=== PATIENT | male | born 1950 | race Caucasian/White ===

== ENCOUNTER 2021-07-03 05:07 | Emergency (ER) | payer MEDICARE, SELFPAY ==
--- NOTE | ~2021-07-03 | XR_ITS ---
EXAMINATION: XR CHEST CLINICAL INFORMATION: Covid COMPARISON: None TECHNIQUE: Frontal view of the chest was obtained. FINDINGS: Cardiac silhouette is normal in size. The lungs are well aerated. There is no lobar consolidation. No pleural effusion or pneumothorax. Dextroscoliosis of the thoracic spine. XR/XR chest 1V IMPRESSION: No acute pulmonary pathology.
--- NOTE | ~2021-07-03 | CT_ITS ---
EXAMINATION: CT HEAD WITHOUT CONTRAST CLINICAL INFORMATION: Dementia. Altered mental status. COMPARISON: None TECHNIQUE: Contiguous axial imaging was performed from the skull base to vertex without intravenous administration of contrast. This CT examination was performed using dose optimization techniques as appropriate, variously including the following: *Automated exposure control *Adjustment of mA and/or kV according to patient size (this includes techniques or standardized protocols for targeted exams where dose is matched to indication/reason for exam; i.e. extremities or head) *Use of iterative reconstruction technique DLP: 703 mGy-cm FINDINGS: There is no evidence of acute intracranial hemorrhage or territorial infarction. No abnormal mass effect or midline shift is seen. Mariano to white matter differentiation is well preserved. No extra-axial fluid collections are identified. Mild prominence of the sulci, which could indicate mild, diffuse parenchymal atrophy. There is no abnormal attenuation within the brain parenchyma. The osseous structures and soft tissues are normal. The mastoid air cells and visualized portions of the paranasal sinuses are well aerated. CT/CT head/brain wo con IMPRESSION: No acute intracranial hemorrhage or mass effect. Mild, diffuse parenchymal atrophy.
[2021-07-03 05:18] VITALS: BP 115/60; BP 119/64; PULSE 70; PULSE 77; RESP 16; TEMP 36.1; O2SAT 96; O2SAT 98; BMI 20.5
[2021-07-03 05:56] LABS: Basophils Percent Auto 0.3 % (0-2); Eosinophils Percent Auto 0.2 % (0-4); Hematocrit 39.8 % (42.0-52.0); Hemoglobin 13.1 g/dl (14.0-18.0); Imm Gran Abs Auto 0.06 X10*3/uL (0.00-0.03); Imm Gran Pct Auto 0.6 % (0.0-0.4); Lymphocytes Absolute Auto 0.8 X10*3/uL (1.2-4.9); Lymphocytes Percent Auto 8.4 % (20-40); MANUAL DIFF FLAG NO; Mean Corpuscular HGB Conc 32.9 g/dl (31.0-36.0); Mean Corpuscular Hemoglobin 30.1 pg (27.0-33.0); Mean Corpuscular Volume 91.5 fL (80.0-98.0); Mean Platelet Volume 9.5 fL (9.4-12.4); Monocytes Absolute Auto 1.1 X10*3/uL (0.1-1.2); Monocytes Percent Auto 12.1 % (2-11); Neutrophils Absolute Auto 7.3 x10*3/uL (2.0-8.3); Neutrophils Percent Auto 78.4 % (45-73); Platelet Count 181 X10*3/uL (160-400); Red Blood Count 4.35 X10*6/uL (4.60-5.80); Red Cell Distribution Width 12.2 % (11.0-16.0); White Blood Count 9.3 X10*3/uL (4.8-10.8)
[2021-07-03 06:01] LABS: COVID-19 Test Positive (Negative); IDNOW Serial# 9DD0AD1C
[2021-07-03 06:10] LABS: Alanine Aminotransferase 16 U/L (0-40); Albumin Level 4.1 g/dL (3.5-5.0); Alkaline Phosphatase 76 U/L (39-117); Anion Gap 11 (12-20); Aspartate Amino Transferase 24 U/L (5-37); Bilirubin Total 0.5 mg/dL (0.0-1.0); Blood Urea Nitrogen 21 mg/dL (9-16); Calcium 9.3 mg/dL (8.4-10.2); Carbon Dioxide 29 mmol/L (22-29); Chloride 102 mmol/L (96-108); Creatinine Clr Calc Pharmacy 61.3; Estimated Glomerular Filt Rate > 60; Glucose Random 129 mg/dL (60-115); Potassium 3.7 mmol/L (3.3-5.1); Sodium 138 mmol/L (135-145); Total Protein 7.1 g/dL (6.5-8.0)
--- NOTE | 2021-07-03 09:21 | ED_ITS ---
HPI - General Adult General Chief complaint: General Medical Stated complaint: ams Time Seen by Provider: 07/03/21 05:38 Source: patient Mode of arrival: ambulatory Limitations: no limitations History of Present Illness HPI narrative: Patient with no significant past medical history noticed that he is losing memory for last few months walked to the police station saying that his needs some help patient was wearing different sizes of shoes states that he could not find the right show at home. Patient does live with his girlfriend was not with him at this time. Patient denies any cough shortness of breath or chest pain Related Data Allergies Allergy/AdvReac Type Severity Reaction Status Date / Time No Known Allergies Allergy Unverified 07/03/21 05:39 Review of Systems Review of Systems: Yes Unobtainable due to mental status PMFSH Social History Social History Advance Directives: No Advance Directives Information Provided: Yes Physical Exam Vital Signs: Vital Signs: Last Vital Signs Temp 98.0 F 07/03/21 09:49 Pulse 70 07/03/21 09:49 Resp 15 07/03/21 09:49 BP 123/72 07/03/21 09:49 Pulse Ox 99 07/03/21 09:49 BMI result Body Mass Index 20.5 Appearance: Alert. Oriented X1-2. No acute distress. Eyes: PERRLA, No Nystagmus no pallor icterus ENT: Pharynx normal. Oral Mucosa moist Neck: Normal inspection. Neck supple. CVS: Normal heart rate and rhythm. Pulses normal. Respiratory: No respiratory distress. Equal air entry bilateral, no wheezing/rales/rhonchi Abdomen: Soft and nontender. Bowel sounds are present, no mass palpable, no CVA tenderness Skin: Skin warm and dry. Normal skin color. Normal skin turgor. Extremities: No lower extremity edema. No calf tenderness Neuro: Oriented X 3. No motor deficit. No sensory deficit.No cerebellar signs , cranial nerves II-XII intact unable to subtract 7 from 100, unable to add numbers, difficulty in judgment and analysis memory at 5 minutes 1/3 Medical Decision Making MDM Narrative Medical decision making narrative: Patient dementia under diagnosis spoke to patient's family with his ex phone number [phone] will come to take the patient home she is aware about the dementia and will follow up with PCP patient has COVID infection not vaccinated new lung infiltrate no hypoxia saturating 99% at room air Lab Data Lab results reviewed: Yes I reviewed the patient's lab results. Result diagrams: 07/03/21 05:51 07/03/21 05:51 Labs: Lab Results 07/03/21 07/03/21 07/03/21 Range/Units 05:51 05:51 05:51 WBC 9.3 (4.8-10.8) X10*3/uL RBC 4.35 L (4.60-5.80) X10*6/uL Hgb 13.1 L (14.0-18.0) g/dl Hct 39.8 L (42.0-52.0) % MCV 91.5 (80.0-98.0) fL MCH 30.1 (27.0-33.0) pg MCHC 32.9 (31.0-36.0) g/dl RDW 12.2 (11.0-16.0) % Plt Count 181 (160-400) X10*3/uL MPV 9.5 (9.4-12.4) fL Immature Gran % (Auto) 0.6 H (0.0-0.4) % Neut % (Auto) 78.4 H (45-73) % Lymph % (Auto) 8.4 L (20-40) % [place] % (Auto) 12.1 H (2-11) % Eos % (Auto) 0.2 (0-4) % Baso % (Auto) 0.3 (0-2) % Lymph # (Auto) 0.8 L (1.2-4.9) X10*3/uL [place] # (Auto) 1.1 (0.1-1.2) X10*3/uL Eos # (Auto) 0.0 (0.0-0.4) X10*3/uL Baso # (Auto) 0.0 (0.0-0.2) X10*3/uL Abs Immat Gran (auto) 0.06 H (0.00-0.03) X10*3/uL Absolute Neuts (auto) 7.3 (2.0-8.3) x10*3/uL Absolute Nucleated RBC 0.000 (0.0-0.012) X10*3/uL Nucleated RBC % (auto) 0.0 (0.0-0.2) /100WBC Sodium 138 (135-145) mmol/L Potassium 3.7 (3.3-5.1) mmol/L Chloride 102 (96-108) mmol/L Carbon Dioxide 29 (22-29) mmol/L Anion Gap 11 L (12-20) BUN 21 H (9-16) mg/dL Creatinine 1.10 (0.5-1.4) mg/dL Estim Creat Clear Calc 61.3 Estimated GFR > 60 Random Glucose 129 H (60-115) mg/dL Calcium 9.3 (8.4-10.2) mg/dL Total Bilirubin 0.5 (0.0-1.0) mg/dL AST 24 (5-37) U/L ALT 16 (0-40) U/L Alkaline Phosphatase 76 (39-117) U/L Total Protein 7.1 (6.5-8.0) g/dL Albumin 4.1 (3.5-5.0) g/dL Urine Color Urine Appearance Urine pH (5.0-8.0) Ur Specific [place] (1.005-1.025) Urine Protein (NEG-TRACE) MG/DL Urine Glucose (UA) (NEG) MG/DL Urine Ketones (NEG) MG/DL Urine Blood (NEG) Urine Nitrite (NEG) Ur Leukocyte Esterase (NEG) Urine RBC (0) /HPF Urine WBC (0-4) /HPF Ur Squamous Epith Cells /LPF Amorphous Sediment /LPF Urine Bacteria /LPF Urine Mucus /LPF COVID-19 (GUILLERMO) Positive A (Negative) COVID-19 Clin Com See Note 07/03/21 Range/Units 12:21 WBC (4.8-10.8) X10*3/uL RBC (4.60-5.80) X10*6/uL Hgb (14.0-18.0) g/dl Hct (42.0-52.0) % MCV (80.0-98.0) fL MCH (27.0-33.0) pg MCHC (31.0-36.0) g/dl RDW (11.0-16.0) % Plt Count (160-400) X10*3/uL MPV (9.4-12.4) fL Immature Gran % (Auto) (0.0-0.4) % Neut % (Auto) (45-73) % Lymph % (Auto) (20-40) % [place] % (Auto) (2-11) % Eos % (Auto) (0-4) % Baso % (Auto) (0-2) % Lymph # (Auto) (1.2-4.9) X10*3/uL [place] # (Auto) (0.1-1.2) X10*3/uL Eos # (Auto) (0.0-0.4) X10*3/uL Baso # (Auto) (0.0-0.2) X10*3/uL Abs Immat Gran (auto) (0.00-0.03) X10*3/uL Absolute Neuts (auto) (2.0-8.3) x10*3/uL Absolute Nucleated RBC (0.0-0.012) X10*3/uL Nucleated RBC % (auto) (0.0-0.2) /100WBC Sodium (135-145) mmol/L Potassium (3.3-5.1) mmol/L Chloride (96-108) mmol/L Carbon Dioxide (22-29) mmol/L Anion Gap (12-20) BUN (9-16) mg/dL Creatinine (0.5-1.4) mg/dL Estim Creat Clear Calc Estimated GFR Random Glucose (60-115) mg/dL Calcium (8.4-10.2) mg/dL Total Bilirubin (0.0-1.0) mg/dL AST (5-37) U/L ALT (0-40) U/L Alkaline Phosphatase (39-117) U/L Total Protein (6.5-8.0) g/dL Albumin (3.5-5.0) g/dL Urine Color YELLOW Urine Appearance CLEAR Urine pH 5.5 (5.0-8.0) Ur Specific [place] >= 1.030 H (1.005-1.025) Urine Protein 1+ H (NEG-TRACE) MG/DL Urine Glucose (UA) NEG (NEG) MG/DL Urine Ketones NEG (NEG) MG/DL Urine Blood NEG (NEG) Urine Nitrite NEG (NEG) Ur Leukocyte Esterase NEG (NEG) Urine RBC 0 (0) /HPF Urine WBC 0 (0-4) /HPF Ur Squamous Epith Cells 1+ /LPF Amorphous Sediment 1+ /LPF Urine Bacteria NONE /LPF Urine Mucus 3+ /LPF COVID-19 (GUILLERMO) (Negative) COVID-19 Clin Com Discharge Plan Discharge Clinical Impression: COVID-19 Dementia Qualifiers: Dementia type: Alzheimer's Alzheimer's disease onset: late-onset Dementia behavioral disturbance: without behavioral disturbance Qualified Code(s): G30.1 - Alzheimer's disease with late onset Patient Disposition: Home, Self-Care Instructions: Dementia (ED), COVID-19 (Coronavirus Disease 2019) (ED) Additional Instructions: Report to the ER if increased shortness of breath follow-up with PCP for further evaluation and treatment Social distancing as advised
--- NOTE | 2021-07-03 09:33 | ECG_ITS ---
Test Reason : GENERAL Blood Pressure : / mmHG Vent. Rate : 069 BPM Atrial Rate : 069 BPM P-R Int : 144 ms QRS Dur : 096 ms QT Int : 414 ms P-R-T Axes : 082 053 058 degrees QTc Int : 443 ms Normal sinus rhythm Normal ECG No previous ECGs available Referred By: Sandip Garcia Electronically Signed By:JOAQUIM FULTON MD
[2021-07-03 09:49] VITALS: BP 123/72; PULSE 70; RESP 15; TEMP 36.7; O2SAT 99
--- NOTE | 2021-07-03 12:07 | MHC.CM.ED ---
Discussed with MD. Patient brought in after self presenting to police department for confusion. No phone number for patient of girlfriend, Elzbieta Waggoner listed. Patient tested positive for COVID-19, ready for dc from ED, need family contacted. Review of chart, no previous records. Not able to locate phone number for Elzbieta. Call to [facility] police department. They report patient called there at [phone] today and then walked into lobby at [phone] with confusion. They do not have contact information for girlfriend or patient's home phone number. They will go by the patient's home and attempt to obtain phone number and call back to us with information.
[2021-07-03 12:28] LABS: Appearance Urine CLEAR; Color Urine YELLOW; Glucose Urine UA NEG (NEG); Leukocyte Esterase Urine NEG (NEG); Nitrite Urine NEG (NEG); PH 5.5 (5.0-8.0); Specific Gravity - Urine >= 1.030 (1.005-1.025); UACC Culture Trigger NO; Urine Blood NEG (NEG); Urine Ketones NEG (NEG); Urine Protein 1+ MG/DL (NEG-TRACE)
[2021-07-03 12:34] LABS: Amorphous Sediment Urine 1+ /LPF; Mucus Urine 3+ /LPF; RBC Urine 0 /HPF (0); Squamous Epithelial Cell Urine 1+ /LPF; WBC Urine 0 /HPF (0-4)
--- NOTE | 2021-07-03 12:49 | MHC.CM.ED ---
Received a return call from [facility] department. They did not obtain a phone number for contact, but reported officer went by home and informed person there that patient is ready for supervisor general from ED and that person stated they would come pick him up. ED RN informed of above
[2021-07-03 14:09] VITALS: BP 116/75; PULSE 85; RESP 16; TEMP 36.7; O2SAT 99
== END 2021-07-03 23:18 | disposition home or self-care (01) ==
PROVIDERS: Student in an Organized Health Care Education/Training Program; Emergency Provider Internal Medicine
DX: U07.1 COVID-19 (principal); G30.1 Alzheimer's disease with late onset
CPT/HCPCS: 70450; 71045; 80053; 81001; 85025; 87635; 93005; 99283; 99284

== ENCOUNTER 2021-12-23 19:36 | Inpatient (IN) | payer MEDICARE, SELFPAY ==
--- NOTE | ~2021-12-23 | CT_ITS ---
EXAMINATION: CT HEAD WITHOUT CONTRAST CLINICAL INFORMATION: New onset psychosis. Rule out CVA. COMPARISON: Previous head CT June 2021 TECHNIQUE: Contiguous axial imaging was performed from the skull base to vertex without intravenous administration of contrast. This CT examination was performed using dose optimization techniques as appropriate, variously including the following: *Automated exposure control *Adjustment of mA and/or kV according to patient size (this includes techniques or standardized protocols for targeted exams where dose is matched to indication/reason for exam; i.e. extremities or head) *Use of iterative reconstruction technique DLP: 831 mGy-cm FINDINGS: There is no evidence of an extra-axial collection. There is no evidence of intra-axial or extra-axial hemorrhage. The ventricles and extra-axial CSF spaces are prominent suggestive of mild generalized atrophy. There is mild nonspecific periventricular white matter disease. No mass, mass effect or infarct is seen. No skull fracture is seen. There are polyps or cysts in the right maxillary sinus. Paranasal sinuses mastoid air cells and middle ears are otherwise clear. CT/CT head/brain wo con IMPRESSION: No acute findings.
[2021-12-23 19:47] VITALS: BP 112/76; PULSE 84; RESP 18; TEMP 36.3; O2SAT 97; BMI 23.1
--- NOTE | 2021-12-23 19:49 | ED_ITS ---
HPI - General Adult General Chief complaint: Psychiatric Symptoms Stated complaint: hallucinations Time Seen by Provider: 12/23/21 19:41 Source: patient Mode of arrival: ambulatory Limitations: no limitations History of Present Illness HPI narrative: Patient comes to the emergency room complaining of visual hallucinations. Patient states that he believes he has been diagnosed with dementia in the past. Over the last 3 years, the visual hallucinations have gradually been getting worse. Patient states that he sees people that he knows or that he does not know, he has very weird vivid dreams. Patient denies SI or HI. Patient is not on any medications. Patient lives with his girlfriend. Lang, patient walked to the police station, stated that he needs help and his hallucinations are getting worse, PD called EMS Related Data Home Medications Medication Instructions Recorded Confirmed No Known Home Meds 12/23/21 12/23/21 Allergies Allergy/AdvReac Type Severity Reaction Status Date / Time No Known Allergies Allergy Unverified 07/03/21 05:39 Review of Systems Review of Systems: Constitutional : No Weight loss, No Fever, No Chills, No Night Sweats, No Fatigue, No Malaise ENT/Mouth : No Hearing loss, No Ear Pain, No Nasal Congestion, No Sinus Pain, No Hoarseness, No sore throat, No Rhinorrhea, No Swallowing Difficulty Eyes: No Eye Pain, No Swelling, No Redness, No Foreign Body, No Discharge, No Vision Changes Cardiovascular : No Chest Pain, No SOB, No Dyspnea on Exertion, No Orthopnea, No Edema, No Palpitations Respiratory : No Cough, No Sputum, No Wheezing, No Smoke Exposure, No Dyspnea Gastrointestinal : No Nausea, No Vomiting, No Diarrhea, No Constipation, No abdominal Pain, No Hematochezia, No Melena Genitourinary : no irregular bleeding, No Dysuria, No Urinary Frequency, No Hematuria, No Urinary Incontinence, No Urgency, No Flank Pain, No Urinary Flow Changes, No Hesitancy Musculoskeletal : No joint pain, No Myalgias, No Joint Swelling Skin : No Skin Lesions, No rash Neuro : No Weakness, No Numbness, No Paresthesias, No Loss of Consciousness, No Dizziness, No Headache Psych : No Anxiety/Panic, No Depression, No SI/HI/AH/VH, No Social Issues, complaining of visual hallucinations, seeing people and having weird dreams Heme/Lymph: No Bruising, No Bleeding,No Lymphadenopathy Endocrine : No Polyuria, No Polydipsia, No Temperature Intolerance PMFSH Social History Social History Advance Directives: No Advance Directives Information Provided: No Physical Exam ED Vital Signs: Vital Signs - 24 hr 12/23/21 19:47 12/24/21 00:02 Temperature 97.3 F 97.4 F Pulse Rate 84 77 Respiratory Rate 18 16 Blood Pressure 112/76 137/77 Pulse Oximetry 97 98 Oxygen Delivery Method Room Air Room Air BMI result Body Mass Index 23.1 Const Other: Appearance: Alert. Oriented X3. No acute distress. Eyes: Pupils equal, round and reactive to light. ENT: Pharynx normal. Neck: Normal inspection. Neck supple. No lymph nodes noted. No crepitus CVS: Normal heart rate and rhythm. Pulses normal. Normal S1 and S2 Respiratory: No respiratory distress. Breath sounds normal. No Wheezing. No rales Abdomen: Soft and nontender. No rigidity. No distention. Skin: Skin warm and dry. Normal skin color. Normal skin turgor. Extremities: No lower extremity edema. No Lacerations. No Rash Neuro: Oriented X 3. No motor deficit. No sensory deficit. Moving all extremities. No slurred speech. CN 2 through 12 grossly intact Psych: calm, cooperative, normal affect, coherent Course Course Course Narrative: Labs are pending. Patient is calm, cooperative. It is possible that his symptoms are from worsening dementia. Patient had a CT scan in June of 2021, showed mild diffuse parenchymal atrophy 1:30am N saw the pt , since the patient's symptoms are not behavioral, this is likely worsening dementia, recommendations: Psych consult and Case Management consult. Medical Decision Making Lab Data Result diagrams: 12/23/21 20:18 12/23/21 20:18 Labs: Lab Results 12/23/21 12/23/21 12/23/21 Range/Units 20:18 20:18 20:18 WBC 6.8 (4.8-10.8) X10*3/uL RBC 4.35 L (4.60-5.80) X10*6/uL Hgb 12.6 L (14.0-18.0) g/dl Hct 38.7 L (42.0-52.0) % MCV 89.0 (80.0-98.0) fL MCH 29.0 (27.0-33.0) pg MCHC 32.6 (31.0-36.0) g/dl RDW 12.5 (11.0-16.0) % Plt Count TNP MPV 10.4 (9.4-12.4) fL Immature Gran % (Auto) 0.1 (0.0-0.4) % Neut % (Auto) 67.9 (45-73) % Lymph % (Auto) 22.7 (20-40) % [place] % (Auto) 8.0 (2-11) % Eos % (Auto) 1.0 (0-4) % Baso % (Auto) 0.3 (0-2) % Lymph # (Auto) 1.5 (1.2-4.9) X10*3/uL [place] # (Auto) 0.5 (0.1-1.2) X10*3/uL Eos # (Auto) 0.1 (0.0-0.4) X10*3/uL Baso # (Auto) 0.0 (0.0-0.2) X10*3/uL Abs Immat Gran (auto) 0.01 (0.00-0.03) X10*3/uL Absolute Neuts (auto) 4.6 (2.0-8.3) x10*3/uL Absolute Nucleated RBC 0.000 (0.0-0.012) X10*3/uL Nucleated RBC % (auto) 0.0 (0.0-0.2) /100WBC Smear Tech's Comments VERIFIED Sodium 139 (135-145) mmol/L Potassium 3.8 (3.3-5.1) mmol/L Chloride 103 (96-108) mmol/L Carbon Dioxide 27 (22-29) mmol/L Anion Gap 13 (12-20) BUN 38 H D (9-16) mg/dL Creatinine 1.25 (0.5-1.4) mg/dL Estim Creat Clear Calc 60.7 Estimated GFR 57 Random Glucose 196 H D (60-115) mg/dL Calcium 9.5 (8.4-10.2) mg/dL Magnesium 2.2 (1.6-2.6) mg/dL Total Bilirubin 1.0 (0.0-1.0) mg/dL Direct Bilirubin 0.4 (0.0-0.5) mg/dL AST 17 (5-37) U/L ALT 9 (0-40) U/L Alkaline Phosphatase 69 (39-117) U/L Total Protein 7.3 (6.5-8.0) g/dL Albumin 4.4 (3.5-5.0) g/dL Urine Color Urine Appearance Urine pH (5.0-8.0) Ur Specific [place] (1.005-1.025) Urine Protein (NEG-TRACE) MG/DL Urine Glucose (UA) (NEG) MG/DL Urine Ketones (NEG) MG/DL Urine Blood (NEG) Urine Nitrite (NEG) Ur Leukocyte Esterase (NEG) Salicylates < 5.0 L (15-30) mg/dL Urine Opiates Screen (Not Detect) Urine Fentanyl Screen (Not Detect) Acetaminophen < 1 (<30) mcg/mL Ur Barbiturates Screen (Not Detect) Ur Phencyclidine Scrn (Not Detect) Ur Amphetamines Screen (Not Detect) U Benzodiazepines Scrn (Not Detect) Urine Cocaine Screen (Not Detect) U Marijuana (THC) Screen (Not Detect) Ethyl Alcohol < 10 mg/dL COVID-19 (GUILLERMO) Negative (Negative) COVID-19 Clin Com See Note 12/23/21 12/23/21 Range/Units 22:37 22:37 WBC (4.8-10.8) X10*3/uL RBC (4.60-5.80) X10*6/uL Hgb (14.0-18.0) g/dl Hct (42.0-52.0) % MCV (80.0-98.0) fL MCH (27.0-33.0) pg MCHC (31.0-36.0) g/dl RDW (11.0-16.0) % Plt Count MPV (9.4-12.4) fL Immature Gran % (Auto) (0.0-0.4) % Neut % (Auto) (45-73) % Lymph % (Auto) (20-40) % [place] % (Auto) (2-11) % Eos % (Auto) (0-4) % Baso % (Auto) (0-2) % Lymph # (Auto) (1.2-4.9) X10*3/uL [place] # (Auto) (0.1-1.2) X10*3/uL Eos # (Auto) (0.0-0.4) X10*3/uL Baso # (Auto) (0.0-0.2) X10*3/uL Abs Immat Gran (auto) (0.00-0.03) X10*3/uL Absolute Neuts (auto) (2.0-8.3) x10*3/uL Absolute Nucleated RBC (0.0-0.012) X10*3/uL Nucleated RBC % (auto) (0.0-0.2) /100WBC Smear Tech's Comments Sodium (135-145) mmol/L Potassium (3.3-5.1) mmol/L Chloride (96-108) mmol/L Carbon Dioxide (22-29) mmol/L Anion Gap (12-20) BUN (9-16) mg/dL Creatinine (0.5-1.4) mg/dL Estim Creat Clear Calc Estimated GFR Random Glucose (60-115) mg/dL Calcium (8.4-10.2) mg/dL Magnesium (1.6-2.6) mg/dL Total Bilirubin (0.0-1.0) mg/dL Direct Bilirubin (0.0-0.5) mg/dL AST (5-37) U/L ALT (0-40) U/L Alkaline Phosphatase (39-117) U/L Total Protein (6.5-8.0) g/dL Albumin (3.5-5.0) g/dL Urine Color DK YELLOW Urine Appearance CLEAR Urine pH 5.5 (5.0-8.0) Ur Specific [place] >= 1.030 H (1.005-1.025) Urine Protein TRACE (NEG-TRACE) MG/DL Urine Glucose (UA) 250 H (NEG) MG/DL Urine Ketones NEG (NEG) MG/DL Urine Blood NEG (NEG) Urine Nitrite NEG (NEG) Ur Leukocyte Esterase NEG (NEG) Salicylates (15-30) mg/dL Urine Opiates Screen Not Detected (Not Detect) Urine Fentanyl Screen Not Detected (Not Detect) Acetaminophen (<30) mcg/mL Ur Barbiturates Screen Not Detected (Not Detect) Ur Phencyclidine Scrn Not Detected (Not Detect) Ur Amphetamines Screen Not Detected (Not Detect) U Benzodiazepines Scrn Not Detected (Not Detect) Urine Cocaine Screen Not Detected (Not Detect) U Marijuana (THC) Screen Not Detected (Not Detect) Ethyl Alcohol mg/dL COVID-19 (GUILLERMO) (Negative) COVID-19 Clin Com Discharge Plan Discharge Clinical Impression: Hallucination, visual, Dementia Patient Disposition: Still a Patient Prescriptions: No Action No Known Home Meds
[2021-12-23 20:34] LABS: Eosinophils Absolute Auto 0.1 X10*3/uL (0.0-0.4); Monocytes Absolute Auto 0.5 X10*3/uL (0.1-1.2); PLT CLUMP 1; SCAN SMEAR FLAG 1
[2021-12-23 20:35] LABS: Basophils Percent Auto 0.3 % (0-2); Hematocrit 38.7 % (42.0-52.0); Hemoglobin 12.6 g/dl (14.0-18.0); Imm Gran Abs Auto 0.01 X10*3/uL (0.00-0.03); Imm Gran Pct Auto 0.1 % (0.0-0.4); Lymphocytes Absolute Auto 1.5 X10*3/uL (1.2-4.9); Lymphocytes Percent Auto 22.7 % (20-40); MANUAL DIFF FLAG SCAN; Mean Corpuscular HGB Conc 32.6 g/dl (31.0-36.0); Mean Platelet Volume 10.4 fL (9.4-12.4); Neutrophils Absolute Auto 4.6 x10*3/uL (2.0-8.3); Neutrophils Percent Auto 67.9 % (45-73); Red Blood Count 4.35 X10*6/uL (4.60-5.80); Red Cell Distribution Width 12.5 % (11.0-16.0)
[2021-12-23 20:41] LABS: COVID-19 Test Negative (Negative)
[2021-12-23 20:43] LABS: Acetaminophen LAB < 1 mcg/mL (<30); Alanine Aminotransferase 9 U/L (0-40); Albumin Level 4.4 g/dL (3.5-5.0); Alkaline Phosphatase 69 U/L (39-117); Anion Gap 13 (12-20); Aspartate Amino Transferase 17 U/L (5-37); Bilirubin Direct 0.4 mg/dL (0.0-0.5); Blood Urea Nitrogen 38 mg/dL (9-16); Calcium 9.5 mg/dL (8.4-10.2); Carbon Dioxide 27 mmol/L (22-29); Chloride 103 mmol/L (96-108); Creatinine Clr Calc Pharmacy 60.7; Estimated Glomerular Filt Rate 57; Ethanol < 10 mg/dL; Glucose Random 196 mg/dL (60-115); Magnesium 2.2 mg/dL (1.6-2.6); Potassium 3.8 mmol/L (3.3-5.1); Salicylate < 5.0 mg/dL (15-30); Sodium 139 mmol/L (135-145); Total Protein 7.3 g/dL (6.5-8.0)
[2021-12-23 20:54] LABS: White Blood Count 6.8 X10*3/uL (4.8-10.8)
[2021-12-23 20:55] LABS: SLIDE REVIEW VERIFIED
--- NOTE | 2021-12-23 21:13 | PHA.MEDREC ---
Pharmacy Consult ? Medication Reconciliation Pharmacy has completed the medication reconciliation. Spoke with patient in , patient is not on any medications or otc meds
[2021-12-23 22:49] LABS: Appearance Urine CLEAR; Color Urine DK YELLOW; Glucose Urine UA 250 MG/DL (NEG); Leukocyte Esterase Urine NEG (NEG); Nitrite Urine NEG (NEG); PH 5.5 (5.0-8.0); Specific Gravity - Urine >= 1.030 (1.005-1.025); Urine Blood NEG (NEG); Urine Ketones NEG (NEG); Urine Protein TRACE MG/DL (NEG-TRACE)
[2021-12-23 23:32] LABS: Amphetamine Screen Urine Not Detected (Not Detect); Barbiturates, Urine Not Detected (Not Detect); Benzodiazepines Screen Urine Not Detected (Not Detect); Cannabinoid Screen Urine Not Detected (Not Detect); Cocaine Screen Urine Not Detected (Not Detect); Fentanyl, urine Not Detected (Not Detect); Opiate Screen Urine Not Detected (Not Detect); Phencyclidine Screen Urine Not Detected (Not Detect)
[2021-12-24 00:02] VITALS: BP 137/77; PULSE 77; RESP 16; TEMP 36.3; O2SAT 98
--- NOTE | 2021-12-24 06:31 | PC.NURSE ---
Patient slept through the night, no distress observed/reported, patient requires redirection related to orientation due to dementia, behavior appropriate, BHN assessed the patient, well engaged, disposition case management referral and psych evaluation, order are in place, patient is currently not on any medication, VSS, will continue to monitor.
--- NOTE | 2021-12-24 11:20 | PC.NURSE ---
Pt inquiring what plan of care is. Pt informed case management will in to see patient at some time today. Pt reports he self presented to the ED via ambulance for memory issues, I can't remember anything and states he hears and sees people that are not there. Pt calm at this time, pleasant, and cooperative with care.
--- NOTE | 2021-12-24 14:07 | MHC.CM.ED ---
Received case management consult overnight. Patient came to the ER due to hallucinations. Patient was cleared by [facility]. Patient was diagnosed with dementia a couple of years ago but hasn't received any follow up with neurology. Patient was cleared by [facility]. Psych consult for medication recommendations and case management consult were recommended. Psych consult is still pending. Copy of NICOLAS rodrigues obtained and placed in chart. Case management will wait until patient is seen by psych to help assist with discharge. T/W spoke with Pat on M5 to verify consult was received. Continue to monitor for d/c needs.
--- NOTE | 2021-12-24 15:56 | PM.PSYCN ---
History of Present Illness Date of Service: 12/24/2021 Chief Complaint: hallucinations Reason for Consult: SESAY Discussed with referring provider: Yes Sources of Information: patient interviewed, chart reviewed and crisis/core team assessment reviewed HPI Narrative: Mr. Yañez is a 71 year-old male with hx of dementia, brought by police as he initially went to police stating reporting hallucinations. Utox neg. CBC wnl, CMP- elevated BUN. Mr. Yañez report she went to police because he thinks his memory is not as good, and has had visual hallucinations for a while. He reports he was here one year ago- he was last here in 07/17/2021. He reports he lives with significant other, Elzbieta but does not know her phone number or anyone else phone number. Initially he was having difficulty telling this movie writer why he was here, stating what did it say in the chart? He is oriented to month, day, date, place but not to year states it is 2022. Clock draw test to get better sense of executive function- shows significant impairment- place numbers in columns but stated on left column with numbers from 1-6. He was not able to place hands when asked to show time: 10 past 11. He does report getting more confused at night. Pt reports he had visual hallucinations 3 days ago, but not today. He is clear in that what he sees other people can't see it. He denies symptoms of depression, anxiety. He denies SI/HI. Attempts to call only number we have in the records- [phone] (it says it is from ex ) were not successful for further history. Mr. Yañez appears to be poor historian and unreliable youth counselor. Past Psychiatric History: Inpatient:none Diagnostics Vital Signs (24Hr): Vital Signs - 24 hr 12/23/21 19:47 12/24/21 00:02 Temperature 97.3 F 97.4 F Pulse Rate 84 77 Respiratory Rate 18 16 Blood Pressure 112/76 137/77 Pulse Oximetry 97 98 Oxygen Delivery Method Room Air Room Air BMI result Body Mass Index 23.1 Labs Results: 12/23/21 20:18 12/23/21 20:18 Labs: Laboratory Results - last 48 hr 12/23/21 12/23/21 12/23/21 20:18 20:18 20:18 WBC 6.8 RBC 4.35 L Hgb 12.6 L Hct 38.7 L MCV 89.0 MCH 29.0 MCHC 32.6 RDW 12.5 Plt Count TNP MPV 10.4 Immature Gran % (Auto) 0.1 Neut % (Auto) 67.9 Lymph % (Auto) 22.7 [place] % (Auto) 8.0 Eos % (Auto) 1.0 Baso % (Auto) 0.3 Lymph # (Auto) 1.5 [place] # (Auto) 0.5 Eos # (Auto) 0.1 Baso # (Auto) 0.0 Abs Immat Gran (auto) 0.01 Absolute Neuts (auto) 4.6 Absolute Nucleated RBC 0.000 Nucleated RBC % (auto) 0.0 Smear Tech's Comments VERIFIED Sodium 139 Potassium 3.8 Chloride 103 Carbon Dioxide 27 Anion Gap 13 BUN 38 H D Creatinine 1.25 Estim Creat Clear Calc 60.7 Estimated GFR 57 Random Glucose 196 H D Calcium 9.5 Magnesium 2.2 Total Bilirubin 1.0 Direct Bilirubin 0.4 AST 17 ALT 9 Alkaline Phosphatase 69 Total Protein 7.3 Albumin 4.4 Urine Color Urine Appearance Urine pH Ur Specific [place] Urine Protein Urine Glucose (UA) Urine Ketones Urine Blood Urine Nitrite Ur Leukocyte Esterase Salicylates < 5.0 L Urine Opiates Screen Urine Fentanyl Screen Acetaminophen < 1 Ur Barbiturates Screen Ur Phencyclidine Scrn Ur Amphetamines Screen U Benzodiazepines Scrn Urine Cocaine Screen U Marijuana (THC) Screen Ethyl Alcohol < 10 COVID-19 (GUILLERMO) Negative COVID-19 Clin Com See Note 12/23/21 12/23/21 22:37 22:37 WBC RBC Hgb Hct MCV MCH MCHC RDW Plt Count MPV Immature Gran % (Auto) Neut % (Auto) Lymph % (Auto) [place] % (Auto) Eos % (Auto) Baso % (Auto) Lymph # (Auto) [place] # (Auto) Eos # (Auto) Baso # (Auto) Abs Immat Gran (auto) Absolute Neuts (auto) Absolute Nucleated RBC Nucleated RBC % (auto) Smear Tech's Comments Sodium Potassium Chloride Carbon Dioxide Anion Gap BUN Creatinine Estim Creat Clear Calc Estimated GFR Random Glucose Calcium Magnesium Total Bilirubin Direct Bilirubin AST ALT Alkaline Phosphatase Total Protein Albumin Urine Color DK YELLOW Urine Appearance CLEAR Urine pH 5.5 Ur Specific [place] >= 1.030 H Urine Protein TRACE Urine Glucose (UA) 250 H Urine Ketones NEG Urine Blood NEG Urine Nitrite NEG Ur Leukocyte Esterase NEG Salicylates Urine Opiates Screen Not Detected Urine Fentanyl Screen Not Detected Acetaminophen Ur Barbiturates Screen Not Detected Ur Phencyclidine Scrn Not Detected Ur Amphetamines Screen Not Detected U Benzodiazepines Scrn Not Detected Urine Cocaine Screen Not Detected U Marijuana (THC) Screen Not Detected Ethyl Alcohol COVID-19 (GUILLERMO) COVID-19 Clin Com Mental Status Exam Mental Status Exam Narrative: Appearance: face and arms appeared overly tanned, which raises concern as to whether pt has been wondering on his own, wearing hospital gown, fair hygiene in NAD Behavior:cooperative, friendly psychomotor: no agitation or retardation noted Speech:clear, difficulty finding words, spontaneous, repetitive, Thought process:repetitive Thought content:no significant substance to content other than he is concern about his memory and had hallucinations. Mood: okay Affect: congruent SI:denies HI:denies VH/AH:none at the moment Delusions: no overt delusional content reported Insight/judgment:impaired x 2 due to severe cognitive impairments. Memory/cog: alert, oriented to month, day, date, not year (2022). executive function significantly impaired, suspect fluctuating pattern of cognitive impairment Medications Allergies Allergies Allergy/AdvReac Type Severity Reaction Status Date / Time No Known Allergies Allergy Unverified 07/03/21 05:39 Assessment & Plan Assessment & Plan (1) Major neurocognitive disorder: Status: Acute Code(s): F03.90 - Unspecified dementia without behavioral disturbance Plan Mr. Yañez is a 71 year-old male w/ hx of dementia, brought in to [facility] by police after he went to police station reporting visual hallucination. In the ED, pt presents as calm, cooperative, reports he is worried about his memory, reports hx of visual hallucinations, which he clearly states knows other people can't see. He reports seeing people at times. His speech pattern is repetitive. He can't provide much information other than that. He can't remember any family member's phone number. He reports he lives with girlfriend. Clock test shows significant executive function impairment, placing numbers from 1-6 on left side of clock, rest of number on right side, unable to place hands showing 10 past eleven. Suspect his type of dementia is most likely of a fluctuating patter, with fairly intact orientation such as Lewy Body Dementia, less likely to be Alzhemeir's. It is also noted significant difficulty finding words, poverty of thought and repetitive pattern. I do not see any acute psychiatric symptoms at this moment either secondary to neurocognitive disorder or primarily psychiatric at this time such as ongoing delusions, suicidality, depression, aggression/combativeness that require inpatient psychiatric level of care. However, I do suspect pt has severe impairments due to neuro cognitive disorder and his ability to care for himself is impaired. - collateral information from Elzbieta (girl friend) [phone]: reports she has noticed memory/cognitive impairments for some years, progressively getting worse, but states he has not seen a doctor, including PCP in years. She reports initially pt presented with enactment of dreams, kicking and punching at night (appears to be REM sleep disorder- typical initial symptoms of synuclein pathologies common in Lewy Body dementia, parkinsons), to visual hallucinations mostly at night, to progressive memory/cog impairments. Elzbieta states she was unaware that pt had gone to police station- sometimes pt does wonder around but comes back. Some brief education given to Elzbieta about progressive nature of his neurocognitive disorder and safety of pt wondering on the streets as his condition progresses. I'm not sure caregiver fully understand extend of Mr. Yañez cognitive impairment and extensive supports that he needs to safely live in the community. I spent ___25___ minutes with the patient and/or on the patient floor today, greater than?50% of which was spent counseling/coordinating care.
--- NOTE | 2021-12-24 16:08 | MHC.CM.ED ---
Addendum entered by Helen Harris 12/24/21 18:36: Fior Melgoza OUTBOUND TELEMARKETER met with pt and then spoke at length with CM. Feels pt probably has Lewy Body dementia and would benefit medication management in [facility]. Fior expresses concerns That pt is not safe to go home, as she is unsure if significant other, Elzbieta, fully understands pt condition and care needs. Fior tells CM that pt does wander, but always comes home and that he is not a prisoner. Deepti OUTBOUND TELEMARKETER aware of [facility] admission. CM did not met with patient at this time, as he will be admitted to [facility] for further care. Addendum entered by Helen Harris 12/24/21 18:27: CM spoke with [place] [employer] Officer will go to home and request S.O. Elzbieta Waggoner to call CM. Elzbieta Waggoner ([phone]). Telephone number is correct. Elzbieta called [facility]. CM spoke with Elzbieta briefly, as prison psychiatrist Fior waiting to speak with her. Pt lives with Elzbieta. Was diagnosed with dementia a couple of years ago in an emergency room. Pt had no follow up. No PCP. Pt did have a PCP in [place] years ago, but does not have transportation. Pt does not take any medications. Pt has been confused and worsening over the past several days, speaking to cars and shrubs. Elzbieta tells CM that their home is safe. CM expressed concerns with Elzbieta as pt walked to the police station in the middle of the night, s/o hallucinations. Elzbieta feels he can come home if he doesn't scare the neighbors . Elzbieta said we could sent him home in an Uber. Again, CM expressed concerns for pt safety with regards to taking an Uber. CM to follow for d/c needs. Original Note: CM attempted to meet with patient, however another patient in the behavioral pod was agitated and striking the plexiglas and computer in the nurses station. CM will return when it is safe to do so. No contact information for pt's girlfriend, Elzbieta Waggoner. Luke text to Fior Melgoza. Will contact PD for assistance, as pt presented to them. CM to follow for d/c needs.
[2021-12-24 17:07] LABS: Estimated Average Glucose 94 mg/dL; Hemoglobin A1c % 4.9 %
[2021-12-24 17:14] LABS: Blood Urea Nitrogen 31 mg/dL (9-16); Creatinine Clr Calc Pharmacy 79.1; Estimated Glomerular Filt Rate > 60
--- NOTE | 2021-12-24 18:33 | MHC.CARE ---
Per Fior Melgoza NP who is completing psych consult, pt is appropriate for S1 as he currently meets criteria for inpt admission due to hallucinations and need for further evaluation and discharge planning.
--- NOTE | 2021-12-24 20:55 | MHC.CM.PN ---
Pt S.O. Elzbieta Waggoner called for update. CM explained that pt will be admitted to [facility] for medication management. The hope is to treat some of his symptoms. Elzbieta aware that pt will need a safe d/c plan, as he left the home in the night and walked to the police station. Elzbieta given contact information for S1. Explained that she would need to call to discuss visiting.
[2021-12-24 22:30] VITALS: BMI 20.3
[2021-12-24 22:45] VITALS: BP 155/72; PULSE 82; RESP 18; TEMP 36.4; O2SAT 99
--- NOTE | 2021-12-24 23:26 | PC.ADMIT ---
71 yo male admitted from [facility] ED POD; patient was brought to ER via [facility] after self-presenting to the police station reporting visual hallucinations and increased memory impairment. Assessed and referred by N Crisis; signed CV upon admission. Patient reports recently being diagnosed with dementia with worsening symptoms including visual hallucinations that are progressing....looking and them being there and looking again and they aren't there. Patient denies any medical history nor medications. Denies any previous psychiatric treatment or issues. Upon arriving to the unit, patient pleasant and calm; alert and able to answering orientation questions yet continually forgets he is in the hospital; forgetful and confused, difficult word finding. Engaged in admission process with TW; soft spoken, flat affect; dressed in hospital attire; tanned, dry-leathery skin; appears thin; reports decreased appetite, not as hungry with >20lb weight loss from his normal weight. Denies issues with sleeping. Patient lives with significant other [place]; per patient and crisis report, patient does not receive community supports or services. Patient reports having a son Dru who lives in [place] with whom he has limited relationship. Denies SI/HI; patient is concerned about safety and wandering d/t memory impairment. Legal signed. Placed on 15 minute safety checks.
[2021-12-25 07:35] VITALS: BP 137/71; PULSE 76; RESP 17; TEMP 36.5; O2SAT 98
[2021-12-25 08:42] LABS: Estimated Average Glucose 108 mg/dL; Hemoglobin A1c % 5.4 %
[2021-12-25 08:44] LABS: Cholesterol 159 mg/dL; HDL Cholesterol 52 mg/dL; LDL Cholesterol Calculated 98 mg/dl; Magnesium 2.2 mg/dL (1.6-2.6); Triglycerides 49 mg/dL
[2021-12-25 09:07] LABS: Free T4 (Free Thyroxine) 1.12 ng/dL (0.71-1.85)
--- NOTE | 2021-12-25 09:40 | HO.PSYADMNOT ---
HPI Date of Service: 12/25/21 Chief Complaint: VH Sources of Information: patient interviewed, chart reviewed and crisis/core team assessment reviewed HPI Subjective Notes: Olson Warning and Conditional Voluntary Healthcare Proxy: No Guardianship: No Medical Problems Affecting Mental Status: No Narrative: Juan José is a 71 y.o. male who carries a dx of dementia, r/o LBD. He presented to [facility] ED on 12/23/21 brought by police due to reporting VH. No substance abuse. Denies alcohol abuse. Per psych consult in the ED ?Mr. Yañez report she went to police because he thinks his memory is not as good, and has had visual hallucinations for a while. He is oriented to month, day, date, place but not to year states it is 2022. Showed executive functioning impairment via Clock drawing test, placing numbers from 1-6 on left side of clock, rest of number on right side, unable to place hands showing 10 past eleven. Pt is found to have severe impairments likely due to neuro cognitive disorder and there is concern for his ability to care for himself. Per collateral information from Elzbieta (girlfriend) [phone]: reports she has noticed memory/cognitive impairments for some years, progressively getting worse, but states he has not seen a doctor, including PCP in years. Pt has hx of enactment of dreams, kicking and punching at night (appears to be REM sleep disorder- typical initial symptoms of synucleinopathy common in Lewy Body dementia, parkinsons), to VH mostly at night, to progressive memory/cog impairments. Elzbieta states she was unaware that pt had gone to police station- sometimes pt does wander around but comes back.? I evaluated the pt this evening and upon interview he reports he is in the hospital because ?I just left my house.? Says ?my memory has been bad,? pt struggles throughout interview with aphasia, recent memory. He is not a reliable historian. 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 and since then he has had financial stress, unable to pay bills, arguing with his gf about money, lost his car. He endorses VH of ?small people around? that are ?right close to me,? sees them ?making faces like they're talking to me.? Per pt, ?its been really tough? and he is ?losing a lot of money,? he cant find a job. Says his sleep is good and he sleeps through the night. When asked if he feels depressed, pt states ?I believe so.? for depression. He denies AH. Says ?the big thing is the job, the car, and the memory loss.? Discussed starting medication for memory loss, however pt is reluctant about psychotropic medication, feels ?uneasiness about it.? Reports he was prescribed medication for anxiety and depression 2-3 years ago from his PCP but he never took it.? Past Psychiatric History: -Inpatient: none -Denies hx of previous psych treatment Medical Evaluation Reviewed: Yes [facility] Social History: -Pt reports he lives with his significant other, Elzbieta. He does report getting more confused at night. Pt reports he had visual hallucinations 3 days ago, but not today. He is clear in that what he sees other people can't see it. He denies symptoms of depression, anxiety. He denies SI/HI. Substance History: -ETOH: pt says he has been abstinent for 10 years Trauma History: -Unknown Diagnostics Vital Signs (24Hr): Vital Signs - 24 hr 12/24/21 22:45 12/25/21 07:35 Temperature 97.6 F 97.7 F Pulse Rate 82 76 Respiratory Rate 18 17 Blood Pressure 155/72 H 137/71 Pulse Oximetry 99 98 Oxygen Delivery Method Room Air Room Air BMI result Body Mass Index 20.3 Labs Results: 12/23/21 20:18 12/24/21 16:48 Labs: Laboratory Results - last 48 hr 12/23/21 12/23/21 12/23/21 20:18 20:18 20:18 WBC 6.8 RBC 4.35 L Hgb 12.6 L Hct 38.7 L MCV 89.0 MCH 29.0 MCHC 32.6 RDW 12.5 Plt Count TNP MPV 10.4 Immature Gran % (Auto) 0.1 Neut % (Auto) 67.9 Lymph % (Auto) 22.7 [place] % (Auto) 8.0 Eos % (Auto) 1.0 Baso % (Auto) 0.3 Lymph # (Auto) 1.5 [place] # (Auto) 0.5 Eos # (Auto) 0.1 Baso # (Auto) 0.0 Abs Immat Gran (auto) 0.01 Absolute Neuts (auto) 4.6 Absolute Nucleated RBC 0.000 Nucleated RBC % (auto) 0.0 Smear Tech's Comments VERIFIED Sodium 139 Potassium 3.8 Chloride 103 Carbon Dioxide 27 Anion Gap 13 BUN 38 H D Creatinine 1.25 Estim Creat Clear Calc 60.7 Estimated GFR 57 Random Glucose 196 H D Estimat Average Glucose Hemoglobin A1c % Calcium 9.5 Magnesium 2.2 Total Bilirubin 1.0 Direct Bilirubin 0.4 AST 17 ALT 9 Alkaline Phosphatase 69 Total Creatine Kinase Total Protein 7.3 Albumin 4.4 Triglycerides Cholesterol LDL Cholesterol, Calc HDL Cholesterol TSH Free T4 Urine Color Urine Appearance Urine pH Ur Specific [place] Urine Protein Urine Glucose (UA) Urine Ketones Urine Blood Urine Nitrite Ur Leukocyte Esterase Salicylates < 5.0 L Urine Opiates Screen Urine Fentanyl Screen Acetaminophen < 1 Ur Barbiturates Screen Ur Phencyclidine Scrn Ur Amphetamines Screen U Benzodiazepines Scrn Urine Cocaine Screen U Marijuana (THC) Screen Ethyl Alcohol < 10 COVID-19 (GUILLERMO) Negative COVID-19 Clin Com See Note 12/23/21 12/23/21 12/24/21 22:37 22:37 16:48 WBC RBC Hgb Hct MCV MCH MCHC RDW Plt Count MPV Immature Gran % (Auto) Neut % (Auto) Lymph % (Auto) [place] % (Auto) Eos % (Auto) Baso % (Auto) Lymph # (Auto) [place] # (Auto) Eos # (Auto) Baso # (Auto) Abs Immat Gran (auto) Absolute Neuts (auto) Absolute Nucleated RBC Nucleated RBC % (auto) Smear Tech's Comments Sodium Potassium Chloride Carbon Dioxide Anion Gap BUN Creatinine Estim Creat Clear Calc Estimated GFR Random Glucose Estimat Average Glucose 94 Hemoglobin A1c % 4.9 Calcium Magnesium Total Bilirubin Direct Bilirubin AST ALT Alkaline Phosphatase Total Creatine Kinase Total Protein Albumin Triglycerides Cholesterol LDL Cholesterol, Calc HDL Cholesterol TSH Free T4 Urine Color DK YELLOW Urine Appearance CLEAR Urine pH 5.5 Ur Specific [place] >= 1.030 H Urine Protein TRACE Urine Glucose (UA) 250 H Urine Ketones NEG Urine Blood NEG Urine Nitrite NEG Ur Leukocyte Esterase NEG Salicylates Urine Opiates Screen Not Detected Urine Fentanyl Screen Not Detected Acetaminophen Ur Barbiturates Screen Not Detected Ur Phencyclidine Scrn Not Detected Ur Amphetamines Screen Not Detected U Benzodiazepines Scrn Not Detected Urine Cocaine Screen Not Detected U Marijuana (THC) Screen Not Detected Ethyl Alcohol COVID-19 (GUILLERMO) COVID-19 Yedda 12/24/21 12/25/21 12/25/21 16:48 07:16 07:16 WBC RBC Hgb Hct MCV MCH MCHC RDW Plt Count MPV Immature Gran % (Auto) Neut % (Auto) Lymph % (Auto) [place] % (Auto) Eos % (Auto) Baso % (Auto) Lymph # (Auto) [place] # (Auto) Eos # (Auto) Baso # (Auto) Abs Immat Gran (auto) Absolute Neuts (auto) Absolute Nucleated RBC Nucleated RBC % (auto) Smear Tech's Comments Sodium Potassium Chloride Carbon Dioxide Anion Gap BUN 31 H Creatinine 0.96 Estim Creat Clear Calc 79.1 Estimated GFR > 60 Random Glucose Estimat Average Glucose 108 Hemoglobin A1c % 5.4 Calcium Magnesium 2.2 Total Bilirubin Direct Bilirubin AST ALT Alkaline Phosphatase Total Creatine Kinase 73 Total Protein Albumin Triglycerides 49 Cholesterol 159 LDL Cholesterol, Calc 98 HDL Cholesterol 52 TSH 2.30 Free T4 1.12 Urine Color Urine Appearance Urine pH Ur Specific [place] Urine Protein Urine Glucose (UA) Urine Ketones Urine Blood Urine Nitrite Ur Leukocyte Esterase Salicylates Urine Opiates Screen Urine Fentanyl Screen Acetaminophen Ur Barbiturates Screen Ur Phencyclidine Scrn Ur Amphetamines Screen U Benzodiazepines Scrn Urine Cocaine Screen U Marijuana (THC) Screen Ethyl Alcohol COVID-19 (GUILLERMO) COVID-19 Yedda Meds/Allergies Meds Home Medications Medication Instructions Recorded Confirmed Type No Known Home Meds 12/23/21 12/23/21 History Allergies Allergies Allergy/AdvReac Type Severity Reaction Status Date / Time No Known Allergies Allergy Unverified 07/03/21 05:39 Mental Status Exam Mental Status Exam Narrative: Appearance: face and arms appeared overly tanned, which raises concern as to whether pt has been wondering on his own, casual attire, fair hygiene, NAD Behavior:cooperative, friendly psychomotor: no agitation or retardation noted Speech: clear, difficulty finding words, spontaneous, repetitive, Thought process: repetitive Thought content: no significant substance to content other than he is concern about his memory and had hallucinations. Mood: okay Affect: congruent SI:denies HI:denies VH/AH:none at the moment Delusions: no overt delusional content reported Insight/judgment:impaired x 2 due to severe cognitive impairments. Memory/cog: alert, oriented to month, day, date, not year (2022). executive function significantly impaired, suspect fluctuating pattern of cognitive impairment Assessment & Plan Assessment & Plan (1) Major neurocognitive disorder: Status: Acute Code(s): F03.90 - Unspecified dementia without behavioral disturbance (2) Hallucination, visual: Status: Acute Code(s): R44.1 - Visual hallucinations (3) Dementia: Status: Acute Code(s): F03.90 - Unspecified dementia without behavioral disturbance Plan Juan José is a 71 y.o. male who carries a dx of dementia, r/o LBD. He presented to [facility] ED on 12/23/21 brought by police due to reporting VH. No substance abuse. Denies alcohol abuse. Pt does not have any known psych hx. He is presenting with inability to care for himself, has been wandering around in the community, unreliable historian. Has been living with his gf who also reports pt has been progressively decompensating in functioning due to cognitive decline. Plan: Discussed cognition enhancing medication i.e. aricept, namenda. However, pt declines. Will continue assessment, engagement, and obtaining collateral contacts. Q15 min safety checks, CV Monitor response to medications. Monitor for safety in the milieu. Discharge on stabilization. Patient seen. Chart reviewed. Discussed with team. Obtain collateral contact info?as needed Patient educated on: medication risk/benefits Reason for continued inpatient stay Substantial Risk for: inability to function and rapid decompensation
[2021-12-25 18:00] VITALS: BP 116/66; PULSE 68; RESP 18; TEMP 36.3; O2SAT 98
[2021-12-26 07:00] VITALS: BP 118/73; PULSE 74; RESP 16; TEMP 36.2; O2SAT 100
--- NOTE | 2021-12-26 11:46 | P.PNPSI_ITS ---
Subjective Subjective Date of Service: 12/26/21 Reason For Visit: VH Subjective Notes: Olson Warning and Conditional Voluntary Healthcare Proxy: No Guardianship: No Medical Problems Affecting Mental Status: No Interim History: Patient seen and discussed with team. Patient evaluated today and upon interview he reports his gf Elzbieta wanted him to ask for his diagnosis and for referrals upon discharge. Pt says I feel I have demons in my body. Says he thinks this because another pt in the milieu told him this and its a good way to describe what I have, referring to his VH. Pt has dementia, says he is not able to remember anything that happens on a daily basis. Pt continues to decline medication, saying Elzbieta really wants me not on medication. In the milieu, patient is safe and visible. Says he feels safe. Attending Groups: Yes Review of Systems Acute medical concerns: No Medical Review of Systems: unchanged Mental Status Exam Mental Status Exam Narrative: Appearance: face and arms appeared overly tanned, which raises concern as to whether pt has been wondering on his own, casual attire, fair hygiene, NAD Behavior:cooperative, friendly psychomotor: no agitation or retardation noted Speech: clear, difficulty finding words, spontaneous, repetitive, Thought process: repetitive Thought content: no significant substance to content other than he is concern about his memory and had hallucinations. Mood: okay Affect: congruent SI:denies HI:denies VH/AH:none at the moment Delusions: no overt delusional content reported Insight/judgment:impaired x 2 due to severe cognitive impairments. Memory/cog: alert, oriented to month, day, date, not year (2022). executive function significantly impaired, suspect fluctuating pattern of cognitive impairment Diagnostics Vital Signs (24Hr): Vital Signs - 24 hr 12/25/21 18:00 12/26/21 07:00 Temperature 97.3 F 97.2 F Pulse Rate 68 74 Respiratory Rate 18 16 Blood Pressure 116/66 118/73 Pulse Oximetry 98 100 Oxygen Delivery Method Room Air Room Air BMI result Body Mass Index 20.3 Labs Results: 12/23/21 20:18 12/24/21 16:48 Labs: Laboratory Results - last 48 hr 12/24/21 12/24/21 12/25/21 16:48 16:48 07:16 BUN 31 H Creatinine 0.96 Estim Creat Clear Calc 79.1 Estimated GFR > 60 Estimat Average Glucose 94 108 Hemoglobin A1c % 4.9 5.4 Magnesium Total Creatine Kinase 73 Triglycerides Cholesterol LDL Cholesterol, Calc HDL Cholesterol TSH Free T4 12/25/21 07:16 BUN Creatinine Estim Creat Clear Calc Estimated GFR Estimat Average Glucose Hemoglobin A1c % Magnesium 2.2 Total Creatine Kinase Triglycerides 49 Cholesterol 159 LDL Cholesterol, Calc 98 HDL Cholesterol 52 TSH 2.30 Free T4 1.12 Medications Medications Current Medications Acetaminophen (Acetaminophen 325 Mg Tablet) 650 mg PO Q6H PRN PRN Reason: Headache/Pain Mild Scale (1-3) Al Hydroxide/Mg Hydroxide (Magnesium Hydrox/Alum Hydrox 30 Ml Oral.Susp) 30 ml PO Q6H PRN PRN Reason: Heartburn/Nausea Hydroxyzine HCl (Hydroxyzine Hcl 25 Mg Tablet) 25 mg PO Q6H PRN PRN Reason: Anxiety Magnesium Hydroxide (Milk Of Magnesia 30 Ml Oral.Susp) 30 ml PO DAILY PRN PRN Reason: Constipation Trazodone HCl (Trazodone Hcl 50 Mg Tablet) 50 mg PO BEDTIME PRN PRN Reason: Insomnia Allergies Allergies Allergy/AdvReac Type Severity Reaction Status Date / Time No Known Allergies Allergy Unverified 07/03/21 05:39 Assessment & Plan Assessment & Plan (1) Major neurocognitive disorder: Status: Acute Code(s): F03.90 - Unspecified dementia without behavioral disturbance (2) Hallucination, visual: Status: Acute Code(s): R44.1 - Visual hallucinations (3) Dementia: Status: Acute Code(s): F03.90 - Unspecified dementia without behavioral disturbance Plan Juan José is a 71 y.o. male who carries a dx of dementia, r/o LBD. He [place] [facility] [place]21 brought by police due to reporting VH. No substance abuse. Denies alcohol abuse. Pt does not have any known psych hx. He is presenting with inability to care for himself, has been wandering around in the community, unreliable historian. Has been living with his gf who also reports pt has been progressively decompensating in functioning due to cognitive decline. Plan: Discussed cognition enhancing medication i.e. aricept, namenda. However, pt declines. Will continue assessment, engagement, and obtaining collateral contacts. 12/25: No medications started as pt adamantly declines Q15 min safety checks, CV Monitor response to medications. Monitor for safety in the milieu. Discharge on stabilization. Patient seen. Chart reviewed. Discussed with team. Obtain collateral contact info?as needed I spent minutes with the patient and/or on the patient floor today, greater than?50% of which was spent counseling/coordinating care. Patient educated on: medication risk/benefits Reason for contiued inpatient stay Substantial Risk for: inability to function and rapid decompensation
[2021-12-26 18:00] VITALS: BP 142/61; PULSE 77; RESP 16; TEMP 36.4; O2SAT 100
[2021-12-27 06:00] VITALS: BP 115/66; PULSE 69; RESP 18; TEMP 37; O2SAT 97
[2021-12-27 18:00] VITALS: BP 147/70; PULSE 77; RESP 17; TEMP 36.1; O2SAT 95
[2021-12-27 19:03] VITALS: BMI 20.3
--- NOTE | 2021-12-27 21:49 | P.PNPSI_ITS ---
Subjective Subjective Date of Service: 12/27/21 Reason For Visit: VH Subjective Notes: Olson Warning and Conditional Voluntary Healthcare Proxy: No Guardianship: No Medical Problems Affecting Mental Status: No Interim History: Patient seen and discussed with team. Patient evaluated today and upon interview pt reports he is doing good. Discussed aricept but he continues to decline medication. says I dont want to rely on medication. He met with the SW. Says he wants to go home and that his gf wants him home. Continues to have VH of people next to me. Says his sleep is good. In the milieu, patient is safe and visible. Says he feels safe. Attending Groups: Yes Review of Systems Acute medical concerns: No Medical Review of Systems: unchanged Mental Status Exam Mental Status Exam Narrative: Appearance: face and arms appeared overly tanned, which raises concern as to whether pt has been wondering on his own, casual attire, fair hygiene, NAD Behavior:cooperative, friendly psychomotor: no agitation or retardation noted Speech: clear, difficulty finding words, spontaneous, repetitive, Thought process: repetitive Thought content: no significant substance to content other than he is concern about his memory and had hallucinations. Mood: good Affect: congruent SI:denies HI:denies VH/AH:none at the moment Delusions: no overt delusional content reported Insight/judgment:impaired x 2 due to severe cognitive impairments. Memory/cog: alert, oriented to month, day, date, not year (2022). executive function significantly impaired, suspect fluctuating pattern of cognitive impairment Diagnostics Vital Signs (24Hr): Vital Signs - 24 hr 12/27/21 06:00 Temperature 98.6 F Pulse Rate 69 Respiratory Rate 18 Blood Pressure 115/66 Pulse Oximetry 97 Oxygen Delivery Method Room Air BMI result Body Mass Index 20.3 Labs Results: 12/23/21 20:18 12/24/21 16:48 Medications Medications Current Medications Acetaminophen (Acetaminophen 325 Mg Tablet) 650 mg PO Q6H PRN PRN Reason: Headache/Pain Mild Scale (1-3) Al Hydroxide/Mg Hydroxide (Magnesium Hydrox/Alum Hydrox 30 Ml Oral.Susp) 30 ml PO Q6H PRN PRN Reason: Heartburn/Nausea Hydroxyzine HCl (Hydroxyzine Hcl 25 Mg Tablet) 25 mg PO Q6H PRN PRN Reason: Anxiety Magnesium Hydroxide (Milk Of Magnesia 30 Ml Oral.Susp) 30 ml PO DAILY PRN PRN Reason: Constipation Trazodone HCl (Trazodone Hcl 50 Mg Tablet) 50 mg PO BEDTIME PRN PRN Reason: Insomnia Allergies Allergies Allergy/AdvReac Type Severity Reaction Status Date / Time No Known Allergies Allergy Unverified 07/03/21 05:39 Assessment & Plan Assessment & Plan (1) Major neurocognitive disorder: Status: Acute Code(s): F03.90 - Unspecified dementia without behavioral disturbance (2) Hallucination, visual: Status: Acute Code(s): R44.1 - Visual hallucinations (3) Dementia: Status: Acute Code(s): F03.90 - Unspecified dementia without behavioral disturbance Plan Juan José is a 71 y.o. male who carries a dx of dementia, r/o LBD. He presented to [facility] [place] [facility] on 12/23/21 brought by police due to reporting VH. No substance abuse. Denies alcohol abuse. Pt does not have any known psych hx. He is presenting with inability to care for himself, has been wandering around in the community, unreliable historian. Has been living with his gf who also reports pt has been progressively decompensating in functioning due to cognitive decline. Plan: Discussed cognition enhancing medication i.e. aricept, namenda. However, pt declines. Will continue assessment, engagement, and obtaining collateral contacts. 12/25: No medications started as pt adamantly declines 12/26: pt med with SW Q15 min safety checks, CV Monitor response to medications. Monitor for safety in the milieu. Discharge on stabilization. Patient seen. Chart reviewed. Discussed with team. Obtain collateral contact info?as needed I spent minutes with the patient and/or on the patient floor today, greater than?50% of which was spent counseling/coordinating care. Patient educated on: medication risk/benefits and therapeutic strategies Reason for contiued inpatient stay Substantial Risk for: inability to function and rapid decompensation
[2021-12-28 06:15] LABS: Folate 14.9 ng/mL (> or = 4.0); Vitamin B12 148 pg/mL (200-900)
[2021-12-28 07:50] VITALS: BP 128/68; PULSE 79; RESP 18; TEMP 36.6; O2SAT 98
--- NOTE | 2021-12-28 09:31 | P.PNPSI_ITS ---
Subjective Subjective Date of Service: 12/27/21 Reason For Visit: VH Interim History: Patient seen and discussed with team. Patient evaluated today and upon interview he reports he doesnt want to rely on medication. I gave patient a handout on aricept anyway. Says he is doing good. He met with SW. Still says he wants to go home. In the milieu, patient is safe and appropriate in behavior. Denies SI/SIB/HI upon inquiry. Denies irritability or assaultive ideation. Says he feels safe. Diagnostics Vital Signs (24Hr): Vital Signs - 24 hr 12/27/21 18:00 Temperature 97 F Pulse Rate 77 Respiratory Rate 17 Blood Pressure 147/70 H Pulse Oximetry 95 Oxygen Delivery Method Room Air BMI result Body Mass Index 20.3 Labs Results: 12/23/21 20:18 12/24/21 16:48 Labs: Laboratory Results - last 48 hr 12/25/21 07:16 Vitamin B12 148 L Folate 14.9 Medications Medications Current Medications Acetaminophen (Acetaminophen 325 Mg Tablet) 650 mg PO Q6H PRN PRN Reason: Headache/Pain Mild Scale (1-3) Al Hydroxide/Mg Hydroxide (Magnesium Hydrox/Alum Hydrox 30 Ml Oral.Susp) 30 ml PO Q6H PRN PRN Reason: Heartburn/Nausea Hydroxyzine HCl (Hydroxyzine Hcl 25 Mg Tablet) 25 mg PO Q6H PRN PRN Reason: Anxiety Magnesium Hydroxide (Milk Of Magnesia 30 Ml Oral.Susp) 30 ml PO DAILY PRN PRN Reason: Constipation Trazodone HCl (Trazodone Hcl 50 Mg Tablet) 50 mg PO BEDTIME PRN PRN Reason: Insomnia Allergies Allergies Allergy/AdvReac Type Severity Reaction Status Date / Time No Known Allergies Allergy Unverified 07/03/21 05:39 Assessment & Plan Assessment & Plan (1) Major neurocognitive disorder: Status: Acute Code(s): F03.90 - Unspecified dementia without behavioral disturbance (2) Hallucination, visual: Status: Acute Code(s): R44.1 - Visual hallucinations (3) Dementia: Status: Acute Code(s): F03.90 - Unspecified dementia without behavioral disturbance Plan Juan José is a 71 y.o. male who carries a dx of dementia, r/o LBD. He presented to [facility] [place] [facility] on 12/23/21 brought by police due to reporting VH. No substance abuse. Denies alcohol abuse. Pt does not have any known psych hx. He is presenting with inability to care for himself, has been wandering around in the community, unreliable historian. Has been living with his gf who also reports pt has been progressively decompensating in functioning due to cognitive decline. Plan: Discussed cognition enhancing medication i.e. aricept, namenda. However, pt declines. Will continue assessment, engagement, and obtaining collateral contacts. 12/25: No medications started as pt adamantly declines 12/26: pt med with SW Q15 min safety checks, CV Monitor response to medications. Monitor for safety in the milieu. Discharge on stabilization. Patient seen. Chart reviewed. Discussed with team. Obtain collateral contact info?as needed I spent minutes with the patient and/or on the patient floor today, greater than?50% of which was spent counseling/coordinating care.
--- NOTE | 2021-12-28 13:39 | P.PNPSI_ITS ---
Subjective Subjective Date of Service: 12/28/21 Reason For Visit: Subjective Notes: Conditional Voluntary Interim History: the nursing staff reported the patient has been pleasant and cooperative, very confused. On interview the patient was pleasant and he can not remember having visual hallucinations at night. He asked to have all the conversation on writing since he can't remeber well Medication Compliance: Yes Side effects from medications: No Attending Groups: Intermittent Review of Systems Acute medical concerns: Yes Medical Review of Systems: unchanged Mental Status Exam Mental Status Exam Patient Appearance: Appropriate Patient Orientation: Person and Situation Level of Consciousness: Awake Patient Behavior: Guarded and Passive Mood Description: Withdrawn Affect Description: Calm Patient Cognition Impaired: Yes Ability to Follow Directions: Good Speech Pattern: Clear Hallucinations: Auditory and Visual Delusions: Paranoid Ideation Perceptual Disturbances: Hallucinations Thought Process: Distracted Thought Content: positive for [place] and positive for Circumstantial Judgement: Fair Diagnostics Vital Signs (24Hr): Vital Signs - 24 hr 12/27/21 18:00 Temperature 97 F Pulse Rate 77 Respiratory Rate 17 Blood Pressure 147/70 H Pulse Oximetry 95 Oxygen Delivery Method Room Air BMI result Body Mass Index 20.3 Labs Results: 12/23/21 20:18 12/24/21 16:48 Labs: Laboratory Results - last 48 hr 12/25/21 07:16 Vitamin B12 148 L Folate 14.9 Medications Medications Current Medications Acetaminophen (Acetaminophen 325 Mg Tablet) 650 mg PO Q6H PRN PRN Reason: Headache/Pain Mild Scale (1-3) Al Hydroxide/Mg Hydroxide (Magnesium Hydrox/Alum Hydrox 30 Ml Oral.Susp) 30 ml PO Q6H PRN PRN Reason: Heartburn/Nausea Hydroxyzine HCl (Hydroxyzine Hcl 25 Mg Tablet) 25 mg PO Q6H PRN PRN Reason: Anxiety Magnesium Hydroxide (Milk Of Magnesia 30 Ml Oral.Susp) 30 ml PO DAILY PRN PRN Reason: Constipation Trazodone HCl (Trazodone Hcl 50 Mg Tablet) 50 mg PO BEDTIME PRN PRN Reason: Insomnia Allergies Allergies Allergy/AdvReac Type Severity Reaction Status Date / Time No Known Allergies Allergy Unverified 07/03/21 05:39 Assessment & Plan Assessment & Plan (1) Major neurocognitive disorder: Status: Acute Code(s): F03.90 - Unspecified dementia without behavioral disturbance (2) Hallucination, visual: Status: Acute Code(s): R44.1 - Visual hallucinations (3) Dementia: Status: Acute Code(s): F03.90 - Unspecified dementia without behavioral disturbance Plan Juan José is a 71 y.o. male who carries a dx of dementia, r/o LBD. He presented to [facility] [place] [facility] on 12/23/21 brought by police due to reporting VH. No substance abuse. Denies alcohol abuse. Pt does not have any known psych hx. He is presenting with inability to care for himself, has been wandering around in the community, unreliable historian. Has been living with his gf who also reports pt has been progressively decompensating in functioning due to cognitive decline. Plan: Discussed cognition enhancing medication i.e. aricept, namenda. However, pt declines. Will continue assessment, engagement, and obtaining collateral contacts. 12/25: No medications started as pt adamantly declines 12/26: pt med with SW Q15 min safety checks, CV Monitor response to medications. Monitor for safety in the milieu. Discharge on stabilization. Patient seen. Chart reviewed. Discussed with team. Obtain collateral contact info?as needed CT-Scan head today I spent __20____ minutes with the patient and/or on the patient floor today, greater than?50% of which was spent counseling/coordinating care. Reason for contiued inpatient stay Substantial Risk for: inability to function, rapid decompensation and med/psych decompensation
[2021-12-28 18:00] VITALS: BP 104/67; PULSE 68; RESP 17; TEMP 36.2; O2SAT 98
[2021-12-29 07:45] VITALS: BP 133/76; PULSE 83; RESP 16; TEMP 36.6; O2SAT 98
--- NOTE | 2021-12-29 15:50 | HO.PSYCHPN ---
Subjective Subjective Date of Service: 12/29/21 Reason For Visit: Subjective Notes: Conditional Voluntary Interim History: The nursing staff reported the patient refused medications Haldol at night. His CT scan did not show any new findings. Today we had a [place] test and she scored 7/30. The patient is severely demented at this moment. On interview the patient was pleasantly confused but easily redirectable. Medication Compliance: Intermittent Side effects from medications: No Attending Groups: Intermittent Review of Systems Acute medical concerns: No Medical Review of Systems: unchanged Mental Status Exam Mental Status Exam Patient Appearance: Well Grooomed Patient Orientation: Person and Situation Level of Consciousness: Awake Patient Behavior: Guarded and Cooperative Mood Description: Withdrawn Affect Description: Constricted Patient Cognition Impaired: Yes Ability to Follow Directions: Fair Speech Pattern: Clear Hallucinations: Visual Delusions: Paranoid Ideation Perceptual Disturbances: Hallucinations Thought Process: Distracted and Evasive Thought Content: positive for [employer] and positive for Poverty of Content Judgement: Fair Diagnostics Vital Signs (24Hr): Vital Signs - 24 hr 12/28/21 18:00 12/29/21 07:45 Temperature 97.2 F 97.8 F Pulse Rate 68 83 Respiratory Rate 17 16 Blood Pressure 104/67 133/76 Pulse Oximetry 98 98 Oxygen Delivery Method Room Air Room Air BMI result Body Mass Index 20.3 Labs Results: 12/23/21 20:18 12/24/21 16:48 Labs: Laboratory Results - last 48 hr 12/25/21 07:16 Vitamin B12 148 L Folate 14.9 Imaging Radiology Impressions: ITS Impressions Head CT 12/28/21 16:27 IMPRESSION: No acute findings. Medications Medications Current Medications Acetaminophen (Acetaminophen 325 Mg Tablet) 650 mg PO Q6H PRN PRN Reason: Headache/Pain Mild Scale (1-3) Al Hydroxide/Mg Hydroxide (Magnesium Hydrox/Alum Hydrox 30 Ml Oral.Susp) 30 ml PO Q6H PRN PRN Reason: Heartburn/Nausea Haloperidol (Haloperidol 0.5 Mg Tablet) 0.5 mg PO BID NIVIA Last Admin: 12/29/21 08:20 Dose: Not Given Hydroxyzine HCl (Hydroxyzine Hcl 25 Mg Tablet) 25 mg PO Q6H PRN PRN Reason: Anxiety Magnesium Hydroxide (Milk Of Magnesia 30 Ml Oral.Susp) 30 ml PO DAILY PRN PRN Reason: Constipation Trazodone HCl (Trazodone Hcl 50 Mg Tablet) 50 mg PO BEDTIME PRN PRN Reason: Insomnia Allergies Allergies Allergy/AdvReac Type Severity Reaction Status Date / Time No Known Allergies Allergy Unverified 07/03/21 05:39 Assessment & Plan Assessment & Plan (1) Major neurocognitive disorder: Status: Acute Code(s): F03.90 - Unspecified dementia without behavioral disturbance (2) Hallucination, visual: Status: Acute Code(s): R44.1 - Visual hallucinations (3) Dementia: Status: Acute Code(s): F03.90 - Unspecified dementia without behavioral disturbance Plan The patient is an elderly male with a long history of progressive dementia admitted for visual hallucinations and psychotic symptoms with an unclear etiology. His CT scan came up negative. Today we did a Hitchcock test and he scored 7/30. Plan 1. Continue rest of medications. 2. Continue Haldol to target psychosis. 3. Start Aricept 5 mg p.o. q.h.s. to target dementia I spent ___20___ minutes with the patient and/or on the patient floor today, greater than?50% of which was spent counseling/coordinating care. Patient educated on: diagnosis Informed Consent: further education needed Reason for contiued inpatient stay Substantial Risk for: inability to function, rapid decompensation and med/psych decompensation
--- NOTE | 2021-12-29 16:23 | MHC.CLN ---
F/U STAFF REPORTS THAT PATIENT IS EATING VERY WELL. CONTINUE REGULAR DIET WITH ENSURE TID.
[2021-12-29 18:00] VITALS: BP 100/57; PULSE 72; RESP 16; TEMP 36.6; O2SAT 100
[2021-12-30 07:00] VITALS: BP 141/66; PULSE 72; RESP 16; TEMP 35.8; O2SAT 98; BMI 20.7
--- NOTE | 2021-12-30 16:36 | P.PNPSI_ITS ---
Subjective Subjective Date of Service: 12/30/21 Reason For Visit: Subjective Notes: Conditional Voluntary Interim History: the patient is court [place] and 01/22. We tried to have a family meeting to but her care friend refused to use a mask and then she got agitated and needed to be escorted out of the hospital. She called him over the phone and he was agitated. The patient has refused to take medications since last night. on interview the patient denies new symptoms Mental Status Exam Mental Status Exam Patient Appearance: Well Grooomed Patient Orientation: Person and Situation Level of Consciousness: Awake Patient Behavior: Guarded Mood Description: Withdrawn Affect Description: Constricted Patient Cognition Impaired: Yes Ability to Follow Directions: Fair Speech Pattern: Clear Hallucinations: None Delusions: Paranoid Ideation Thought Process: Evasive Thought Content: positive for Circumstantial Judgement: Fair Diagnostics Vital Signs (24Hr): Vital Signs - 24 hr 12/29/21 18:00 12/30/21 07:00 Temperature 97.9 F 96.4 F L Pulse Rate 72 72 Respiratory Rate 16 16 Blood Pressure 100/57 L 141/66 H Pulse Oximetry 100 98 Oxygen Delivery Method Room Air Room Air BMI result Body Mass Index 20.7 Labs Results: 12/23/21 20:18 12/24/21 16:48 Imaging Radiology Impressions: ITS Impressions Head CT 12/28/21 16:27 IMPRESSION: No acute findings. Medications Medications Current Medications Acetaminophen (Acetaminophen 325 Mg Tablet) 650 mg PO Q6H PRN PRN Reason: Headache/Pain Mild Scale (1-3) Al Hydroxide/Mg Hydroxide (Magnesium Hydrox/Alum Hydrox 30 Ml Oral.Susp) 30 ml PO Q6H PRN PRN Reason: Heartburn/Nausea Donepezil HCl (Donepezil Hcl 5 Mg Tablet) 5 mg PO BEDTIME [facility] Last Admin: 12/29/21 20:33 Dose: Not Given Haloperidol (Haloperidol 0.5 Mg Tablet) 0.5 mg PO BID [facility] Last Admin: 12/30/21 08:14 Dose: Not Given Hydroxyzine HCl (Hydroxyzine Hcl 25 Mg Tablet) 25 mg PO Q6H PRN PRN Reason: Anxiety Magnesium Hydroxide (Milk Of Magnesia 30 Ml Oral.Susp) 30 ml PO DAILY PRN PRN Reason: Constipation Trazodone HCl (Trazodone Hcl 50 Mg Tablet) 50 mg PO BEDTIME PRN PRN Reason: Insomnia Allergies Allergies Allergy/AdvReac Type Severity Reaction Status Date / Time No Known Allergies Allergy Unverified 07/03/21 05:39 Assessment & Plan Assessment & Plan (1) Major neurocognitive disorder: Status: Acute Code(s): F03.90 - Unspecified dementia without behavioral disturbance (2) Hallucination, visual: Status: Acute Code(s): R44.1 - Visual hallucinations (3) Dementia: Status: Acute Code(s): F03.90 - Unspecified dementia without behavioral disturbance Plan The patient is an elderly male with a long history of progressive dementia admitted for visual hallucinations and psychotic symptoms with an unclear etiology. His CT scan came up negative. Today we did a [place] test and he scored 7/30. Plan 1. Continue rest of medications. 2. Continue Haldol to target psychosis. 3. Start Aricept 5 mg p.o. q.h.s. to target dementia I spent __20____ minutes with the patient and/or on the patient floor today, greater than?50% of which was spent counseling/coordinating care. Reason for contiued inpatient stay Substantial Risk for: inability to function, rapid decompensation and med/psych decompensation
[2021-12-30 21:16] VITALS: BP 146/73; PULSE 75; TEMP 36.6; O2SAT 97
--- NOTE | 2021-12-30 23:11 | PC.NURSE ---
Patient asking about who to speak with about signing myself out of here. TW explained the CV Status he signed upon admission and explained a 3 Day Notice, which he requested to sign. Patient signed a 3 Day Notice this evening that is up 01/04. Copy of his signed CV and 3 Day Notice was given to patient at patient's request. Covering Psychiatric Provider was alerted of signed 3D. MD, SW, UR, CC were notified via email about 3 Day Notice.
[2021-12-31 07:00] VITALS: BP 136/76; PULSE 84; RESP 16; TEMP 36.6; O2SAT 97
--- NOTE | 2021-12-31 13:01 | HO.PSYCHPN ---
Subjective Subjective Date of Service: 12/31/21 Reason For Visit: VH Subjective Notes: Conditional Voluntary Interim History: The nursing staff reported the patient signed a 3 day notice. Yesterday we had a failed family meeting sings partner refused to wear a mask and get into the hospital and she needed to be scored at out of the facility. Later she started calling him and he got agitated. The staff has noticed that the patient is constant cues for ADL less and he needs constantly to be supervised. On interview the patient denies new symptoms he looks confused but redirectable. The social services assistant will try to contact the to try to get into a meeting and get discharge planning. Later on, we could talk with her over the phone and she is not interested that he could get ARiet, willing to get some aftercare and help but our SW will file for adult protective services. Mental Status Exam Mental Status Exam Patient Appearance: Appropriate Patient Orientation: Person and Situation Level of Consciousness: Awake Patient Behavior: Guarded and Passive Mood Description: Withdrawn Affect Description: Constricted Patient Cognition Impaired: Yes Ability to Follow Directions: Good Speech Pattern: Clear Hallucinations: None Delusions: Paranoid Ideation Thought Process: Distracted and Confusion Thought Content: positive for [place] and positive for Circumstantial Judgement: Poor Diagnostics Vital Signs (24Hr): Vital Signs - 24 hr 12/30/21 21:16 12/31/21 07:00 Temperature 98 F 98 F Pulse Rate 75 84 Respiratory Rate 16 Blood Pressure 146/73 H 136/76 Pulse Oximetry 97 97 Oxygen Delivery Method Room Air Room Air BMI result Body Mass Index 20.7 Labs Results: 12/23/21 20:18 12/24/21 16:48 Imaging Radiology Impressions: ITS Impressions Head CT 12/28/21 16:27 IMPRESSION: No acute findings. Medications Medications Current Medications Acetaminophen (Acetaminophen 325 Mg Tablet) 650 mg PO Q6H PRN PRN Reason: Headache/Pain Mild Scale (1-3) Al Hydroxide/Mg Hydroxide (Magnesium Hydrox/Alum Hydrox 30 Ml Oral.Susp) 30 ml PO Q6H PRN PRN Reason: Heartburn/Nausea Donepezil HCl (Donepezil Hcl 5 Mg Tablet) 5 mg PO BEDTIME [facility] Last Admin: 12/30/21 22:04 Dose: Not Given Haloperidol (Haloperidol 0.5 Mg Tablet) 0.5 mg PO BID [facility] Last Admin: 12/31/21 08:50 Dose: Not Given Hydroxyzine HCl (Hydroxyzine Hcl 25 Mg Tablet) 25 mg PO Q6H PRN PRN Reason: Anxiety Magnesium Hydroxide (Milk Of Magnesia 30 Ml Oral.Susp) 30 ml PO DAILY PRN PRN Reason: Constipation Trazodone HCl (Trazodone Hcl 50 Mg Tablet) 50 mg PO BEDTIME PRN PRN Reason: Insomnia Allergies Allergies Allergy/AdvReac Type Severity Reaction Status Date / Time No Known Allergies Allergy Unverified 07/03/21 05:39 Assessment & Plan Assessment & Plan (1) Major neurocognitive disorder: Status: Acute Code(s): F03.90 - Unspecified dementia without behavioral disturbance (2) Hallucination, visual: Status: Acute Code(s): R44.1 - Visual hallucinations (3) Dementia: Status: Acute Code(s): F03.90 - Unspecified dementia without behavioral disturbance Plan The patient is an elderly male with a long history of progressive dementia admitted for visual hallucinations and psychotic symptoms with an unclear etiology. His CT scan came up negative. Today we did a [place] test and he scored 7/30. Plan 1. Continue rest of medications. 2. Continue Haldol to target psychosis. 3. Start Aricept 5 mg p.o. q.h.s. to target dementia I spent __20____ minutes with the patient and/or on the patient floor today, greater than?50% of which was spent counseling/coordinating care. Reason for contiued inpatient stay Substantial Risk for: inability to function, rapid decompensation and med/psych decompensation
--- NOTE | 2021-12-31 14:53 | MHC.CLN ---
F/U STAFF REPORTS THAT PATIENT IS EATING VERY WELL. CONTINUE REGULAR DIET WITH ENSURE TID. RD TO FOLLOW WEEKLY.
[2021-12-31 18:00] VITALS: BP 111/55; PULSE 76; RESP 18; TEMP 36.7; O2SAT 96
[2022-01-01 06:00] VITALS: BP 114/70; PULSE 71; RESP 17; TEMP 36; O2SAT 98
--- NOTE | 2022-01-01 18:28 | P.PNPSI_ITS ---
Subjective Subjective Date of Service: 01/01/22 Reason For Visit: Interim History: Patient friendly on approach. Patient sitting in day room playing cards with peers. No complaints to senior mortgage underwriter. He told senior mortgage underwriter and others that he had a 3 day notice in. Staff reports patient refused meds and told nursing that the doctor said it was okay Mental Status Exam Mental Status Exam Patient Appearance: Appropriate Patient Orientation: Person and Situation Level of Consciousness: Awake Patient Behavior: Cooperative Mood Description: Calm Affect Description: Constricted Patient Cognition Impaired: Yes Ability to Follow Directions: Good Speech Pattern: Clear Hallucinations: None Delusions: Paranoid Ideation Thought Process: Distracted and Confusion Thought Content: positive for [place] Judgement: Poor Diagnostics Vital Signs (24Hr): Vital Signs - 24 hr 01/01/22 06:00 Temperature 96.8 F Pulse Rate 71 Respiratory Rate 17 Blood Pressure 114/70 Pulse Oximetry 98 Oxygen Delivery Method Room Air BMI result Body Mass Index 20.7 Labs Results: 12/23/21 20:18 12/24/21 16:48 Imaging Radiology Impressions: ITS Impressions Head CT 12/28/21 16:27 IMPRESSION: No acute findings. Medications Medications Current Medications Acetaminophen (Acetaminophen 325 Mg Tablet) 650 mg PO Q6H PRN PRN Reason: Headache/Pain Mild Scale (1-3) Al Hydroxide/Mg Hydroxide (Magnesium Hydrox/Alum Hydrox 30 Ml Oral.Susp) 30 ml PO Q6H PRN PRN Reason: Heartburn/Nausea Donepezil HCl (Donepezil Hcl 5 Mg Tablet) 5 mg PO BEDTIME [facility] Last Admin: 12/31/21 20:26 Dose: Not Given Haloperidol (Haloperidol 0.5 Mg Tablet) 0.5 mg PO BID [facility] Last Admin: 01/01/22 08:02 Dose: Not Given Hydroxyzine HCl (Hydroxyzine Hcl 25 Mg Tablet) 25 mg PO Q6H PRN PRN Reason: Anxiety Magnesium Hydroxide (Milk Of Magnesia 30 Ml Oral.Susp) 30 ml PO DAILY PRN PRN Reason: Constipation Trazodone HCl (Trazodone Hcl 50 Mg Tablet) 50 mg PO BEDTIME PRN PRN Reason: Insomnia Allergies Allergies Allergy/AdvReac Type Severity Reaction Status Date / Time No Known Allergies Allergy Unverified 07/03/21 05:39 Assessment & Plan Assessment & Plan (1) Major neurocognitive disorder: Status: Acute Code(s): F03.90 - Unspecified dementia without behavioral disturbance (2) Hallucination, visual: Status: Acute Code(s): R44.1 - Visual hallucinations (3) Dementia: Status: Acute Code(s): F03.90 - Unspecified dementia without behavioral disturbance Plan The patient is an elderly male with a long history of progressive dementia admitted for visual hallucinations and psychotic symptoms with an unclear etiology. His CT scan came up negative. Today we did a [place] test and he scored 7/30. Plan 1. Continue rest of medications. 2. Continue Haldol to target psychosis. 3. Start Aricept 5 mg p.o. q.h.s. to target dementia 01/01 continue current regimen Though Patient refused medications 3 day notice placed (nursing reports) I spent minutes with the patient and/or on the patient floor today, greater than?50% of which was spent counseling/coordinating care. Reason for contiued inpatient stay Substantial Risk for: med/psych decompensation
[2022-01-01 21:33] VITALS: BP 111/60; PULSE 72; RESP 14; TEMP 36.6; O2SAT 99
[2022-01-02 06:00] VITALS: BP 100/56; PULSE 70; RESP 18; TEMP 36.4; O2SAT 97
--- NOTE | 2022-01-02 17:00 | HO.PSYCHPN ---
Subjective Subjective Date of Service: 01/02/22 Reason For Visit: Interim History: pt polite, friendly on approach; asks group underwriter how he's doing. No complaints and no requests. Pt refused Haldol today. He talked about 3 day notice and hopeful about discharge. Mental Status Exam Mental Status Exam Patient Appearance: Appropriate Patient Orientation: Person and Situation Level of Consciousness: Awake Patient Behavior: Cooperative Mood Description: Calm Affect Description: Constricted Patient Cognition Impaired: Yes Ability to Follow Directions: Good Speech Pattern: Clear Hallucinations: None Delusions: Paranoid Ideation Thought Process: Distracted and Confusion Thought Content: positive for [place] Judgement: Poor Diagnostics Vital Signs (24Hr): Vital Signs - 24 hr 01/01/22 21:33 01/02/22 06:00 Temperature 97.8 F 97.5 F Pulse Rate 72 70 Respiratory Rate 14 18 Blood Pressure 111/60 100/56 L Pulse Oximetry 99 97 Oxygen Delivery Method Room Air Room Air BMI result Body Mass Index 20.7 Labs Results: 12/23/21 20:18 12/24/21 16:48 Imaging Radiology Impressions: ITS Impressions Head CT 12/28/21 16:27 IMPRESSION: No acute findings. Medications Medications Current Medications Acetaminophen (Acetaminophen 325 Mg Tablet) 650 mg PO Q6H PRN PRN Reason: Headache/Pain Mild Scale (1-3) Al Hydroxide/Mg Hydroxide (Magnesium Hydrox/Alum Hydrox 30 Ml Oral.Susp) 30 ml PO Q6H PRN PRN Reason: Heartburn/Nausea Donepezil HCl (Donepezil Hcl 5 Mg Tablet) 5 mg PO BEDTIME [facility] Last Admin: 01/01/22 20:47 Dose: Not Given Haloperidol (Haloperidol 0.5 Mg Tablet) 0.5 mg PO BID [facility] Last Admin: 01/02/22 08:37 Dose: Not Given Hydroxyzine HCl (Hydroxyzine Hcl 25 Mg Tablet) 25 mg PO Q6H PRN PRN Reason: Anxiety Magnesium Hydroxide (Milk Of Magnesia 30 Ml Oral.Susp) 30 ml PO DAILY PRN PRN Reason: Constipation Trazodone HCl (Trazodone Hcl 50 Mg Tablet) 50 mg PO BEDTIME PRN PRN Reason: Insomnia Allergies Allergies Allergy/AdvReac Type Severity Reaction Status Date / Time No Known Allergies Allergy Unverified 07/03/21 05:39 Assessment & Plan Assessment & Plan (1) Major neurocognitive disorder: Status: Acute Code(s): F03.90 - Unspecified dementia without behavioral disturbance (2) Hallucination, visual: Status: Acute Code(s): R44.1 - Visual hallucinations (3) Dementia: Status: Acute Code(s): F03.90 - Unspecified dementia without behavioral disturbance Plan The patient is an elderly male with a long history of progressive dementia admitted for visual hallucinations and psychotic symptoms with an unclear etiology. His CT scan came up negative. Today we did a [place] test and he scored 7/30. Plan 1. Continue rest of medications. 2. Continue Haldol to target psychosis. 3. Start Aricept 5 mg p.o. q.h.s. to target dementia 01/01 continue current regimen Though Patient refused medications 3 day notice placed (nursing reports) 01/02 no changes in tx plan I spent minutes with the patient and/or on the patient floor today, greater than?50% of which was spent counseling/coordinating care. Patient educated on: therapeutic strategies Informed Consent: understands Reason for contiued inpatient stay Substantial Risk for: med/psych decompensation
[2022-01-02 18:00] VITALS: BP 125/60; PULSE 66; RESP 18; TEMP 36.9; O2SAT 98
[2022-01-03 07:00] VITALS: BP 127/58; PULSE 67; RESP 17; TEMP 36.9; O2SAT 98
--- NOTE | 2022-01-03 15:08 | P.PNPSI_ITS ---
Subjective Subjective Date of Service: 01/03/22 Reason For Visit: VH Subjective Notes: Conditional Voluntary and 3 Day Interim History: the nursing staff reported the patient has being pleasant, he has refused medications. There has not be evidence of auditory or visual hallucinations. He looks pleasantly confused but easily redirectable. On interview the patient is aware that he is going to be discharged tomorrow. Aftercare is been arranged at this moment. Mental Status Exam Mental Status Exam Patient Appearance: Appropriate Patient Orientation: Person Level of Consciousness: Awake Patient Behavior: Passive Mood Description: Withdrawn Affect Description: Constricted Patient Cognition Impaired: Yes Ability to Follow Directions: Fair Speech Pattern: Clear Hallucinations: None Delusions: Not Present Thought Process: Illogical and Distracted Thought Content: positive for [place] of Content Judgement: Poor Diagnostics Vital Signs (24Hr): Vital Signs - 24 hr 01/02/22 18:00 01/03/22 07:00 Temperature 98.5 F 98.5 F Pulse Rate 66 67 Respiratory Rate 18 17 Blood Pressure 125/60 127/58 L Pulse Oximetry 98 98 Oxygen Delivery Method Room Air Room Air BMI result Body Mass Index 20.7 Labs Results: 12/23/21 20:18 12/24/21 16:48 Imaging Radiology Impressions: ITS Impressions Head CT 12/28/21 16:27 IMPRESSION: No acute findings. Medications Medications Current Medications Acetaminophen (Acetaminophen 325 Mg Tablet) 650 mg PO Q6H PRN PRN Reason: Headache/Pain Mild Scale (1-3) Al Hydroxide/Mg Hydroxide (Magnesium Hydrox/Alum Hydrox 30 Ml Oral.Susp) 30 ml PO Q6H PRN PRN Reason: Heartburn/Nausea Donepezil HCl (Donepezil Hcl 5 Mg Tablet) 5 mg PO BEDTIME [facility] Last Admin: 01/02/22 19:36 Dose: Not Given Haloperidol (Haloperidol 0.5 Mg Tablet) 0.5 mg PO BID [facility] Last Admin: 01/03/22 08:31 Dose: Not Given Hydroxyzine HCl (Hydroxyzine Hcl 25 Mg Tablet) 25 mg PO Q6H PRN PRN Reason: Anxiety Magnesium Hydroxide (Milk Of Magnesia 30 Ml Oral.Susp) 30 ml PO DAILY PRN PRN Reason: Constipation Trazodone HCl (Trazodone Hcl 50 Mg Tablet) 50 mg PO BEDTIME PRN PRN Reason: Insomnia Allergies Allergies Allergy/AdvReac Type Severity Reaction Status Date / Time No Known Allergies Allergy Unverified 07/03/21 05:39 Assessment & Plan Assessment & Plan (1) Major neurocognitive disorder: Status: Acute Code(s): F03.90 - Unspecified dementia without behavioral disturbance (2) Hallucination, visual: Status: Acute Code(s): R44.1 - Visual hallucinations (3) Dementia: Status: Acute Code(s): F03.90 - Unspecified dementia without behavioral disturbance Plan The patient is an elderly male with a long history of progressive dementia admitted for visual hallucinations and psychotic symptoms with an unclear etiology. His CT scan came up negative. Today we did a [place] test and he scored 7/30. Plan 1. Continue rest of medications. 2. Continue Haldol to target psychosis and Aricept. Patient remains non- compliant. 3. Discharge tomorrow I spent ___20___ minutes with the patient and/or on the patient floor today, greater than?50% of which was spent counseling/coordinating care. Reason for contiued inpatient stay Substantial Risk for: inability to function, rapid decompensation and med/psych decompensation
[2022-01-03 20:58] VITALS: BP 130/69; PULSE 84; TEMP 37.3; O2SAT 97
[2022-01-04 07:00] VITALS: BP 113/60; PULSE 85; RESP 16; TEMP 37.2; O2SAT 98
[2022-01-04 08:54] LABS: COVID-19 Test Positive (Negative)
--- NOTE | 2022-01-04 11:37 | PM.PSYDC ---
DS: Providers Provider Date of Service: 01/04/22 Date of admission: 12/24/21 22:22 Date of discharge: 01/04/22 Primary care physician: Unknown Physician DS: Diagnosis Discharge Diagnosis (1) Major neurocognitive disorder: Status: Acute (2) Hallucination, visual: Status: Acute (3) Dementia: Status: Acute DS: Medications Discharge Medications Home Medications: Home Medications Medication Instructions Recorded Confirmed No Known Home Meds 12/23/21 12/23/21 Mental Status Exam Mental Status Exam Patient Appearance: Appropriate Patient Orientation: Person and Situation Level of Consciousness: Awake Patient Behavior: Cooperative Mood Description: Calm Affect Description: Withdrawn Patient Cognition Impaired: Yes Ability to Follow Directions: Good Speech Pattern: Clear Hallucinations: None Delusions: Not Present Thought Process: Distracted and Confusion Thought Content: positive for [place] Judgement: Poor Data Data Completed and Pending Completed studies during hospitalization [Text1]: 01/04/22 08:30 COVID-19 (GUILLERMO) Positive A COVID-19 Clin Com See Note Imaging Diagnostic Imaging Impressions Head CT 12/28/21 16:27 IMPRESSION: No acute findings. DS: Summary Hospital Course Hospital Course: The patient was admitted for exacerbation of dementia elicited by poor short-term memory, confusion and irritability. Also on admission the crisis team described psychotic symptoms such as visual hallucinations, auditory hallucinations and disorganized thought processes. Please see HPI of the admission note for further details. On admission, the workup for dementia was done, there were no evidence of vitamin deficiency or any other reversal dimensions. According to collateral information, his cognition started getting worse several years ago and it has been progressive. We did a [place] test he scored 7/30. While he was in the unit, there was no evidence of psychotic symptoms but he has short-term memory was really bad and he needed constant redirection and cues for ADL less. Even though, he was pleasant and cooperative. We tried to have a family meeting but he is partner refused to wear a mask and she was not allowed to get into the premises of the hospital. He got very agitated over the phone but he was easily deescalated with verbal intervention. Later we have the family meeting over the telephone and his partner was not interested to using medications to control his progressive dementia and psychosis. The patient signed a 3 day notice, even though that he does not have capacity to give informed decisions we did see any evidence of psychosis while admitted. Since there were no safety concerns discharge planning was discussed. The day of the discharge appear was COVID positive and he was tested positive but he was completely asymptomatic. We discussed with the partner who lives with him and she was aware the risks of the possibility of breann COVID and she was okay. Status at Discharge Cognitive/behavioral status at discharge: Very poor Functional status at discharge: independent ambulation Overall status at discharge: patient is back to baseline Time Spent with Patient Time attestation: Total time spent providing and/or coordinating discharge services: Time spent: Less than 30 minutes Discharge Plan Discharge Patient Disposition: Home, Self-Care Discharge Diagnosis: delirium in dressing motion with psychotic symptoms. Dementia advanced Referrals: [facility] [Other] - 3-5 Days (Referral placed for [facility]. [facility] to follow up with you within 72 hours of discharge to schedule initial visit. ) Dr Ohara [facility] [place] [Other] - 01/05/22 10:10 am (Your next appointment with Dr Ohara for primary care is this Monday01/05/22, at 10:10am in office. Please make an effort to attend appointment for appropriate primary care and medical follow up. ) [email or web address] [Other] - 1 Week (Walk in appt) Discharge Medications: New haloperidol 0.5 mg Tablet 0.5 mg PO BID 30 Days Qty: 60 0RF donepezil 5 mg Tablet 5 mg PO BEDTIME 30 Days Qty: 30 0RF Discharge Orders: Discharge Order (Routine); Ordered 01/04/22 Ordered By: Sterling Carson Diet: Advance to usual diet Activity on Discharge: As tolerated Stand Alone Forms: Patient Portal Discharge page Care Plan Goals: care plan goals achieved in this admission Health Concerns: currently with COVID-19 infection but no symptoms. Plan of Treatment: Continue outpatient services Assessment: elderly male with a history of dementia that has worsened in the last years admitted for psychotic symptoms resolved by itself without any intervention. He is not compliant with medications but he is safe in the community.
== END 2022-01-04 12:37 | disposition home or self-care (01) | DRG 884 ==
LOC: HO.ED 12-24 19:13 → HO.PGERI 12-24 23:06
PROVIDERS: Emergency Medicine; Social Worker; Admitting Provider Registered Nurse; Emergency Provider Emergency Medicine Emergency Medical Services; Visit Provider Psychiatry & Neurology Psychiatry
DX: F03.91 Unspecified dementia, unspecified severity, with behavioral disturbance (principal); U07.1 COVID-19; R44.1 Visual hallucinations; Z91.83 Wandering in diseases classified elsewhere
CPT/HCPCS: 36415; 70450; 80048; 80061; 80076; 80143; 80179; 80307; 81003; 82077; 82550; 82565; 82607; 82746; 83036; 83735; 84439; 84443; 84520; 85025; 87635; 99285

== ENCOUNTER 2022-06-19 08:02 | Emergency (ER) | payer MEDICARE, SELFPAY ==
--- NOTE | 2022-06-19 08:04 | ECG_ITS ---
Test Reason : Altered Mental Status Blood Pressure : / mmHG Vent. Rate : 059 BPM Atrial Rate : 059 BPM P-R Int : 166 ms QRS Dur : 102 ms QT Int : 434 ms P-R-T Axes : 080 052 051 degrees QTc Int : 429 ms Sinus bradycardia Otherwise normal ECG When compared to the previous EKG of No significant changes seen Referred By: Stephanie Pop Electronically Signed By:Riki Pfeiffer
[2022-06-19 08:13] VITALS: BP 113/65; BP 147/77; PULSE 66; PULSE 67; RESP 16; TEMP 36.6; O2SAT 100; BMI 21.7
[2022-06-19 08:22] LABS: MANUAL DIFF FLAG NO
[2022-06-19 08:25] LABS: Basophils Absolute Auto 0.1 X10*3/uL (0.0-0.2); Hemoglobin 13.1 g/dl (14.0-18.0); Lymphocytes Absolute Auto 1.3 X10*3/uL (1.2-4.9); Monocytes Absolute Auto 0.5 X10*3/uL (0.1-1.2); PLT CLUMP 1; Red Cell Distribution Width 12.6 % (11.0-16.0); SCAN SMEAR FLAG 1
[2022-06-19 08:27] LABS: Eosinophils Absolute Auto 0.3 X10*3/uL (0.0-0.4); Eosinophils Percent Auto 5.5 % (0-4); Hematocrit 39.7 % (42.0-52.0); Imm Gran Abs Auto 0.01 X10*3/uL (0.00-0.03); Imm Gran Pct Auto 0.2 % (0.0-0.4); Lymphocytes Percent Auto 26.5 % (20-40); Mean Corpuscular Hemoglobin 29.9 pg (27.0-33.0); Mean Corpuscular Volume 90.6 fL (80.0-98.0); Mean Platelet Volume 11.1 fL (9.4-12.4); Monocytes Percent Auto 9.7 % (2-11); Neutrophils Absolute Auto 2.8 x10*3/uL (2.0-8.3); Neutrophils Percent Auto 57.1 % (45-73); Red Blood Count 4.38 X10*6/uL (4.60-5.80)
--- OUTSIDE RECORDS SUMMARY | 2022-06-19 08:37 | XMS_ITS | Continuity of Care Document ---
:1950 Demographics Address [address] [facility] [place] [address] Mobile Email Address Preferred Language so Marital Status Islam Affiliation Unknown Race White Ethnic Group Not or
--- OUTSIDE RECORDS SUMMARY | 2022-06-19 08:37 | XMS_ITS | Continuity of Care Document ---
:1950
--- NOTE | 2022-06-19 08:39 | ED.GENADULT ---
HPI - General Adult General Chief complaint: General Medical Stated complaint: FAMILY WANTS MATEO,HX DEMENTIA,SEEN FOR SAME RECENT Time Seen by Provider: 06/19/22 08:04 Source: patient and EMS Mode of arrival: EMS History of Present Illness HPI narrative: 72-year-old male who is brought in by EMS when the sent him in for decreased sleep, confusion (patient has dementia at baseline) as well as wandering at night. Patient himself states that he has had some chills and some mild shortness of breath but otherwise denies any chest pain/palpitations and states he has been eating and drinking well as well as peeing and pooping. At this time he denies any acute complaints. Related Data Previous Rx's Medication Instructions Recorded donepezil 5 mg tablet 5 mg PO BEDTIME 30 days #30 tabs 01/04/22 haloperidol 0.5 mg tablet 0.5 mg PO BID 30 days #60 tabs 01/04/22 Allergies Allergy/AdvReac Type Severity Reaction Status Date / Time No Known Allergies Allergy Unverified 07/03/21 05:39 Review of Systems Review of Systems: Pertinent positives and negatives as stated in HPI. [facility] Past Medical History Source: nursing notes reviewed Social History Social History Household Members: Significant Other Housing: Other Housing Other:: [facility] Do you presently have visiting nurse or other home services: No Patient Tobacco Use Status: Never used Tobacco Advance Directives: No Advance Directives Information Provided: No service: No Sexual orientation: Straight/Heterosexual Physical Exam ED Vital Signs: Vital Signs - 24 hr 06/19/22 08:13 06/19/22 08:47 06/19/22 10:33 Temperature 98 F 98 F 98.0 F Pulse Rate 66 59 57 Respiratory Rate 16 18 18 Blood Pressure 113/65 113/61 116/65 Pulse Oximetry 100 98 98 Oxygen Delivery Method Room Air Room Air Room Air BMI result Body Mass Index 21.7 VITAL SIGNS: Reviewed. GENERAL: Well developed, well nourished, in no acute distress. HEAD: Normocephalic/atraumatic EYES: PERRLA, EOMI EARS: Ext canals without abnormality OROPHARYNX: no oral lesions noted, posterior pharynx clear LUNGS: Normal breath sounds. No adventitious sounds or accessory muscle use. SpO2<100> CARDIOVASCULAR: Regular rate and rhythm without noted murmurs ABDOMEN: Soft, non-tender, non-distended with bowel sounds. MUSCULOSKELETAL: No tenderness, deformities, or effusions noted on gross inspection. EXTREMITIES: No cyanosis, clubbing or edema. SKIN: Inspection of the skin reveals no rashes NEUROLOGIC: Alert and oriented x 3. Strength and sensation to light touch were grossly intact x 4. Course Course Course Narrative: I reviewed all of patient's investigations and there is no evidence of infection and anemia is chronically stable, there are no acute electrolyte abnormalities, urinalysis is negative for infection, and viral testing is negative. Chest x-ray is negative for acute pathology and patient has remained hemodynamically stable, cooperative and calm throughout his entire emergency room stay. There is no reason for patient to remain in the emergency room or be admitted. Reevaluation(s) Reevaluation #1: Still unable to reach the , med rec completed, patient placed in physician observation and a diet order placed. Time: 12:50 Reevaluation #2: Patient placed in physician observation because the patient needed more time for contact of . At the time observation was started the patient's vital signs were stable, patient is alert and oriented, neuro: Nonfocal, CV RRR, lungs clear Time: 12:50 Medical Decision Making Medical Decision Making MDM Narrative: 72-year-old male with presentation for evaluation of symptoms that are related to his underlying dementia. Patient has no focal deficits other than memory challenges. Differential Diagnosis Differential Diagnoses: The differential diagnosis associated with the presentation includes Will rule out infection, anemia, electrolyte imbalance. Lab Data MDM Lab Attestation statement: I reviewed the patient's lab results. Please see course Section for discussion Result Diagrams: 06/19/22 08:20 06/19/22 08:20 Labs: Lab Results 06/19/22 06/19/22 06/19/22 Range/Units 08:20 08:20 08:20 WBC 4.9 (4.8-10.8) X10*3/uL RBC 4.38 L (4.60-5.80) X10*6/uL Hgb 13.1 L (14.0-18.0) g/dl Hct 39.7 L (42.0-52.0) % MCV 90.6 (80.0-98.0) fL MCH 29.9 (27.0-33.0) pg MCHC 33.0 (31.0-36.0) g/dl RDW 12.6 (11.0-16.0) % Plt Count TNP MPV 11.1 (9.4-12.4) fL Immature Gran % (Auto) 0.2 (0.0-0.4) % Neut % (Auto) 57.1 (45-73) % Lymph % (Auto) 26.5 (20-40) % [place] % (Auto) 9.7 (2-11) % Eos % (Auto) 5.5 H (0-4) % Baso % (Auto) 1.0 (0-2) % Lymph # (Auto) 1.3 (1.2-4.9) X10*3/uL [place] # (Auto) 0.5 (0.1-1.2) X10*3/uL Eos # (Auto) 0.3 (0.0-0.4) X10*3/uL Baso # (Auto) 0.1 (0.0-0.2) X10*3/uL Abs Immat Gran (auto) 0.01 (0.00-0.03) X10*3/uL Absolute Neuts (auto) 2.8 (2.0-8.3) x10*3/uL Absolute Nucleated RBC 0.000 (0.0-0.012) X10*3/uL Nucleated RBC % (auto) 0.0 (0.0-0.2) /100WBC Sodium 141 (135-145) mmol/L Potassium 3.8 (3.3-5.1) mmol/L Chloride 104 (96-108) mmol/L Carbon Dioxide 31 H (22-29) mmol/L Anion Gap 10 L (12-20) BUN 28 H (9-16) mg/dL Creatinine 1.09 (0.5-1.4) mg/dL Estim Creat Clear Calc 64.4 Estimated GFR > 60 Random Glucose 97 (60-115) mg/dL Calcium 9.8 (8.4-10.2) mg/dL Total Bilirubin 0.9 (0.0-1.0) mg/dL AST 21 (5-37) U/L ALT 15 (0-40) U/L Alkaline Phosphatase 67 (39-117) U/L Total Protein 6.7 (6.5-8.0) g/dL Albumin 4.1 (3.5-5.0) g/dL Urine Color Urine Appearance Urine pH (5.0-9.0) Ur Specific Logan (1.005-1.025) Urine Protein (Neg-Trace) mg/dL Urine Glucose (UA) (Negative) mg/dL Urine Ketones (Negative) mg/dL Urine Blood (Negative) Urine Nitrite (Negative) Ur Leukocyte Esterase (Negative) COVID-19 (GUILLERMO) (Negative) COVID-19 Clin Com Influenza Type A (MACK) Negative (Negative) Influenza Type A (PCR) (Negative) Influenza Type B (MACK) Negative (Negative) Influenza Type B (PCR) (Negative) Influenza A & B Note See Note RSV RNA Qual (PCR) (Negative) SARS-CoV-2 RNA (RT-PCR) (Negative) 06/19/22 06/19/22 06/19/22 Range/Units 08:20 09:21 10:55 WBC (4.8-10.8) X10*3/uL RBC (4.60-5.80) X10*6/uL Hgb (14.0-18.0) g/dl Hct (42.0-52.0) % MCV (80.0-98.0) fL MCH (27.0-33.0) pg MCHC (31.0-36.0) g/dl RDW (11.0-16.0) % Plt Count MPV (9.4-12.4) fL Immature Gran % (Auto) (0.0-0.4) % Neut % (Auto) (45-73) % Lymph % (Auto) (20-40) % [place] % (Auto) (2-11) % Eos % (Auto) (0-4) % Baso % (Auto) (0-2) % Lymph # (Auto) (1.2-4.9) X10*3/uL [place] # (Auto) (0.1-1.2) X10*3/uL Eos # (Auto) (0.0-0.4) X10*3/uL Baso # (Auto) (0.0-0.2) X10*3/uL Abs Immat Gran (auto) (0.00-0.03) X10*3/uL Absolute Neuts (auto) (2.0-8.3) x10*3/uL Absolute Nucleated RBC (0.0-0.012) X10*3/uL Nucleated RBC % (auto) (0.0-0.2) /100WBC Sodium (135-145) mmol/L Potassium (3.3-5.1) mmol/L Chloride (96-108) mmol/L Carbon Dioxide (22-29) mmol/L Anion Gap (12-20) BUN (9-16) mg/dL Creatinine (0.5-1.4) mg/dL Estim Creat Clear Calc Estimated GFR Random Glucose (60-115) mg/dL Calcium (8.4-10.2) mg/dL Total Bilirubin (0.0-1.0) mg/dL AST (5-37) U/L ALT (0-40) U/L Alkaline Phosphatase (39-117) U/L Total Protein (6.5-8.0) g/dL Albumin (3.5-5.0) g/dL Urine Color Dark Yellow Urine Appearance Clear Urine pH 5.5 (5.0-9.0) Ur Specific Logan 1.025 (1.005-1.025) Urine Protein Trace (Neg-Trace) mg/dL Urine Glucose (UA) Negative (Negative) mg/dL Urine Ketones Trace (Negative) mg/dL Urine Blood Negative (Negative) Urine Nitrite Negative (Negative) Ur Leukocyte Esterase Negative (Negative) COVID-19 (GUILLERMO) Invalid (Negative) COVID-19 Clin Com See Note Influenza Type A (MACK) (Negative) Influenza Type A (PCR) NEGATIVE (Negative) Influenza Type B (MACK) (Negative) Influenza Type B (PCR) NEGATIVE (Negative) Influenza A & B Note RSV RNA Qual (PCR) NEGATIVE (Negative) SARS-CoV-2 RNA (RT-PCR) NEGATIVE (Negative) Independent Interpretation I performed an independent interpretation of an: EKG Interpretation: Sinus bradycardia, HR -59, no STEMI, OR/QRS/QTC are within normal limits Radiology Impression Radiologist Impression: My interpretation is in agreement with radiology's impression of the imaging study. Independent Historian Clinical information obtained from an independent historian. History obtained from or confirmed by: EMS External Record Review External record reviewed: Inpatient record, Outpatient record and Prior outpatient labs Chronic Conditions Patient?s care impacted by: Other Dementia Discharge Plan Discharge Clinical Impression: Dementia, Encounter for medical assessment Patient Disposition: Still a Patient Prescriptions: No Action haloperidol 0.5 mg Tablet 0.5 mg PO BID 30 Days Qty: 60 0RF donepezil 5 mg Tablet 5 mg PO BEDTIME 30 Days Qty: 30 0RF
[2022-06-19 08:44] LABS: IDNOW Serial# BCCEAD1C; Influenza A Negative (Negative); Influenza B2 Negative (Negative)
[2022-06-19 08:45] LABS: White Blood Count 4.9 X10*3/uL (4.8-10.8)
[2022-06-19 08:47] VITALS: BP 113/61; PULSE 59; RESP 18; TEMP 36.6; O2SAT 98
[2022-06-19 08:54] LABS: Alanine Aminotransferase 15 U/L (0-40); Albumin Level 4.1 g/dL (3.5-5.0); Alkaline Phosphatase 67 U/L (39-117); Anion Gap 10 (12-20); Aspartate Amino Transferase 21 U/L (5-37); Bilirubin Total 0.9 mg/dL (0.0-1.0); Blood Urea Nitrogen 28 mg/dL (9-16); Calcium 9.8 mg/dL (8.4-10.2); Carbon Dioxide 31 mmol/L (22-29); Chloride 104 mmol/L (96-108); Creatinine Clr Calc Pharmacy 64.4; Estimated Glomerular Filt Rate > 60; Glucose Random 97 mg/dL (60-115); Potassium 3.8 mmol/L (3.3-5.1); Sodium 141 mmol/L (135-145); Total Protein 6.7 g/dL (6.5-8.0)
[2022-06-19 08:58] LABS: COVID-19 Test Invalid (Negative); IDNOW Serial# 16C4AD1C
[2022-06-19 10:07] LABS: Influenza A PCR NEGATIVE (Negative); Influenza B PCR NEGATIVE (Negative); Resp Syncy Virus RNA Qual PCR NEGATIVE (Negative); SARS COV2 PCR INHOUSE NEGATIVE (Negative)
[2022-06-19 10:33] VITALS: BP 116/65; PULSE 57; RESP 18; TEMP 36.7; O2SAT 98
[2022-06-19 11:02] LABS: Appearance Urine Clear; Color Urine Dark Yellow; Glucose Urine UA Negative (Negative); Leukocyte Esterase Urine Negative (Negative); Nitrite Urine Negative (Negative); PH 5.5 (5.0-9.0); Specific Gravity - Urine 1.025 (1.005-1.025); Urine Blood Negative (Negative); Urine Ketones Trace mg/dL (Negative); Urine Protein Trace mg/dL (Neg-Trace)
--- NOTE | 2022-06-19 11:40 | PC.NURSE ---
attempted to call pts to come pick him up - left message
--- NOTE | 2022-06-19 11:52 | PC.NURSE ---
pt has three contacts in his cell phone. he does not know how to work his cell phone. of the three contacts only two have numbers put in.
--- NOTE | 2022-06-19 12:27 | PC.NURSE ---
friend, Reza Frazier lives in [place], unable to pick pt up. will assist in getting in touch with pts to come pick him up.
[2022-06-19 14:04] VITALS: BP 133/75; PULSE 62; RESP 16; TEMP 36.6; O2SAT 98
--- NOTE | 2022-06-19 15:36 | PC.NURSE ---
call from Elzbieta, she ordered an [employer] to come potato picker the pt. reports it will be here in 15 min. pt to be d/c to waiting room to await uber ride back to home with .
== END 2022-06-19 15:46 | disposition home or self-care (01) ==
PROVIDERS: Emergency Provider Student in an Organized Health Care Education/Training Program
DX: F03.90 Unspecified dementia, unspecified severity, without behavioral disturbance, psychotic disturbance, mood disturbance, and anxiety (principal); Z20.822 Contact with and (suspected) exposure to COVID-19; Z79.899 Other long term (current) drug therapy
CPT/HCPCS: 0241U; 71045; 80053; 81003; 85025; 87502; 87635; 93005; 99284

== ENCOUNTER 2022-07-03 16:47 | Emergency (ER) | payer MEDICARE, SELFPAY ==
--- NOTE | 2022-07-03 16:51 | ED_ITS ---
HPI - Altered Mental Status General Chief Complaint: Altered Mental Status Stated Complaint: AMS Time Seen by Provider: 07/03/22 16:50 Source: patient and EMS Mode of arrival: EMS Limitations: no limitations History of Present Illness HPI narrative: Patient with history of dementia with psychotic behavior with hallucinations supposed to be on Haldol 0.5 mg twice daily in Aricept 5 mg daily with his not taking it brought by EMS as he wants medication now no fever no chills no other symptoms patient was seen here on 06/19 for the same and labs were stable Related Data Home Medications Medication Instructions Recorded Confirmed multivitamin 1 tab PO QAM 06/19/22 06/19/22 Previous Rx's Medication Instructions Recorded donepezil 5 mg tablet (Aricept) 5 mg PO BEDTIME #30 tabs 07/03/22 haloperidol 0.5 mg tablet 0.5 mg PO BID #60 tabs 07/03/22 Allergies Allergy/AdvReac Type Severity Reaction Status Date / Time No Known Allergies Allergy Unverified 07/03/21 05:39 Review of Systems Review of Systems: Yes all other systems are reviewed and are negative [facility] Social History Social History Household Members: Significant Other Housing: Other Housing Other:: [facility] Do you presently have visiting nurse or other home services: No Alcohol intake: never Patient Tobacco Use Status: Never used Tobacco Smoked in Last 30 Days: No Use of substances other than those prescribed or required for medical reasons: No Advance Directives: No Advance Directives Information Provided: Yes service: No Sexual orientation: Straight/Heterosexual Physical Exam ED Vital Signs: Vital Signs - 24 hr 07/03/22 16:55 Temperature 98.5 F Pulse Rate 68 Respiratory Rate 18 Blood Pressure 107/60 Pulse Oximetry 98 Oxygen Delivery Method Room Air BMI result Body Mass Index 21.7 Appearance: Alert. Oriented X1-2. No acute distress. Eyes: PERRLA, No Nystagmus ENT: Pharynx normal. Oral Mucosa moist Neck: Normal inspection. Neck supple. CVS: Normal heart rate and rhythm. Pulses normal. Respiratory: No respiratory distress. Equal air entry bilateral, no wheezing/rales/rhonchi Abdomen: Soft and nontender. Bowel sounds are present, no mass palpable, no CVA tenderness Skin: Skin warm and dry. Normal skin color. Normal skin turgor. Extremities: No lower extremity edema. No calf tenderness Neuro: Oriented X1-2 No motor deficit. No sensory deficit.No cerebellar signs , cranial nerves II-XII intact Medications Administered Discontinued Medications Generic Name Dose Route Start Last Admin Trade Name Efren PRN Reason Stop Dose Admin Donepezil HCl 5 mg 07/03/22 21:12 07/03/22 21:18 Donepezil Hcl 5 Mg Tablet PO 07/03/22 21:13 5 mg ONCE ONE Administration Haloperidol 0.5 mg 07/03/22 21:12 07/03/22 21:18 Haloperidol 0.5 Mg Tablet PO 07/03/22 21:13 0.5 mg ONCE ONE Administration Medical Decision Making Medical Decision Making MDM Narrative: Patient's dementia discharge patient home on Aricept and Haldol as prescribed by psychiatrist when he was admitted last time Discharge Plan Discharge Clinical Impression: Dementia Patient Disposition: Home, Self-Care Instructions: Dementia (ED) Additional Instructions: Taking medication as prescribed And follow-up with your PCP Prescriptions: New donepezil [Aricept] 5 mg tablet 5 mg PO BEDTIME Qty: 30 2RF haloperidol 0.5 mg tablet 0.5 mg PO BID Qty: 60 2RF No Action multivitamin Tablet 1 tab PO QAM Interventions: ED Discharge Assessment Last Done: 07/03/22 21:21 Discharge Date/Time: 07/03/22 21:21
[2022-07-03 16:55] VITALS: BP 107/60; BP 128/78; PULSE 68; PULSE 77; RESP 18; TEMP 36.9; O2SAT 98; O2SAT 99; BMI 21.7
--- NOTE | 2022-07-03 17:57 | PC.NURSE ---
attempted to call for more information. no answer
--- NOTE | 2022-07-03 18:26 | PC.NURSE ---
pt reported I don't like to take my meds, I hallucinate and I like to see all the people
--- NOTE | 2022-07-03 18:30 | PC.NURSE ---
second attempt to make contact with family and no answer
--- NOTE | 2022-07-03 18:39 | PC.NURSE ---
asked pt if he has a cell phone to attempt to make contact with another person who can care for the pt. pt reports you know, I think I do have a cell phone, but Elzbieta took it from me she has been holding on to it for me .
--- NOTE | 2022-07-03 18:42 | PC.NURSE ---
Patient alert and oriented x 3. Patient ambulating independently. Pateint denied any pain. Will attempt to call again. Nicolette MCKINNEY called the first time.
--- NOTE | 2022-07-03 20:09 | PC.NURSE ---
Called [place] police department to do a Wellness check on because she is not responding to our calls. Will call and see if she is ok or something is wrong with her phone.
--- NOTE | 2022-07-03 21:06 | PC.NURSE ---
Called [facility] police, who confirmed is at home, Notified FAYE Fuller.
[2022-07-03] MEDS: HaloperidoL 0.5 MG TABLET PO (21:18)
[2022-07-03] MEDS: Donepezil HCl 5 MG TABLET PO (21:18)
--- NOTE | 2022-07-03 21:19 | PC.NURSE ---
Pt medicated by
== END 2022-07-03 21:21 | disposition home or self-care (01) ==
PROVIDERS: Emergency Provider Internal Medicine
DX: F03.918 Unspecified dementia, unspecified severity, with other behavioral disturbance (principal); R41.82 Altered mental status, unspecified; Z79.899 Other long term (current) drug therapy
CPT/HCPCS: 99283; 99284; 99285

== ENCOUNTER 2022-07-04 11:28 | Emergency (ER) | payer MEDICARE, SELFPAY ==
[2022-07-04 11:45] VITALS: BP 123/73; BP 134/80; PULSE 70; PULSE 72; RESP 16; TEMP 36.7; O2SAT 96; O2SAT 98; BMI 21.8
[2022-07-04 13:02] LABS: Eosinophils Absolute Auto 0.2 X10*3/uL (0.0-0.4); Mean Corpuscular HGB Conc 33.6 g/dl (31.0-36.0); PLT CLUMP 1; Red Blood Count 4.52 X10*6/uL (4.60-5.80); Red Cell Distribution Width 12.4 % (11.0-16.0); SCAN SMEAR FLAG 1
[2022-07-04 13:04] LABS: Basophils Percent Auto 0.5 % (0-2); Eosinophils Percent Auto 2.1 % (0-4); Hematocrit 40.5 % (42.0-52.0); Hemoglobin 13.6 g/dl (14.0-18.0); Imm Gran Abs Auto 0.02 X10*3/uL (0.00-0.03); Imm Gran Pct Auto 0.3 % (0.0-0.4); Lymphocytes Absolute Auto 1.4 X10*3/uL (1.2-4.9); Lymphocytes Percent Auto 19.5 % (20-40); MANUAL DIFF FLAG SCAN; Mean Corpuscular Hemoglobin 30.1 pg (27.0-33.0); Mean Corpuscular Volume 89.6 fL (80.0-98.0); Monocytes Absolute Auto 0.7 X10*3/uL (0.1-1.2); Monocytes Percent Auto 9.9 % (2-11); Neutrophils Absolute Auto 4.9 x10*3/uL (2.0-8.3); Neutrophils Percent Auto 67.7 % (45-73)
[2022-07-04 13:12] LABS: White Blood Count 7.3 X10*3/uL (4.8-10.8)
[2022-07-04 13:13] LABS: Ammonia 25 umol/L (13-55)
[2022-07-04 13:24] LABS: SLIDE REVIEW VERIFIED
[2022-07-04 13:36] LABS: Alanine Aminotransferase 12 U/L (0-40); Albumin Level 4.4 g/dL (3.5-5.0); Alkaline Phosphatase 70 U/L (39-117); Anion Gap 12 (12-20); Aspartate Amino Transferase 20 U/L (5-37); Blood Urea Nitrogen 27 mg/dL (9-16); Calcium 10.1 mg/dL (8.4-10.2); Carbon Dioxide 29 mmol/L (22-29); Chloride 104 mmol/L (96-108); Creatinine Clr Calc Pharmacy 71.3; Estimated Glomerular Filt Rate > 60; Ethanol < 10 mg/dL; Glucose Random 101 mg/dL (60-115); Potassium 4.2 mmol/L (3.3-5.1); Sodium 141 mmol/L (135-145); Total Protein 7.2 g/dL (6.5-8.0)
[2022-07-04 13:41] LABS: Amphetamine Screen Urine Not Detected (Not Detect); Barbiturates, Urine Not Detected (Not Detect); Benzodiazepines Screen Urine Not Detected (Not Detect); Cannabinoid Screen Urine Not Detected (Not Detect); Cocaine Screen Urine Not Detected (Not Detect); Fentanyl, urine Not Detected (Not Detect); Opiate Screen Urine Not Detected (Not Detect); Phencyclidine Screen Urine Not Detected (Not Detect)
[2022-07-04 13:46] LABS: Appearance Urine Clear; Color Urine Dark Yellow; Glucose Urine UA Negative (Negative); Leukocyte Esterase Urine Negative (Negative); Nitrite Urine Negative (Negative); Specific Gravity - Urine 1.025 (1.005-1.025); UMIC TRIGGER UACC YES; Urine Blood Negative (Negative); Urine Ketones Trace mg/dL (Negative); Urine Protein 30 (1+) mg/dL (Neg-Trace)
[2022-07-04 13:56] LABS: Bacteria Urine None Seen (None Seen); Granular Casts Urine Present; RBC Urine 0-2 /HPF (0-2); WBC Urine 0-5 /HPF (0-5)
[2022-07-04 15:49] VITALS: BP 109/62; PULSE 56; RESP 18; TEMP 36.7; O2SAT 98
--- NOTE | 2022-07-04 19:21 | PHA.MEDREC ---
Pharmacy Consult ? Medication Reconciliation Pharmacy has completed the medication reconciliation. Spoke with patient in the ED. Patient states he is taking 3 medications. two of the medications were prescribed by the ER doctor last night and he picked them up at [facility]. Patient states he did not take any medication before this .
--- NOTE | 2022-07-04 19:25 | MHC.CM.ED ---
Addendum entered by Helen Harris 07/04/22 19:36: Pt tells CM he needs medications, but is hesitant to take them at home. CM explained that there are concerns regarding CM inability to reach Elzbieta. CM expressed concerns regarding patient safety at home. Pt is know to wander and walked several blocks from his home to the police station to request transport to the hospital. Pt is a very poor historian, especially with short term memory. Pt states both he and Elzbieta do not drive. Pt denies F/U with PCP. Appointment made at discharge in December (Dr. Ohara 01/05/22 @ 10am.) Pt denies taking any medications at home, even though medications were prescribed at discharge. for Aricept and Haldol. Pt had referral at discharge to [facility]. Per records, [facility] made phone calls for intake, but calls went unanswered. Pt tells CM he completed his own ADL's and Elzbieta cooks and cleans. Pt tells CM he has a son, Umer, but no contact information and a friend, Reza Grijalva ([phone]). Pt allowed CM to review his phone contacts. Only contacts listed were Elzbieta and Reza Grijalva. police were contacted for assistance at 1900. CM has concerns regarding safe discharge planning for this patient, as his memory and cognition are severely decreased and CM inability to contact Elzbieta Waggoner to assess living situation. CM spoke with Marcio TAM, who is in agreement that CM file with Elder protective services. CM also requested Psych evaluation for capacity and possible guardianship. CM unable to verify if patient and Elzbieta are legally and any contact information on family. Awaiting return call from Elzbieta and psychiatry consult. Original Note: CM received consult after CARE team assessment that patient does not meet inpatient criteria. Pt has been medically cleared. Pt had a MOCA scoring in December of 7-severe cognitive impairment. Pt presented to the police department today with dementia and request to come to hospital. Pt has hx hallucinations. CM attempted to call S.O. Elzbieta Waggoner ([phone]). Phone number is correct. Went straight to [facility]. Message left with request to call CM. CARE team also attempted to reach Elzbieta without success. Marcio TAM also attempted to reach Elzbieta, without success. CM met with pt and with patients permission, used his phone to call Elzbieta without success. Pt states Elzbieta often will not answer the phone. CM called the police department ([phone]) and requested a well check and request for Elzbieta Waggoner to call CM. Of note, CM needed to call police for well check on Elzbieta and to request return telephone call regarding patients care and discharge concerns when patient was hospitalized in December. Pt is well kept, pleasant and cooperative. Pt tries very hard to answer CM questions, but has difficulty finding words. Pt tells CM that he has problems with his mind, and has a diagnosis, but cannot remember. When CM reminded patient that he has memory issues and some dementia, pt agreed.
--- NOTE | 2022-07-04 19:28 | ED.GENADULT ---
HPI - General Adult General Chief complaint: Psychiatric Symptoms Stated complaint: Dementia Time Seen by Provider: 07/04/22 12:19 Source: patient Mode of arrival: ambulatory Limitations: no limitations History of Present Illness HPI narrative: 72-year-old male with history of dementia presents to the ED for worsening dementia. Patient was seen in the ER yesterday and discharged. Her friend/ sent patient to the hospital. Patient admits to having dementia and thinks he should be evaluated. Patient states having hallucinations for the past 2 years since diagnosed with dementia. Patient denies any physical complaints Related Data Home Medications Medication Instructions Recorded Confirmed multivitamin 1 tab PO DAILY 06/19/22 07/04/22 Previous Rx's Medication Instructions Recorded donepezil 5 mg tablet (Aricept) 5 mg PO BEDTIME #30 tabs 07/03/22 haloperidol 0.5 mg tablet 0.5 mg PO BID #60 tabs 07/03/22 donepezil 5 mg tablet (Aricept) 5 mg PO DAILY #30 tabs 07/06/22 haloperidol 0.5 mg tablet 0.5 mg PO BID #60 tabs 07/06/22 Allergies Allergy/AdvReac Type Severity Reaction Status Date / Time No Known Allergies Allergy Unverified 07/03/21 05:39 Review of Systems Review of Systems: Dementia Yes all other systems are reviewed and are negative PMFSH Social History Social History Household Members: Significant Other Housing: Other Housing Other:: [facility] Do you presently have visiting nurse or other home services: No Alcohol intake: former Patient Tobacco Use Status: Never used Tobacco service: No Sexual orientation: Straight/Heterosexual Physical Exam ED Vital Signs: Vital Signs - 24 hr 07/04/22 11:45 07/04/22 15:49 07/04/22 19:53 Temperature 98.1 F 98.1 F 98.0 F Pulse Rate 70 56 62 Respiratory Rate 16 18 16 Blood Pressure 123/73 109/62 110/58 L Pulse Oximetry 98 98 98 Oxygen Delivery Method Room Air Room Air Room Air 07/05/22 00:36 07/05/22 02:06 07/05/22 05:11 Temperature 98.3 F Pulse Rate 68 67 Respiratory Rate 17 16 16 Blood Pressure 118/64 Pulse Oximetry 98 98 Oxygen Delivery Method Room Air Room Air 07/05/22 07:23 Temperature 98.2 F Pulse Rate 61 Respiratory Rate 12 Blood Pressure 107/62 Pulse Oximetry 98 Oxygen Delivery Method Room Air BMI result Body Mass Index 21.8 Const General: cooperative, healthy appearing, comfortable, no acute distress, well developed, alert, awake and Physically active Orientation/consciousness: oriented to person, oriented to place, oriented to time and patient oriented x3 HENNV Head: Yes normal to inspection, Yes No palpable skull fracture present, Yes normocephalic, Yes atraumatic and No abrasion Eyes General: appearance normal, both eyes and all related structures Neck Neck: Yes normal visual inspection, Yes full ROM, Yes no lymphadenopathy, Yes no meningeal signs, Yes trachea midline, Yes supple, No anterior neck swelling and No tender Chest Chest palpation & inspection: normal inspection of the chest and normal palpation of entire chest wall Resp Effort & Inspection: normal respiratory effort and able to speak in complete sentences Auscultation: clear to auscultation bilaterally Cardio Jugular venous distension: no JVD Heart sounds: S1 normal heart sound present and S2 normal heart sound present GI Inspection: Yes normal to inspection and No abdominal wall ecchymosis Palpation (GI): Soft to palpation, not firm, nontender, no guarding and not rigid General: No CVA tenderness and Yes no CVA tenderness Back/Spine/Pelvis Back: no CVA tenderness, No CVA tenderness and No back tenderness Skin General skin exam: no rashes or lesions noted and elasticity normal Neuro Other: Patient easily redirected. General: oriented to person, oriented to place, oriented to time, patient oriented x3, gait normal, tone normal, moves all extremities, Normal light touch and pain sensation, no meningeal signs, no focal motor deficits and CN's II-XI intact bilaterally Extrem General: Yes normal to inspection and Yes full ROM Psych Other: baseline dementia. Appearance: grossly normal, well kempt and not disheveled Course Course Course Narrative: Labs ordered. Care team consult placed. Alcohol to and she could not be reached Reevaluation(s) Reevaluation #1: Care team Lindy came and evaluated patient. She states patient is not safe to go home. She states patient may need to be case management for placement. Labs are baseline. Care team Karolyn recommended psych consult for psych capacity and med adjustment. She states also patient is not safe to go home and at home is not responding to multiple phone calls. She will file with [facility]. Psych consult placed. Time: 19:38 Medications Administered Discontinued Medications Generic Name Dose Route Start Last Admin Trade Name Efren PRN Reason Stop Dose Admin Donepezil HCl 5 mg 07/05/22 21:00 07/05/22 21:24 Donepezil Hcl 5 Mg Tablet PO 5 mg BEDTIME NIVIA Administration Haloperidol 0.5 mg 07/05/22 21:00 07/06/22 09:46 Haloperidol 0.5 Mg Tablet PO 0.5 mg BID NIVIA Administration Multivitamins/Vitamin C 1 tab 07/06/22 09:00 07/06/22 09:46 Multivitamin Tablet PO 1 tab DAILY NVIIA Administration Medical Decision Making Medical Decision Making MDM Narrative: Referred to course/evaluate Lab Data 07/04/22 12:56 07/04/22 12:56 Labs: Lab Results 07/04/22 07/04/22 07/04/22 Range/Units 12:56 12:56 12:56 WBC 7.3 (4.8-10.8) X10*3/uL RBC 4.52 L (4.60-5.80) X10*6/uL Hgb 13.6 L (14.0-18.0) g/dl Hct 40.5 L (42.0-52.0) % MCV 89.6 (80.0-98.0) fL MCH 30.1 (27.0-33.0) pg MCHC 33.6 (31.0-36.0) g/dl RDW 12.4 (11.0-16.0) % Plt Count TNP MPV Not Reportable Immature Gran % (Auto) 0.3 (0.0-0.4) % Neut % (Auto) 67.7 (45-73) % Lymph % (Auto) 19.5 L (20-40) % [place] % (Auto) 9.9 (2-11) % Eos % (Auto) 2.1 (0-4) % Baso % (Auto) 0.5 (0-2) % Lymph # (Auto) 1.4 (1.2-4.9) X10*3/uL [place] # (Auto) 0.7 (0.1-1.2) X10*3/uL Eos # (Auto) 0.2 (0.0-0.4) X10*3/uL Baso # (Auto) 0.0 (0.0-0.2) X10*3/uL Abs Immat Gran (auto) 0.02 (0.00-0.03) X10*3/uL Absolute Neuts (auto) 4.9 (2.0-8.3) x10*3/uL Absolute Nucleated RBC 0.000 (0.0-0.012) X10*3/uL Nucleated RBC % (auto) 0.0 (0.0-0.2) /100WBC Smear Tech's Comments VERIFIED Sodium 141 (135-145) mmol/L Potassium 4.2 (3.3-5.1) mmol/L Chloride 104 (96-108) mmol/L Carbon Dioxide 29 (22-29) mmol/L Anion Gap 12 (12-20) BUN 27 H (9-16) mg/dL Creatinine 0.99 (0.5-1.4) mg/dL Estim Creat Clear Calc 71.3 Estimated GFR > 60 Random Glucose 101 (60-115) mg/dL Calcium 10.1 (8.4-10.2) mg/dL Total Bilirubin 1.0 (0.0-1.0) mg/dL AST 20 (5-37) U/L ALT 12 (0-40) U/L Alkaline Phosphatase 70 (39-117) U/L Ammonia 25 (13-55) umol/L Total Protein 7.2 (6.5-8.0) g/dL Albumin 4.4 (3.5-5.0) g/dL Urine Color Urine Appearance Urine pH (5.0-9.0) Ur Specific [place] (1.005-1.025) Urine Protein (Neg-Trace) mg/dL Urine Glucose (UA) (Negative) mg/dL Urine Ketones (Negative) mg/dL Urine Blood (Negative) Urine Nitrite (Negative) Ur Leukocyte Esterase (Negative) Urine RBC (0-2) /HPF Urine WBC (0-5) /HPF Ur Squamous Epith Cells (0-2) /HPF Urine Bacteria (None Seen) Hyaline Casts (0-2) /LPF Granular Casts Urine Opiates Screen (Not Detect) Urine Fentanyl Screen (Not Detect) Ur Barbiturates Screen (Not Detect) Ur Phencyclidine Scrn (Not Detect) Ur Amphetamines Screen (Not Detect) U Benzodiazepines Scrn (Not Detect) Urine Cocaine Screen (Not Detect) U Marijuana (THC) Screen (Not Detect) Ethyl Alcohol < 10 mg/dL Influenza Type A (PCR) (Negative) Influenza Type B (PCR) (Negative) RSV RNA Qual (PCR) (Negative) SARS-CoV-2 RNA (RT-PCR) (Negative) 07/04/22 07/04/22 07/04/22 Range/Units 13:14 13:14 20:40 WBC (4.8-10.8) X10*3/uL RBC (4.60-5.80) X10*6/uL Hgb (14.0-18.0) g/dl Hct (42.0-52.0) % MCV (80.0-98.0) fL MCH (27.0-33.0) pg MCHC (31.0-36.0) g/dl RDW (11.0-16.0) % Plt Count MPV Immature Gran % (Auto) (0.0-0.4) % Neut % (Auto) (45-73) % Lymph % (Auto) (20-40) % [place] % (Auto) (2-11) % Eos % (Auto) (0-4) % Baso % (Auto) (0-2) % Lymph # (Auto) (1.2-4.9) X10*3/uL [place] # (Auto) (0.1-1.2) X10*3/uL Eos # (Auto) (0.0-0.4) X10*3/uL Baso # (Auto) (0.0-0.2) X10*3/uL Abs Immat Gran (auto) (0.00-0.03) X10*3/uL Absolute Neuts (auto) (2.0-8.3) x10*3/uL Absolute Nucleated RBC (0.0-0.012) X10*3/uL Nucleated RBC % (auto) (0.0-0.2) /100WBC Smear Tech's Comments Sodium (135-145) mmol/L Potassium (3.3-5.1) mmol/L Chloride (96-108) mmol/L Carbon Dioxide (22-29) mmol/L Anion Gap (12-20) BUN (9-16) mg/dL Creatinine (0.5-1.4) mg/dL Estim Creat Clear Calc Estimated GFR Random Glucose (60-115) mg/dL Calcium (8.4-10.2) mg/dL Total Bilirubin (0.0-1.0) mg/dL AST (5-37) U/L ALT (0-40) U/L Alkaline Phosphatase (39-117) U/L Ammonia (13-55) umol/L Total Protein (6.5-8.0) g/dL Albumin (3.5-5.0) g/dL Urine Color Dark Yellow Urine Appearance Clear Urine pH 5.0 (5.0-9.0) Ur Specific [place] 1.025 (1.005-1.025) Urine Protein 30 (1+) H (Neg-Trace) mg/dL Urine Glucose (UA) Negative (Negative) mg/dL Urine Ketones Trace (Negative) mg/dL Urine Blood Negative (Negative) Urine Nitrite Negative (Negative) Ur Leukocyte Esterase Negative (Negative) Urine RBC 0-2 (0-2) /HPF Urine WBC 0-5 (0-5) /HPF Ur Squamous Epith Cells 3-5 (0-2) /HPF Urine Bacteria None Seen (None Seen) Hyaline Casts 11-20 (0-2) /LPF Granular Casts Present Urine Opiates Screen Not Detected (Not Detect) Urine Fentanyl Screen Not Detected (Not Detect) Ur Barbiturates Screen Not Detected (Not Detect) Ur Phencyclidine Scrn Not Detected (Not Detect) Ur Amphetamines Screen Not Detected (Not Detect) U Benzodiazepines Scrn Not Detected (Not Detect) Urine Cocaine Screen Not Detected (Not Detect) U Marijuana (THC) Screen Not Detected (Not Detect) Ethyl Alcohol mg/dL Influenza Type A (PCR) NEGATIVE (Negative) Influenza Type B (PCR) NEGATIVE (Negative) RSV RNA Qual (PCR) NEGATIVE (Negative) SARS-CoV-2 RNA (RT-PCR) NEGATIVE (Negative) Discharge Plan Discharge Clinical Impression: Dementia Patient Disposition: Home, Self-Care Instructions: Dementia (ED) Additional Instructions: Follow up with your primary care provider. Return to the emergency department immediately if your symptoms worsen or if you develop any dizziness, shortness of breath, difficulty breathing, chest pain, blurry vision, loss of vision, nausea, vomiting, abdominal pain, fever, chills, back pain, or any other complaints. Prescriptions: New donepezil [Aricept] 5 mg tablet 5 mg PO DAILY Qty: 30 0RF haloperidol 0.5 mg tablet 0.5 mg PO BID Qty: 60 0RF No Action multivitamin Tablet 1 tab PO DAILY donepezil [Aricept] 5 mg tablet 5 mg PO BEDTIME Qty: 30 2RF haloperidol 0.5 mg tablet 0.5 mg PO BID Qty: 60 2RF Interventions: [place]-Suicide Risk Severity Scale Last Done: 07/05/22 23:00 ED Discharge Assessment Last Done: 07/06/22 10:39 Discharge Date/Time: 07/06/22 10:40 Print Language: Japanese
[2022-07-04 19:53] VITALS: BP 110/58; PULSE 62; RESP 16; TEMP 36.7; O2SAT 98
--- NOTE | 2022-07-04 19:58 | PC.NURSE ---
Patient is alert to self and place., calm and cooperative. Patient admits having dementia, patient reports he recently started new medication for it. Patient denies HI/SI. Patient admits having visual and auditory hallucinations. Patient reports he realizes that hallucinations are not normal. Patient ambulates with a steady gait. Patient oriented to room, call horton within patient's reach.
[2022-07-04 21:27] LABS: Influenza A PCR NEGATIVE (Negative); Influenza B PCR NEGATIVE (Negative); Resp Syncy Virus RNA Qual PCR NEGATIVE (Negative); SARS COV2 PCR INHOUSE NEGATIVE (Negative)
--- NOTE | 2022-07-04 21:36 | MHC.CM.ED ---
CM filed Elder at Risk with SS at 2130. Concerns regarding safe discharge and inability to contact S.O. to discuss care plans. Pending psych consult for capacity. ? need for guardianship. Still have not received return telephone call from S.O. Elzbieta Waggoner. Unsure of marital status, as patient tells CM they have been living together for many years and got a month ago at [facility]. Cannot verify at this time. Pt has son Umer Yañez, but no contact information available, pt cannot remember and not listed in patient contact information in his telephone.
[2022-07-05] VITALS (9 sets, daily range): BP systolic 107–173; BP diastolic 62–86; PULSE 58–77; RESP 12–17; TEMP 36.6–36.8; O2SAT 96–100
--- NOTE | 2022-07-05 07:34 | PC.NURSE ---
patient alert to self and situation , able to tell me his name and that he is in a hospital . pearrla , wearing glasses . heart rate regular at 61 beats per minutes . breathing even and unlabored . skin pink warm and dry . abdomen soft non tender . positive bowel sounds throughout . patient reports that he came into the hospital because of both auditory hallucinations and visual hallucinations with increased memory issues , denies any this AM . Patient is not SI or HI . He is calm and cooperative easily redirected. Ambulates by self to bathroom . patient is aware of plan of care .
--- NOTE | 2022-07-05 09:28 | MHC.CM.ED ---
Patient remains in ER. Psych consult still pending. Patient's PCP is at [facility]. T/W contacted [facility] HIM. No HCP on file there. Continue to monitor for d/c needs.
--- NOTE | 2022-07-05 15:51 | MHC.CM.ED ---
Received telephone call from Marissa at [facility]. She can be reached via telephone at [phone], ext. [phone]. Clinical information provided via telephone. Waiting for psych consult to verify if patient has capacity to make his own decisions. Unable to determine self discharge plan at this time. Continue to monitor for d/c needs.
--- NOTE | 2022-07-05 16:13 | PM.PSYCN ---
History of Present Illness Date of Service: 07/05/2022 Chief Complaint: Dementia Reason for Consult: capacity Requesting physician: Deepti Gurrola Discussed with referring provider: Yes Sources of Information: patient interviewed, chart reviewed and crisis/core team assessment reviewed HPI Narrative: Mr. Yañez is a 72 year-old male with hx of Dementia, most likely Lewy Body dementia or mixed etiology, but less likely of Alzhemeir's type with his pattern of cognitive impairments (mainly fairly intact orientation, with severe impairment in executive function, attention, recall, language fluency and repetition, visual hallucination fairly early in course of illness with some awareness that they are not there and most of them being seeing animals). Pt is known to this telegraphic typewriter mechanic through previous assessment back in December 2021, when pt was brought in by police after he presented to police station reporting visual hallucinations. At the time, it was of great concern current living situation as his partner Kathy with whom this telegraphic typewriter mechanic spoke with back in 12/24/2021 was unaware that pt had elope the home and had gone to police department and then transfer to the hospital. Back then, there was many signs that this was not the first time that pt had been wondered, most likely without the awareness of his partner Kathy as his arms and faced seemed very tanned and police department reported seeing him often. This time around, similar situation happened. Per pt, he walked to police station again asking them to bring him to hospital as he was having hallucination and not feeling right. Mr. Yañez was discharged from back in 12/2021 after evaluation of cognitive impairments and treatment of dementia related visual hallucinations. He was discharge on two medications: aricept and low dose haldol. An appointment to follow up with medical care was setting up. This appointment was supposed to be completed via telehealth but it appears according to [facility] Records that it was a no show. Pt reports he does not think he has taken any medications since discharge and pharmacy confirms no medications were picked up. Per notes during the time pt was admitted on the [facility] unit, SALMA [place] had difficult time reaching Kathy. She did come to the unit once but declined to wear a mask and left abruptly. At time of discharged from r[facility] unit, Salma file report for Elder protection given suspicion of neglect. During this ED visit, several attempts have been made to reach his partner Kathy to no avail. CM even sent police for wellness check to pt's address with no luck. This telegraphic typewriter mechanic called on 07/05/22 left with call back number. No return phone call to either the ED team or myself. SW in ED again has filed to elder Protection services for neglect at this point. Pt seen today. He is sitting in chair in ED. He is very pleasant. Pt reports he thought he was seeing things but when he turned around did not see them again. He reports he went to police station. He denies AH/VH. He denies SI/HI. He is not sure why he is still here in the hospital. He is not sure for how long he has been here. This telegraphic typewriter mechanic explained that we had not been able to reach his partner and given his severe cognitive impairment, pt not safe to be on his own or care for his own. Past Psychiatric History: -Inpatient: S1 12/2021 -Denies hx of previous psych treatment Past medication trials: haldol, aricept. [facility] Social History: -Pt reports he lives with his significant other, Kathy. He does report getting more confused at night. Pt reports he had visual hallucinations 3 days ago, but not today. He is clear in that what he sees other people can't see it. He denies symptoms of depression, anxiety. He denies SI/HI. Trauma History: -Unknown Diagnostics Vital Signs (24Hr): Vital Signs - 24 hr 07/04/22 19:53 07/05/22 00:36 07/05/22 02:06 Temperature 98.0 F Pulse Rate 62 68 Respiratory Rate 16 17 16 Blood Pressure 110/58 L Pulse Oximetry 98 98 Oxygen Delivery Method Room Air Room Air 07/05/22 05:11 07/05/22 07:23 07/05/22 10:02 Temperature 98.3 F 98.2 F Pulse Rate 67 61 58 Respiratory Rate 16 12 16 Blood Pressure 118/64 107/62 118/67 Pulse Oximetry 98 98 98 Oxygen Delivery Method Room Air Room Air Room Air 07/05/22 12:28 07/05/22 13:39 07/05/22 15:22 Temperature 97.8 F Pulse Rate 71 74 72 Respiratory Rate 16 16 16 Blood Pressure 173/76 H 134/75 111/64 Pulse Oximetry 98 96 100 Oxygen Delivery Method Room Air Room Air Room Air BMI result Body Mass Index 21.8 Labs 07/04/22 12:56 07/04/22 12:56 Labs: Laboratory Results - last 48 hr 07/04/22 07/04/22 07/04/22 12:56 12:56 12:56 WBC 7.3 RBC 4.52 L Hgb 13.6 L Hct 40.5 L MCV 89.6 MCH 30.1 MCHC 33.6 RDW 12.4 Plt Count TNP MPV Not Reportable Immature Gran % (Auto) 0.3 Neut % (Auto) 67.7 Lymph % (Auto) 19.5 L [place] % (Auto) 9.9 Eos % (Auto) 2.1 Baso % (Auto) 0.5 Lymph # (Auto) 1.4 [place] # (Auto) 0.7 Eos # (Auto) 0.2 Baso # (Auto) 0.0 Abs Immat Gran (auto) 0.02 Absolute Neuts (auto) 4.9 Absolute Nucleated RBC 0.000 Nucleated RBC % (auto) 0.0 Smear Tech's Comments VERIFIED Sodium 141 Potassium 4.2 Chloride 104 Carbon Dioxide 29 Anion Gap 12 BUN 27 H Creatinine 0.99 Estim Creat Clear Calc 71.3 Estimated GFR > 60 Random Glucose 101 Calcium 10.1 Total Bilirubin 1.0 AST 20 ALT 12 Alkaline Phosphatase 70 Ammonia 25 Total Protein 7.2 Albumin 4.4 Urine Color Urine Appearance Urine pH Ur Specific [place] Urine Protein Urine Glucose (UA) Urine Ketones Urine Blood Urine Nitrite Ur Leukocyte Esterase Urine RBC Urine WBC Ur Squamous Epith Cells Urine Bacteria Hyaline Casts Granular Casts Urine Opiates Screen Urine Fentanyl Screen Ur Barbiturates Screen Ur Phencyclidine Scrn Ur Amphetamines Screen U Benzodiazepines Scrn Urine Cocaine Screen U Marijuana (THC) Screen Ethyl Alcohol < 10 Influenza Type A (PCR) Influenza Type B (PCR) RSV RNA Qual (PCR) SARS-CoV-2 RNA (RT-PCR) 07/04/22 07/04/22 07/04/22 13:14 13:14 20:40 WBC RBC Hgb Hct MCV MCH MCHC RDW Plt Count MPV Immature Gran % (Auto) Neut % (Auto) Lymph % (Auto) [place] % (Auto) Eos % (Auto) Baso % (Auto) Lymph # (Auto) [place] # (Auto) Eos # (Auto) Baso # (Auto) Abs Immat Gran (auto) Absolute Neuts (auto) Absolute Nucleated RBC Nucleated RBC % (auto) Smear Tech's Comments Sodium Potassium Chloride Carbon Dioxide Anion Gap BUN Creatinine Estim Creat Clear Calc Estimated GFR Random Glucose Calcium Total Bilirubin AST ALT Alkaline Phosphatase Ammonia Total Protein Albumin Urine Color Dark Yellow Urine Appearance Clear Urine pH 5.0 Ur Specific [place] 1.025 Urine Protein 30 (1+) H Urine Glucose (UA) Negative Urine Ketones Trace Urine Blood Negative Urine Nitrite Negative Ur Leukocyte Esterase Negative Urine RBC 0-2 Urine WBC 0-5 Ur Squamous Epith Cells 3-5 Urine Bacteria None Seen Hyaline Casts 11-20 Granular Casts Present Urine Opiates Screen Not Detected Urine Fentanyl Screen Not Detected Ur Barbiturates Screen Not Detected Ur Phencyclidine Scrn Not Detected Ur Amphetamines Screen Not Detected U Benzodiazepines Scrn Not Detected Urine Cocaine Screen Not Detected U Marijuana (THC) Screen Not Detected Ethyl Alcohol Influenza Type A (PCR) NEGATIVE Influenza Type B (PCR) NEGATIVE RSV RNA Qual (PCR) NEGATIVE SARS-CoV-2 RNA (RT-PCR) NEGATIVE Mental Status Exam Mental Status Exam Narrative: Appearance:wearing hospital gown, fair hygiene in NAD Behavior:cooperative, friendly psychomotor: no agitation or retardation noted Speech:clear, difficulty finding words, spontaneous, repetitive, Thought process:repetitive Thought content:no significant substance to content other than he is concern about his memory and had hallucinations. Mood: okay Affect: congruent SI:denies HI:denies VH/AH:none at the moment Delusions: no overt delusional content reported Insight/judgment:impaired x 2 due to severe cognitive impairments. Memory/cog: alert, oriented to month, day, date. executive function significantly impaired. Lsat MOCA 01/22 back in December 2021. Medications Medications Current Medications Donepezil HCl (Donepezil Hcl 5 Mg Tablet) 5 mg PO BEDTIME [facility] Haloperidol (Haloperidol 0.5 Mg Tablet) 0.5 mg PO BID [facility] Multivitamins/Vitamin C (Multivitamin Tablet) 1 tab PO DAILY [facility] Pharmacy Consult (Consult Rx Perform Med Rec) 1 each MISCELLANE ONCE PRN PRN Reason: Consult order Allergies Allergies Allergy/AdvReac Type Severity Reaction Status Date / Time No Known Allergies Allergy Unverified 07/03/21 05:39 Assessment & Plan Assessment & Plan (1) Major neurocognitive disorder: Status: Acute Code(s): F03.90 - Unspecified dementia, unspecified severity, without behavioral disturbance, psychotic disturbance, mood disturbance, and anxiety Plan Mr. Yañez is a 72 year-old male with hx of Dementia- most likely LBD or mixed etiology (note head CT shows atrophy and microvascular changes) who was brought in by police as he walked to police station reporting VH. There has been growing concern as to his partner's Kathy ability to safely care for Mr. Yañez. Back in December 2021 this telegraphic typewriter mechanic spoke with her as he had eloped from the home without her awareness and signs that he is wondering on the streets without her knowledge. Even then ED staff and providers from [facility] unit, had significant difficulty reaching her. This time around, again pt walked to police station and no contact with Kathy has been possible for 2 days despite multiple calls, police was sent to her home. Pt has severe cognitive impairments that are not expected to improved. Such cognitive impairments affect his ability to safely care for himself. He lacks capacity to make medical decisions in that he is not able to show understanding of such conditions, appreciation or risk versus benefits. PLAN 1. currently no acute need for [facility] psych admission 2. pt lacks capacity to make medical decisions. Moreover, pt unable to care for himself and need significant observation and care to prevent aimless wondering in very cold weather, where pt does not have insight as to potential danger of aimlessly ambulating. Total time managing care of this patient today _30___ minutes.
--- NOTE | 2022-07-05 16:52 | MHC.CM.ED ---
Per [employer]SEATING MACHINE SET UP OPERATOR, pt does not have capacity to make medical decisions. Concerns remain regarding safe discharge. Elzbieta Waggoner has not returned call to CM or to [employer]SE[employer]INE SET UP OPERATOR. Matter escalated to Marissa Palacios, Director . Will address in am and start process for guardianship. CM was able to verify that patient did not attend virtual appointment made for him at discharge in December with Dr. Ohara. Awaiting formal consult note from psych. Pt to remain in ED pending safe d/c plan and completion of guardianship process. No HCP on file. No contact information on son, Umer Yañez. Deepti TAM aware. RN aware. CM to follow for discharge planning.
--- NOTE | 2022-07-05 20:25 | PC.NURSE ---
PT alert to self. Denies any pain. ambulating independently. Dinner tray provided. PT needed redirection and prompt to take medications as documented, stated I have to give it some thoughts .
[2022-07-05] MEDS: HaloperidoL 0.5 MG TABLET PO (21:24)
[2022-07-05] MEDS: Donepezil HCl 5 MG TABLET PO (21:24)
--- NOTE | 2022-07-06 00:17 | PC.NURSE ---
PT sitting in chair, talking to self. No apparent distress, will continue to monitor.
[2022-07-06 03:19] VITALS: BP 140/79; PULSE 71; RESP 17; TEMP 37.2; O2SAT 98
--- NOTE | 2022-07-06 03:41 | PC.NURSE ---
Pt sleeping, no apparent distress, will continue to observe. VSS.
--- NOTE | 2022-07-06 09:37 | MHC.CM.ED ---
Patient remains in ER. Patient does not have capacity to make his own decisions. Marissa Justice, Laboratory Mechanical Technician spoke with Elzbieta via telephone. Elzbieta aware she needs to follow up appropriately with appointments and telephone calls/visits from [facility]. Deandre MISHRA booked for 10am. Med [facility] with chart. Patient, Mary Ruff RN and Deepti TAM aware. Marissa of [facility] made aware via telephone. Continue to monitor for d/c needs.
[2022-07-06 09:44] VITALS: BP 143/76; PULSE 75; RESP 20; TEMP 36.7; O2SAT 99
[2022-07-06] MEDS: HaloperidoL 0.5 MG TABLET PO (09:46)
[2022-07-06] MEDS: Multivitamin TABLET 1 TAB PO (09:46)
== END 2022-07-06 10:40 | disposition home or self-care (01) ==
PROVIDERS: Physician Assistant; Emergency Provider Student in an Organized Health Care Education/Training Program
DX: F03.90 Unspecified dementia, unspecified severity, without behavioral disturbance, psychotic disturbance, mood disturbance, and anxiety (principal); Z79.899 Other long term (current) drug therapy; Z20.822 Contact with and (suspected) exposure to COVID-19; Z20.828 Contact with and (suspected) exposure to other viral communicable diseases
CPT/HCPCS: 0241U; 36415; 80053; 80307; 81001; 82077; 82140; 85025; 99285

== ENCOUNTER 2022-08-05 08:47 | Emergency (ER) | payer MEDICARE, SELFPAY ==
--- NOTE | ~2022-08-05 | CT_ITS ---
EXAMINATION: NONCONTRAST HEAD CT NONCONTRAST MAXILLOFACIAL CT NONCONTRAST CERVICAL SPINE CT INDICATION INFORMATION: Fall with head strike. Right inferior orbital swelling. COMPARISON: 12/28/2021 TECHNIQUE: Separate noncontrast CT examinations of the head, maxillofacial bones, and cervical spine were performed. Coronal and sagittal images were created for each examination at the technologist workstation. This CT examination was performed using dose optimization techniques as appropriate, variously including the following: *Automated exposure control *Adjustment of mA and/or kV according to patient size (this includes techniques or standardized protocols for targeted exams where dose is matched to indication/reason for exam; i.e. extremities or head) *Use of iterative reconstruction technique DLP: 1236 mGy-cm FINDINGS: Head: There is no evidence of acute intracranial hemorrhage or territorial infarction. No abnormal mass effect or midline shift is seen. Mariano to white matter differentiation is well preserved. No extra-axial fluid collections are identified. No hydrocephalus. Proportional prominence of the ventricles and sulcal spaces is consistent with moderate volume loss. Patchy periventricular and deep white matter hypoattenuation is consistent with mild small vessel ischemic changes. No acute soft tissue abnormality. No calvarial fracture. The mastoid air cells are well aerated. Maxillofacial: Mild right premaxillary soft tissue swelling. No acute maxillofacial fracture. The pterygoid plates are intact. Lamina papyracea are intact. The zygomatic arches are intact. The orbital rims are intact. The nasal bone is intact. The mandible is intact. Mucous retention cysts are noted in the right maxillary sinus. The remaining paranasal sinuses are well aerated. The uncinate process is normal bilaterally. The infundibula and middle meati are patent. The nasal septum deviates minimally to the right. The mandibular heads are well-seated in the condylar fossa. The orbits demonstrate a normal appearance bilaterally. The globes are intact, and there are no suspicious findings to suggest retrobulbar hemorrhage. Cervical spine: There is anatomic alignment of the vertebral bodies and posterior elements. The atlantoaxial and atlantooccipital articulations are intact. Vertebral body heights are maintained. There is multilevel intervertebral disc space narrowing with endplate osteophyte formation and facet arthropathy. No evidence of acute fracture. No prevertebral soft tissue swelling. Visualized portions of the lung apices are unremarkable. The thyroid gland is unremarkable. CT/CT cervical spine wo IV con IMPRESSION: 1. No acute intracranial finding. 2. No acute maxillofacial fracture. Mild right premaxillary soft tissue swelling. 3. No acute fracture or malalignment of the cervical spine. Mild degenerative change.
--- NOTE | ~2022-08-05 | XR_ITS ---
EXAMINATION: XR CHEST CLINICAL INFORMATION: Chest pain COMPARISON: 06/19/2020 TECHNIQUE: Frontal view of the chest was obtained. FINDINGS: No significant abnormality is noted involving the heart, lungs, mediastinum, bony thorax or soft tissues. XR/XR chest 1V IMPRESSION: No active cardiopulmonary disease.
--- NOTE | ~2022-08-05 | XR_ITS ---
EXAMINATION: XR KNEE, RIGHT CLINICAL INFORMATION: Left lateral knee pain after falling COMPARISON: None TECHNIQUE: Four views of the right knee. FINDINGS: No definite evidence for acute fracture or dislocation. No osteochondral lesions or erosions. There is evidence of small loose bodies. No significant joint effusion. XR/XR knee RT 3V IMPRESSION: 1. No definite evidence for acute fracture or dislocation. 2. Small loose bodies.
--- NOTE | ~2022-08-05 | XR_ITS ---
EXAMINATION: XR CHEST CLINICAL INFORMATION: Cough. Question aspiration. COMPARISON: Chest x-ray 08/07/2022 TECHNIQUE: Frontal view of the chest was obtained. FINDINGS: Cardiac silhouette is normal in size. The lungs are well aerated. There is no lobar consolidation. No pleural effusion or pneumothorax. Scoliotic and degenerative changes of the spine. XR/XR chest 1V IMPRESSION: No acute pulmonary pathology.
[2022-08-05 08:53] VITALS: BP 122/68; BP 150/90; PULSE 73; PULSE 75; RESP 16; TEMP 36.6; O2SAT 98; O2SAT 99; BMI 20.5
--- NOTE | 2022-08-05 09:24 | ED.FALL ---
HPI - Fall General Chief Complaint: Fall <Felicita Taniamargaret Romano CNP - Last Filed: 08/14/22 09:31> Stated Complaint: Fall (poss head strike) per EMS <Felicitatess Romano CNP - Last Filed: 08/14/22 09:31> Time Seen by Provider: 08/05/22 08:53 <Felicita Romano CNP - Last Filed: 08/14/22 09:31> Source: patient and EMS <Felicita Taniamargaret Romano CNP - Last Filed: 08/14/22 09:31> Mode of arrival: EMS <Felicita Taniamargaret Romano CNP - Last Filed: 08/14/22 09:31> Limitations: altered mental status ( dementia) <Felicita Romano CNP - Last Filed: 08/14/22 09:31> History of Present Illness HPI Narrative: patient is a 72 old male who presents to the emergency department via EMS. Per EMS report, patient was with his , when he tripped outdoors while on a walk, falling forward and striking his head on the cement. There was no reported loss of consciousness. However, after the fall patient seemed more altered/ confused than what is typical for baseline. At the time of my examination family is not present at the bedside. Patient does state that he fell forward on the cement outside. He has an abrasion and bruising beneath the right eye. Reports pain to the right knee, pointing to a superficial abrasion. no reported anticoagulants usage. <Felicita Romano CNP - Last Filed: 08/14/22 09:31> Related Data Home Medications: Home Medications Medication Instructions Recorded Confirmed multivitamin 1 tab PO DAILY 06/19/22 08/05/22 Previous Rx's Medication Instructions Recorded haloperidol 0.5 mg tablet 0.5 mg PO BID #60 tabs 07/03/22 donepezil 5 mg tablet (Aricept) 5 mg PO DAILY #30 tabs 07/06/22 <Felicita Romano CNP - Last Filed: 08/14/22 09:31> Allergies/Adverse Reactions: Allergies Allergy/AdvReac Type Severity Reaction Status Date / Time No Known Allergies Allergy Unverified 07/03/21 05:39 <Felicita Romano CNP - Last Filed: 08/14/22 09:31> Review of Systems Review of Systems: pertinent positives as noted in HPI <Felicita RomanoANGIE - Last Filed: 08/14/22 09:31> Yes Unobtainable due to mental condition ( Dementia) <Felicita RomanoANGIE - Last Filed: 08/14/22 09:31> PMFSH Past Medical History Attestation statement: The following information was validated with the patient. <Felicita Marin ANGIE Romano - Last Filed: 08/14/22 09:31> Source: old records reviewed <Felicita KingstonANGIE harley - Last Filed: 08/14/22 09:31> Social History Social History: Social History Household Members: Significant Other Housing: Other Housing Other:: [facility] Do you presently have visiting nurse or other home services: No Alcohol intake: never Patient Tobacco Use Status: Never used Tobacco Smoked in Last 30 Days: No Use of substances other than those prescribed or required for medical reasons: No Advance Directives: Yes Advance Directives on File: No service: No Sexual orientation: Straight/Heterosexual <Felicita KingstonANGIE harley - Last Filed: 08/14/22 09:31> Physical Exam Vital Signs: Vital Signs: Last Vital Signs Temp 98.7 F 08/16/22 07:45 Pulse 70 08/16/22 07:45 Resp 16 08/16/22 07:45 BP 116/68 08/16/22 07:45 Pulse Ox 95 08/16/22 07:45 O2 Del Method 08/16/22 07:45 BMI result Body Mass Index 20.5 <Felicita KingstonANGIE harley - Last Filed: 08/14/22 09:31> Vital Signs: Last Vital Signs Temp 98.7 F 08/16/22 07:45 Pulse 70 08/16/22 07:45 Resp 16 08/16/22 07:45 BP 116/68 08/16/22 07:45 Pulse Ox 95 08/16/22 07:45 O2 Del Method 08/16/22 07:45 BMI result Body Mass Index 20.5 <ANEL Vo - Last Filed: 08/05/22 21:22> Vital Signs: Last Vital Signs Temp 98.7 F 08/16/22 07:45 Pulse 70 08/16/22 07:45 Resp 16 08/16/22 07:45 BP 116/68 08/16/22 07:45 Pulse Ox 95 08/16/22 07:45 O2 Del Method 08/16/22 07:45 BMI result Body Mass Index 20.5 <Deana Cortez NP - Last Filed: 08/12/22 08:32> Vital Signs: Last Vital Signs Temp 98.7 F 08/16/22 07:45 Pulse 70 08/16/22 07:45 Resp 16 08/16/22 07:45 BP 116/68 08/16/22 07:45 Pulse Ox 95 08/16/22 07:45 O2 Del Method 08/16/22 07:45 BMI result Body Mass Index 20.5 <ANEL Ashton - Last Filed: 08/10/22 08:40> Vital Signs: Last Vital Signs Temp 98.7 F 08/16/22 07:45 Pulse 70 08/16/22 07:45 Resp 16 08/16/22 07:45 BP 116/68 08/16/22 07:45 Pulse Ox 95 08/16/22 07:45 O2 Del Method 08/16/22 07:45 BMI result Body Mass Index 20.5 <Santo Velarde MD - Last Filed: 08/11/22 16:12> Vital Signs: Last Vital Signs Temp 98.7 F 08/16/22 07:45 Pulse 70 08/16/22 07:45 Resp 16 08/16/22 07:45 BP 116/68 08/16/22 07:45 Pulse Ox 95 08/16/22 07:45 O2 Del Method 08/16/22 07:45 BMI result Body Mass Index 20.5 <ANEL Bernabe - Last Filed: 08/15/22 13:44> Appearance: Alert.?Oriented To person, disoriented to place and time.. No acute distress.?Normal affect. Eyes: Pupils equal, round and reactive to light.? EOMI. No nystagmus. No raccoon eyes. ENT: Pharynx normal.?? TM normal bilaterally. No Haque sign. Neck: Normal inspection.? Neck supple.?? No midline cervical spine tenderness, step-offs, deformities. CVS: Heart sounds normal. Normal heart rate and rhythm.? Pulses normal.?? Respiratory: No respiratory distress.? Lung sounds clear to auscultation bilaterally?? Abdomen: Soft and non-tender. Normoactive bowel sounds. Skin: Skin warm and dry.? Normal skin color. Extremities: No lower extremity edema.? No calf ttp? Positive abrasion to the right lateral knee, full AROM is intact, 2+ DP / PT pulses intact bilaterally. Full range of motion present to bilateral upper and lower extremities without complication. Neuro: Moves all extremities spontaneously. Sensation intact bilaterally. No focal neuro deficits. <Felicita Romano CNP - Last Filed: 08/14/22 09:31> Course Reevaluation(s) Reevaluation #1: CT head, cervical spine, and facial bones without acute intracranial finding, no acute maxillofacial fractures, although there is pre maxillary soft tissue swelling which correlates with present injury, no acute fracture malalignment of the cervical spine. XR imaging of the right knee without evidence of acute fracture dislocation. CBC is overall unremarkable, normocytic anemia which is consistent with Baseline. CMP overall unremarkable, mildly elevated BUN which appears consistent with baseline, I suspect this is likely due to dehydration in the setting of dementia. Will attempt ambulation trial, obtain urinalysis to exclude infection, and likely patient will be able to be discharged home <Felicita Romano CNP - Last Filed: 08/14/22 09:31> Reevaluation #2: Patient was cleared for discharge earlier this afternoon. Nursing staff has been awaiting call back from patient's as she is his meat packer. She is not answering the phone, has not presented to the emergency department to pick patient up. Due to his dementia, he is unsafe for discharge independently. At this time, patient will be placed in physician observation, and referral to Case Management pending safe disposition. Ordered [facility], provided with dinner. <Felicita Romano CNP - Last Filed: 08/14/22:> Time: 18:22 <Felicita Romano CNP - Last Filed: 08/14/22 09:31> Reevaluation #3: [facility] has an open case on this patient, case management further looking into this case prior to coming up with patient disposition. <ANEL Vo - Last Filed: 08/05/22 21:22> Time: 21:21 <NAEL Vo - Last Filed: 08/05/22 21:22> Additional Reevaluation(s): 08/06 1711- Patient was seen by Physical therapy and recommendations were for short-term rehab. Patient has case management involved in his care. Currently there is an open Elder protective Services case for the patient. There is concern that the patient cannot be cared at home by his appropriately. medications were reconciled this morning. No complaints from nursing overnight. Vital signs reviewed and stable. Will continue physician observation pending disposition <Deana Cortez NP - Last Filed: 08/12/22 08:32> 08/06 1711- Patient was seen by Physical therapy and recommendations were for short-term rehab. Patient has case management involved in his care. Currently there is an open Elder protective Services case for the patient. There is concern that the patient cannot be cared at home by his appropriately. medications were reconciled this morning. No complaints from nursing overnight. Vital signs reviewed and stable. Will continue physician observation pending disposition 08/10/21 - BP soft this morning 90/58, repeat pending now. SBP has ranged 110-160's during time in overflow. he is not on antihypertensives IVF ordered for now. will closely monitor and reassess. <ANEL Ashton - Last Filed: 08/10/22 08:40> 08/06 1711- Patient was seen by Physical therapy and recommendations were for short-term rehab. Patient has case management involved in his care. Currently there is an open Elder protective Services case for the patient. There is concern that the patient cannot be cared at home by his appropriately. medications were reconciled this morning. No complaints from nursing overnight. Vital signs reviewed and stable. Will continue physician observation pending disposition 08/10/21 - BP soft this morning 90/58, repeat pending now. SBP has ranged 110-160's during time in overflow. he is not on antihypertensives IVF ordered for now. will closely monitor and reassess. 08/15/22--physician observation continued. Vital signs stable. Labs reviewed. Case management following for placement, per note is interested in bringing patient home prior to impending LTC care. More discussion will happen tomorrow after holiday <ANEL Bernabe - Last Filed: 08/15/22 13:44> Medications Administered Generic Name Dose Route Start Last Admin Trade Name Freq PRN Reason Stop Dose Admin Acetaminophen 650 mg 08/08/22 08:57 08/14/22 06:36 Acetaminophen 325 Mg Tablet PO 650 mg ONCE PRN Administration Pain, Mild (Pain Scale 1-3) Acetaminophen 650 mg 08/14/22 14:55 08/15/22 04:01 Acetaminophen 325 Mg Tablet PO 650 mg Q6H PRN Administration Pain, Mild (Pain Scale 1-3) Donepezil HCl 5 mg 08/07/22 09:00 08/16/22 08:13 Donepezil Hcl 5 Mg Tablet PO 5 mg DAILY NIVIA Administration Haloperidol 0.5 mg 08/06/22 21:00 08/16/22 08:13 Haloperidol 0.5 Mg Tablet PO 0.5 mg BID NIVIA Administration Multivitamins/Vitamin C 1 tab 08/07/22 09:00 08/16/22 08:13 Multivitamin Tablet PO 1 tab DAILY NIVIA Administration Discontinued Medications Generic Name Dose Route Start Last Admin Trade Name Freq PRN Reason Stop Dose Admin Acetaminophen 650 mg 08/10/22 03:58 08/10/22 04:14 Acetaminophen 325 Mg Tablet PO 08/10/22 03:59 650 mg ONCE ONE Administration Lorazepam 0.5 mg 08/06/22 20:47 08/06/22 20:52 Lorazepam 0.5 Mg Tablet PO 08/06/22 20:48 0.5 mg ONCE ONE Administration Melatonin 3 mg 08/07/22 00:32 08/07/22 01:11 Melatonin 3 Mg Tablet PO 08/07/22 00:33 Not Given ONCE ONE <Felicita Romano CNP - Last Filed: 08/14/22 09:31> Medications Administered Generic Name Dose Route Start Last Admin Trade Name Freq PRN Reason Stop Dose Admin Acetaminophen 650 mg 08/08/22 08:57 08/14/22 06:36 Acetaminophen 325 Mg Tablet PO 650 mg ONCE PRN Administration Pain, Mild (Pain Scale 1-3) Acetaminophen 650 mg 08/14/22 14:55 08/15/22 04:01 Acetaminophen 325 Mg Tablet PO 650 mg Q6H PRN Administration Pain, Mild (Pain Scale 1-3) Donepezil HCl 5 mg 08/07/22 09:00 08/16/22 08:13 Donepezil Hcl 5 Mg Tablet PO 5 mg DAILY NIVIA Administration Haloperidol 0.5 mg 08/06/22 21:00 08/16/22 08:13 Haloperidol 0.5 Mg Tablet PO 0.5 mg BID NIVIA Administration Multivitamins/Vitamin C 1 tab 08/07/22 09:00 08/16/22 08:13 Multivitamin Tablet PO 1 tab DAILY NIVIA Administration Discontinued Medications Generic Name Dose Route Start Last Admin Trade Name Tannerq PRN Reason Stop Dose Admin Acetaminophen 650 mg 08/10/22 03:58 08/10/22 04:14 Acetaminophen 325 Mg Tablet PO 08/10/22 03:59 650 mg ONCE ONE Administration Lorazepam 0.5 mg 08/06/22 20:47 08/06/22 20:52 Lorazepam 0.5 Mg Tablet PO 08/06/22 20:48 0.5 mg ONCE ONE Administration Melatonin 3 mg 08/07/22 00:32 08/07/22 01:11 Melatonin 3 Mg Tablet PO 08/07/22 00:33 Not Given ONCE ONE <ANEL Vo - Last Filed: 08/05/22 21:22> Medications Administered Generic Name Dose Route Start Last Admin Trade Name Efren PRN Reason Stop Dose Admin Acetaminophen 650 mg 08/08/22 08:57 08/14/22 06:36 Acetaminophen 325 Mg Tablet PO 650 mg ONCE PRN Administration Pain, Mild (Pain Scale 1-3) Acetaminophen 650 mg 08/14/22 14:55 08/15/22 04:01 Acetaminophen 325 Mg Tablet PO 650 mg Q6H PRN Administration Pain, Mild (Pain Scale 1-3) Donepezil HCl 5 mg 08/07/22 09:00 08/16/22 08:13 Donepezil Hcl 5 Mg Tablet PO 5 mg DAILY NIVIA Administration Haloperidol 0.5 mg 08/06/22 21:00 08/16/22 08:13 Haloperidol 0.5 Mg Tablet PO 0.5 mg BID NIVIA Administration Multivitamins/Vitamin C 1 tab 08/07/22 09:00 08/16/22 08:13 Multivitamin Tablet PO 1 tab DAILY NIVIA Administration Discontinued Medications Generic Name Dose Route Start Last Admin Trade Name Efren PRN Reason Stop Dose Admin Acetaminophen 650 mg 08/10/22 03:58 08/10/22 04:14 Acetaminophen 325 Mg Tablet PO 08/10/22 03:59 650 mg ONCE ONE Administration Lorazepam 0.5 mg 08/06/22 20:47 08/06/22 20:52 Lorazepam 0.5 Mg Tablet PO 08/06/22 20:48 0.5 mg ONCE ONE Administration Melatonin 3 mg 08/07/22 00:32 08/07/22 01:11 Melatonin 3 Mg Tablet PO 08/07/22 00:33 Not Given ONCE ONE <Deana Cortez NP - Last Filed: 08/12/22 08:32> Medications Administered Generic Name Dose Route Start Last Admin Trade Name Efren PRN Reason Stop Dose Admin Acetaminophen 650 mg 08/08/22 08:57 08/14/22 06:36 Acetaminophen 325 Mg Tablet PO 650 mg ONCE PRN Administration Pain, Mild (Pain Scale 1-3) Acetaminophen 650 mg 08/14/22 14:55 08/15/22 04:01 Acetaminophen 325 Mg Tablet PO 650 mg Q6H PRN Administration Pain, Mild (Pain Scale 1-3) Donepezil HCl 5 mg 08/07/22 09:00 08/16/22 08:13 Donepezil Hcl 5 Mg Tablet PO 5 mg DAILY NIVIA Administration Haloperidol 0.5 mg 08/06/22 21:00 08/16/22 08:13 Haloperidol 0.5 Mg Tablet PO 0.5 mg BID NIVIA Administration Multivitamins/Vitamin C 1 tab 08/07/22 09:00 08/16/22 08:13 Multivitamin Tablet PO 1 tab DAILY NIVIA Administration Discontinued Medications Generic Name Dose Route Start Last Admin Trade Name Efren PRN Reason Stop Dose Admin Acetaminophen 650 mg 08/10/22 03:58 08/10/22 04:14 Acetaminophen 325 Mg Tablet PO 08/10/22 03:59 650 mg ONCE ONE Administration Lorazepam 0.5 mg 08/06/22 20:47 08/06/22 20:52 Lorazepam 0.5 Mg Tablet PO 08/06/22 20:48 0.5 mg ONCE ONE Administration Melatonin 3 mg 08/07/22 00:32 08/07/22 01:11 Melatonin 3 Mg Tablet PO 08/07/22 00:33 Not Given ONCE ONE <ANEL Ashton - Last Filed: 08/10/22 08:40> Medications Administered Generic Name Dose Route Start Last Admin Trade Name Freq PRN Reason Stop Dose Admin Acetaminophen 650 mg 08/08/22 08:57 08/14/22 06:36 Acetaminophen 325 Mg Tablet PO 650 mg ONCE PRN Administration Pain, Mild (Pain Scale 1-3) Acetaminophen 650 mg 08/14/22 14:55 08/15/22 04:01 Acetaminophen 325 Mg Tablet PO 650 mg Q6H PRN Administration Pain, Mild (Pain Scale 1-3) Donepezil HCl 5 mg 08/07/22 09:00 08/16/22 08:13 Donepezil Hcl 5 Mg Tablet PO 5 mg DAILY NIVIA Administration Haloperidol 0.5 mg 08/06/22 21:00 08/16/22 08:13 Haloperidol 0.5 Mg Tablet PO 0.5 mg BID NIVIA Administration Multivitamins/Vitamin C 1 tab 08/07/22 09:00 08/16/22 08:13 Multivitamin Tablet PO 1 tab DAILY NIVIA Administration Discontinued Medications Generic Name Dose Route Start Last Admin Trade Name Freq PRN Reason Stop Dose Admin Acetaminophen 650 mg 08/10/22 03:58 08/10/22 04:14 Acetaminophen 325 Mg Tablet PO 08/10/22 03:59 650 mg ONCE ONE Administration Lorazepam 0.5 mg 08/06/22 20:47 08/06/22 20:52 Lorazepam 0.5 Mg Tablet PO 08/06/22 20:48 0.5 mg ONCE ONE Administration Melatonin 3 mg 08/07/22 00:32 08/07/22 01:11 Melatonin 3 Mg Tablet PO 08/07/22 00:33 Not Given ONCE ONE <Santo Velarde MD - Last Filed: 08/11/22 16:12> Medications Administered Generic Name Dose Route Start Last Admin Trade Name Freq PRN Reason Stop Dose Admin Acetaminophen 650 mg 08/08/22 08:57 08/14/22 06:36 Acetaminophen 325 Mg Tablet PO 650 mg ONCE PRN Administration Pain, Mild (Pain Scale 1-3) Acetaminophen 650 mg 08/14/22 14:55 08/15/22 04:01 Acetaminophen 325 Mg Tablet PO 650 mg Q6H PRN Administration Pain, Mild (Pain Scale 1-3) Donepezil HCl 5 mg 08/07/22 09:00 08/16/22 08:13 Donepezil Hcl 5 Mg Tablet PO 5 mg DAILY NIVIA Administration Haloperidol 0.5 mg 08/06/22 21:00 08/16/22 08:13 Haloperidol 0.5 Mg Tablet PO 0.5 mg BID NIVIA Administration Multivitamins/Vitamin C 1 tab 08/07/22 09:00 08/16/22 08:13 Multivitamin Tablet PO 1 tab DAILY NIVIA Administration Discontinued Medications Generic Name Dose Route Start Last Admin Trade Name Efren LOWE Reason Stop Dose Admin Acetaminophen 650 mg 08/10/22 03:58 08/10/22 04:14 Acetaminophen 325 Mg Tablet PO 08/10/22 03:59 650 mg ONCE ONE Administration Lorazepam 0.5 mg 08/06/22 20:47 08/06/22 20:52 Lorazepam 0.5 Mg Tablet PO 08/06/22 20:48 0.5 mg ONCE ONE Administration Melatonin 3 mg 08/07/22 00:32 08/07/22 01:11 Melatonin 3 Mg Tablet PO 08/07/22 00:33 Not Given ONCE ONE <ANEL Bernabe - Last Filed: 08/15/22 13:44> Medical Decision Making Medical Decision Making [facility] Narrative: Patient is a 72-year-old male with past medical history of dementia presenting to emergency department via EMS for evaluation after a mechanical fall reportedly tripping on the cement without loss of consciousness although head strike did occurred. according to patient's he seemed more altered/ confused after the fall. At the time of my examination there are no focal neurological deficits, there is bruising to the right inferior orbit, mild tenderness upon palpation, expresses pain, no sign of entrapment, globe rupture. Also complaining of right knee pain, superficial abrasion is present, lower suspicion for fracture dislocation, however given history of dementia, will obtain XR to exclude. <Felicita Romano CNP - Last Filed: 08/14/22 09:31> Differential Diagnosis Differential Diagnoses: The differential diagnosis associated with the presentation includes ( ICH/ SAH /SDH, Delirium, dementia, urinary tract infection,) <Felicita Romano CNP - Last Filed: 08/14/22 09:31> Lab Data [facility] Lab Attestation statement: I reviewed the patient's lab results. <Felicita Romano CNP - Last Filed: 08/14/22 09:31> Result Diagrams: 08/05/22 09:51 08/05/22 09:51 <Felicita Romano CNP - Last Filed: 08/14/22 09:31> Labs: Lab Results 08/05/22 08/05/22 08/05/22 Range/Units 09:51 09:51 13:09 WBC 6.9 (4.8-10.8) X10*3/uL RBC 4.19 L (4.60-5.80) X10*6/uL Hgb 12.5 L (14.0-18.0) g/dl Hct 37.1 L (42.0-52.0) % MCV 88.5 (80.0-98.0) fL MCH 29.8 (27.0-33.0) pg MCHC 33.7 (31.0-36.0) g/dl RDW 12.4 (11.0-16.0) % Plt Count 188 (160-400) X10*3/uL MPV 9.3 L (9.4-12.4) fL Immature Gran % (Auto) 0.4 (0.0-0.4) % Neut % (Auto) 77.2 H (45-73) % Lymph % (Auto) 11.9 L (20-40) % Centre % (Auto) 8.9 (2-11) % Eos % (Auto) 1.2 (0-4) % Baso % (Auto) 0.4 (0-2) % Lymph # (Auto) 0.8 L (1.2-4.9) X10*3/uL Centre # (Auto) 0.6 (0.1-1.2) X10*3/uL Eos # (Auto) 0.1 (0.0-0.4) X10*3/uL Baso # (Auto) 0.0 (0.0-0.2) X10*3/uL Abs Immat Gran (auto) 0.03 (0.00-0.03) X10*3/uL Absolute Neuts (auto) 5.3 (2.0-8.3) x10*3/uL Absolute Nucleated RBC 0.000 (0.0-0.012) X10*3/uL Nucleated RBC % (auto) 0.0 (0.0-0.2) /100WBC Sodium 139 (135-145) mmol/L Potassium 4.5 (3.3-5.1) mmol/L Chloride 102 (96-108) mmol/L Carbon Dioxide 27 (22-29) mmol/L Anion Gap 15 (12-20) BUN 23 H (9-16) mg/dL Creatinine 1.03 (0.5-1.4) mg/dL Estim Creat Clear Calc 64.5 Estimated GFR > 60 Random Glucose 108 (60-115) mg/dL Calcium 9.7 (8.4-10.2) mg/dL Total Bilirubin 1.3 H (0.0-1.0) mg/dL Direct Bilirubin (0.0-0.5) mg/dL AST 18 (5-37) U/L ALT 11 (0-40) U/L Alkaline Phosphatase 61 (39-117) U/L Troponin I High Sens (<3.5-35.0) ng/L Total Protein 6.5 (6.5-8.0) g/dL Albumin 4.1 (3.5-5.0) g/dL Urine Color Yellow Urine Appearance Clear Urine pH 5.0 (5.0-9.0) Ur Specific [place] 1.015 (1.005-1.025) Urine Protein Negative (Neg-Trace) mg/dL Urine Glucose (UA) Negative (Negative) mg/dL Urine Ketones 15 (Negative) mg/dL Urine Blood Negative (Negative) Urine Nitrite Negative (Negative) Ur Leukocyte Esterase Negative (Negative) Influenza Type A (PCR) (Negative) Influenza Type B (PCR) (Negative) RSV RNA Qual (PCR) (Negative) SARS-CoV-2 RNA (RT-PCR) (Negative) 08/07/22 08/07/22 08/07/22 Range/Units 14:43 14:43 14:43 WBC 5.1 (4.8-10.8) X10*3/uL RBC 4.27 L (4.60-5.80) X10*6/uL Hgb 12.8 L (14.0-18.0) g/dl Hct 38.3 L (42.0-52.0) % MCV 89.7 (80.0-98.0) fL MCH 30.0 (27.0-33.0) pg MCHC 33.4 (31.0-36.0) g/dl RDW 12.3 (11.0-16.0) % Plt Count TNP (160-400) X10*3/uL MPV 11.3 (9.4-12.4) fL Immature Gran % (Auto) 0.4 (0.0-0.4) % Neut % (Auto) 65.8 (45-73) % Lymph % (Auto) 22.7 (20-40) % Centre % (Auto) 6.8 (2-11) % Eos % (Auto) 3.7 (0-4) % Baso % (Auto) 0.6 (0-2) % Lymph # (Auto) 1.2 (1.2-4.9) X10*3/uL Centre # (Auto) 0.4 (0.1-1.2) X10*3/uL Eos # (Auto) 0.2 (0.0-0.4) X10*3/uL Baso # (Auto) 0.0 (0.0-0.2) X10*3/uL Abs Immat Gran (auto) 0.02 (0.00-0.03) X10*3/uL Absolute Neuts (auto) 3.4 (2.0-8.3) x10*3/uL Absolute Nucleated RBC 0.000 (0.0-0.012) X10*3/uL Nucleated RBC % (auto) 0.0 (0.0-0.2) /100WBC Sodium 141 (135-145) mmol/L Potassium 3.5 D (3.3-5.1) mmol/L Chloride 101 (96-108) mmol/L Carbon Dioxide 30 H (22-29) mmol/L Anion Gap 14 (12-20) BUN 28 H (9-16) mg/dL Creatinine 1.00 (0.5-1.4) mg/dL Estim Creat Clear Calc 66.5 Estimated GFR > 60 Random Glucose 196 H (60-115) mg/dL Calcium 9.6 (8.4-10.2) mg/dL Total Bilirubin 0.8 (0.0-1.0) mg/dL Direct Bilirubin 0.3 (0.0-0.5) mg/dL AST 21 (5-37) U/L ALT 13 (0-40) U/L Alkaline Phosphatase 58 (39-117) U/L Troponin I High Sens 4.1 (<3.5-35.0) ng/L Total Protein 6.6 (6.5-8.0) g/dL Albumin 4.1 (3.5-5.0) g/dL Urine Color Urine Appearance Urine pH (5.0-9.0) Ur Specific [place] (1.005-1.025) Urine Protein (Neg-Trace) mg/dL Urine Glucose (UA) (Negative) mg/dL Urine Ketones (Negative) mg/dL Urine Blood (Negative) Urine Nitrite (Negative) Ur Leukocyte Esterase (Negative) Influenza Type A (PCR) (Negative) Influenza Type B (PCR) (Negative) RSV RNA Qual (PCR) (Negative) SARS-CoV-2 RNA (RT-PCR) (Negative) 08/07/22 08/08/22 Range/Units 16:33 09:10 WBC (4.8-10.8) X10*3/uL RBC (4.60-5.80) X10*6/uL Hgb (14.0-18.0) g/dl Hct (42.0-52.0) % MCV (80.0-98.0) fL MCH (27.0-33.0) pg MCHC (31.0-36.0) g/dl RDW (11.0-16.0) % Plt Count (160-400) X10*3/uL MPV (9.4-12.4) fL Immature Gran % (Auto) (0.0-0.4) % Neut % (Auto) (45-73) % Lymph % (Auto) (20-40) % Centre % (Auto) (2-11) % Eos % (Auto) (0-4) % Baso % (Auto) (0-2) % Lymph # (Auto) (1.2-4.9) X10*3/uL Centre # (Auto) (0.1-1.2) X10*3/uL Eos # (Auto) (0.0-0.4) X10*3/uL Baso # (Auto) (0.0-0.2) X10*3/uL Abs Immat Gran (auto) (0.00-0.03) X10*3/uL Absolute Neuts (auto) (2.0-8.3) x10*3/uL Absolute Nucleated RBC (0.0-0.012) X10*3/uL Nucleated RBC % (auto) (0.0-0.2) /100WBC Sodium (135-145) mmol/L Potassium (3.3-5.1) mmol/L Chloride (96-108) mmol/L Carbon Dioxide (22-29) mmol/L Anion Gap (12-20) BUN (9-16) mg/dL Creatinine (0.5-1.4) mg/dL Estim Creat Clear Calc Estimated GFR Random Glucose (60-115) mg/dL Calcium (8.4-10.2) mg/dL Total Bilirubin (0.0-1.0) mg/dL Direct Bilirubin (0.0-0.5) mg/dL AST (5-37) U/L ALT (0-40) U/L Alkaline Phosphatase (39-117) U/L Troponin I High Sens 3.6 (<3.5-35.0) ng/L Total Protein (6.5-8.0) g/dL Albumin (3.5-5.0) g/dL Urine Color Urine Appearance Urine pH (5.0-9.0) Ur Specific [place] (1.005-1.025) Urine Protein (Neg-Trace) mg/dL Urine Glucose (UA) (Negative) mg/dL Urine Ketones (Negative) mg/dL Urine Blood (Negative) Urine Nitrite (Negative) Ur Leukocyte Esterase (Negative) Influenza Type A (PCR) NEGATIVE (Negative) Influenza Type B (PCR) NEGATIVE (Negative) RSV RNA Qual (PCR) NEGATIVE (Negative) SARS-CoV-2 RNA (RT-PCR) NEGATIVE (Negative) <Felicita Romano CNP - Last Filed: 08/14/22 09:31> Lab Results 08/05/22 08/05/22 08/05/22 Range/Units 09:51 09:51 13:09 WBC 6.9 (4.8-10.8) X10*3/uL RBC 4.19 L (4.60-5.80) X10*6/uL Hgb 12.5 L (14.0-18.0) g/dl Hct 37.1 L (42.0-52.0) % MCV 88.5 (80.0-98.0) fL MCH 29.8 (27.0-33.0) pg MCHC 33.7 (31.0-36.0) g/dl RDW 12.4 (11.0-16.0) % Plt Count 188 (160-400) X10*3/uL MPV 9.3 L (9.4-12.4) fL Immature Gran % (Auto) 0.4 (0.0-0.4) % Neut % (Auto) 77.2 H (45-73) % Lymph % (Auto) 11.9 L (20-40) % Centre % (Auto) 8.9 (2-11) % Eos % (Auto) 1.2 (0-4) % Baso % (Auto) 0.4 (0-2) % Lymph # (Auto) 0.8 L (1.2-4.9) X10*3/uL Centre # (Auto) 0.6 (0.1-1.2) X10*3/uL Eos # (Auto) 0.1 (0.0-0.4) X10*3/uL Baso # (Auto) 0.0 (0.0-0.2) X10*3/uL Abs Immat Gran (auto) 0.03 (0.00-0.03) X10*3/uL Absolute Neuts (auto) 5.3 (2.0-8.3) x10*3/uL Absolute Nucleated RBC 0.000 (0.0-0.012) X10*3/uL Nucleated RBC % (auto) 0.0 (0.0-0.2) /100WBC Sodium 139 (135-145) mmol/L Potassium 4.5 (3.3-5.1) mmol/L Chloride 102 (96-108) mmol/L Carbon Dioxide 27 (22-29) mmol/L Anion Gap 15 (12-20) BUN 23 H (9-16) mg/dL Creatinine 1.03 (0.5-1.4) mg/dL Estim Creat Clear Calc 64.5 Estimated GFR > 60 Random Glucose 108 (60-115) mg/dL Calcium 9.7 (8.4-10.2) mg/dL Total Bilirubin 1.3 H (0.0-1.0) mg/dL Direct Bilirubin (0.0-0.5) mg/dL AST 18 (5-37) U/L ALT 11 (0-40) U/L Alkaline Phosphatase 61 (39-117) U/L Troponin I High Sens (<3.5-35.0) ng/L Total Protein 6.5 (6.5-8.0) g/dL Albumin 4.1 (3.5-5.0) g/dL Urine Color Yellow Urine Appearance Clear Urine pH 5.0 (5.0-9.0) Ur Specific [place] 1.015 (1.005-1.025) Urine Protein Negative (Neg-Trace) mg/dL Urine Glucose (UA) Negative (Negative) mg/dL Urine Ketones 15 (Negative) mg/dL Urine Blood Negative (Negative) Urine Nitrite Negative (Negative) Ur Leukocyte Esterase Negative (Negative) Influenza Type A (PCR) (Negative) Influenza Type B (PCR) (Negative) RSV RNA Qual (PCR) (Negative) SARS-CoV-2 RNA (RT-PCR) (Negative) 08/07/22 08/07/22 08/07/22 Range/Units 14:43 14:43 14:43 WBC 5.1 (4.8-10.8) X10*3/uL RBC 4.27 L (4.60-5.80) X10*6/uL Hgb 12.8 L (14.0-18.0) g/dl Hct 38.3 L (42.0-52.0) % MCV 89.7 (80.0-98.0) fL MCH 30.0 (27.0-33.0) pg MCHC 33.4 (31.0-36.0) g/dl RDW 12.3 (11.0-16.0) % Plt Count TNP (160-400) X10*3/uL MPV 11.3 (9.4-12.4) fL Immature Gran % (Auto) 0.4 (0.0-0.4) % Neut % (Auto) 65.8 (45-73) % Lymph % (Auto) 22.7 (20-40) % Centre % (Auto) 6.8 (2-11) % Eos % (Auto) 3.7 (0-4) % Baso % (Auto) 0.6 (0-2) % Lymph # (Auto) 1.2 (1.2-4.9) X10*3/uL Centre # (Auto) 0.4 (0.1-1.2) X10*3/uL Eos # (Auto) 0.2 (0.0-0.4) X10*3/uL Baso # (Auto) 0.0 (0.0-0.2) X10*3/uL Abs Immat Gran (auto) 0.02 (0.00-0.03) X10*3/uL Absolute Neuts (auto) 3.4 (2.0-8.3) x10*3/uL Absolute Nucleated RBC 0.000 (0.0-0.012) X10*3/uL Nucleated RBC % (auto) 0.0 (0.0-0.2) /100WBC Sodium 141 (135-145) mmol/L Potassium 3.5 D (3.3-5.1) mmol/L Chloride 101 (96-108) mmol/L Carbon Dioxide 30 H (22-29) mmol/L Anion Gap 14 (12-20) BUN 28 H (9-16) mg/dL Creatinine 1.00 (0.5-1.4) mg/dL Estim Creat Clear Calc 66.5 Estimated GFR > 60 Random Glucose 196 H (60-115) mg/dL Calcium 9.6 (8.4-10.2) mg/dL Total Bilirubin 0.8 (0.0-1.0) mg/dL Direct Bilirubin 0.3 (0.0-0.5) mg/dL AST 21 (5-37) U/L ALT 13 (0-40) U/L Alkaline Phosphatase 58 (39-117) U/L Troponin I High Sens 4.1 (<3.5-35.0) ng/L Total Protein 6.6 (6.5-8.0) g/dL Albumin 4.1 (3.5-5.0) g/dL Urine Color Urine Appearance Urine pH (5.0-9.0) Ur Specific [place] (1.005-1.025) Urine Protein (Neg-Trace) mg/dL Urine Glucose (UA) (Negative) mg/dL Urine Ketones (Negative) mg/dL Urine Blood (Negative) Urine Nitrite (Negative) Ur Leukocyte Esterase (Negative) Influenza Type A (PCR) (Negative) Influenza Type B (PCR) (Negative) RSV RNA Qual (PCR) (Negative) SARS-CoV-2 RNA (RT-PCR) (Negative) 08/07/22 08/08/22 Range/Units 16:33 09:10 WBC (4.8-10.8) X10*3/uL RBC (4.60-5.80) X10*6/uL Hgb (14.0-18.0) g/dl Hct (42.0-52.0) % MCV (80.0-98.0) fL MCH (27.0-33.0) pg MCHC (31.0-36.0) g/dl RDW (11.0-16.0) % Plt Count (160-400) X10*3/uL MPV (9.4-12.4) fL Immature Gran % (Auto) (0.0-0.4) % Neut % (Auto) (45-73) % Lymph % (Auto) (20-40) % Centre % (Auto) (2-11) % Eos % (Auto) (0-4) % Baso % (Auto) (0-2) % Lymph # (Auto) (1.2-4.9) X10*3/uL Centre # (Auto) (0.1-1.2) X10*3/uL Eos # (Auto) (0.0-0.4) X10*3/uL Baso # (Auto) (0.0-0.2) X10*3/uL Abs Immat Gran (auto) (0.00-0.03) X10*3/uL Absolute Neuts (auto) (2.0-8.3) x10*3/uL Absolute Nucleated RBC (0.0-0.012) X10*3/uL Nucleated RBC % (auto) (0.0-0.2) /100WBC Sodium (135-145) mmol/L Potassium (3.3-5.1) mmol/L Chloride (96-108) mmol/L Carbon Dioxide (22-29) mmol/L Anion Gap (12-20) BUN (9-16) mg/dL Creatinine (0.5-1.4) mg/dL Estim Creat Clear Calc Estimated GFR Random Glucose (60-115) mg/dL Calcium (8.4-10.2) mg/dL Total Bilirubin (0.0-1.0) mg/dL Direct Bilirubin (0.0-0.5) mg/dL AST (5-37) U/L ALT (0-40) U/L Alkaline Phosphatase (39-117) U/L Troponin I High Sens 3.6 (<3.5-35.0) ng/L Total Protein (6.5-8.0) g/dL Albumin (3.5-5.0) g/dL Urine Color Urine Appearance Urine pH (5.0-9.0) Ur Specific [place] (1.005-1.025) Urine Protein (Neg-Trace) mg/dL Urine Glucose (UA) (Negative) mg/dL Urine Ketones (Negative) mg/dL Urine Blood (Negative) Urine Nitrite (Negative) Ur Leukocyte Esterase (Negative) Influenza Type A (PCR) NEGATIVE (Negative) Influenza Type B (PCR) NEGATIVE (Negative) RSV RNA Qual (PCR) NEGATIVE (Negative) SARS-CoV-2 RNA (RT-PCR) NEGATIVE (Negative) <ANEL Vo - Last Filed: 08/05/22 21:22> Lab Results 08/05/22 08/05/22 08/05/22 Range/Units 09:51 09:51 13:09 WBC 6.9 (4.8-10.8) X10*3/uL RBC 4.19 L (4.60-5.80) X10*6/uL Hgb 12.5 L (14.0-18.0) g/dl Hct 37.1 L (42.0-52.0) % MCV 88.5 (80.0-98.0) fL MCH 29.8 (27.0-33.0) pg MCHC 33.7 (31.0-36.0) g/dl RDW 12.4 (11.0-16.0) % Plt Count 188 (160-400) X10*3/uL MPV 9.3 L (9.4-12.4) fL Immature Gran % (Auto) 0.4 (0.0-0.4) % Neut % (Auto) 77.2 H (45-73) % Lymph % (Auto) 11.9 L (20-40) % Centre % (Auto) 8.9 (2-11) % Eos % (Auto) 1.2 (0-4) % Baso % (Auto) 0.4 (0-2) % Lymph # (Auto) 0.8 L (1.2-4.9) X10*3/uL Centre # (Auto) 0.6 (0.1-1.2) X10*3/uL Eos # (Auto) 0.1 (0.0-0.4) X10*3/uL Baso # (Auto) 0.0 (0.0-0.2) X10*3/uL Abs Immat Gran (auto) 0.03 (0.00-0.03) X10*3/uL Absolute Neuts (auto) 5.3 (2.0-8.3) x10*3/uL Absolute Nucleated RBC 0.000 (0.0-0.012) X10*3/uL Nucleated RBC % (auto) 0.0 (0.0-0.2) /100WBC Sodium 139 (135-145) mmol/L Potassium 4.5 (3.3-5.1) mmol/L Chloride 102 (96-108) mmol/L Carbon Dioxide 27 (22-29) mmol/L Anion Gap 15 (12-20) BUN 23 H (9-16) mg/dL Creatinine 1.03 (0.5-1.4) mg/dL Estim Creat Clear Calc 64.5 Estimated GFR > 60 Random Glucose 108 (60-115) mg/dL Calcium 9.7 (8.4-10.2) mg/dL Total Bilirubin 1.3 H (0.0-1.0) mg/dL Direct Bilirubin (0.0-0.5) mg/dL AST 18 (5-37) U/L ALT 11 (0-40) U/L Alkaline Phosphatase 61 (39-117) U/L Troponin I High Sens (<3.5-35.0) ng/L Total Protein 6.5 (6.5-8.0) g/dL Albumin 4.1 (3.5-5.0) g/dL Urine Color Yellow Urine Appearance Clear Urine pH 5.0 (5.0-9.0) Ur Specific [place] 1.015 (1.005-1.025) Urine Protein Negative (Neg-Trace) mg/dL Urine Glucose (UA) Negative (Negative) mg/dL Urine Ketones 15 (Negative) mg/dL Urine Blood Negative (Negative) Urine Nitrite Negative (Negative) Ur Leukocyte Esterase Negative (Negative) Influenza Type A (PCR) (Negative) Influenza Type B (PCR) (Negative) RSV RNA Qual (PCR) (Negative) SARS-CoV-2 RNA (RT-PCR) (Negative) 08/07/22 08/07/22 08/07/22 Range/Units 14:43 14:43 14:43 WBC 5.1 (4.8-10.8) X10*3/uL RBC 4.27 L (4.60-5.80) X10*6/uL Hgb 12.8 L (14.0-18.0) g/dl Hct 38.3 L (42.0-52.0) % MCV 89.7 (80.0-98.0) fL MCH 30.0 (27.0-33.0) pg MCHC 33.4 (31.0-36.0) g/dl RDW 12.3 (11.0-16.0) % Plt Count TNP (160-400) X10*3/uL MPV 11.3 (9.4-12.4) fL Immature Gran % (Auto) 0.4 (0.0-0.4) % Neut % (Auto) 65.8 (45-73) % Lymph % (Auto) 22.7 (20-40) % Centre % (Auto) 6.8 (2-11) % Eos % (Auto) 3.7 (0-4) % Baso % (Auto) 0.6 (0-2) % Lymph # (Auto) 1.2 (1.2-4.9) X10*3/uL Centre # (Auto) 0.4 (0.1-1.2) X10*3/uL Eos # (Auto) 0.2 (0.0-0.4) X10*3/uL Baso # (Auto) 0.0 (0.0-0.2) X10*3/uL Abs Immat Gran (auto) 0.02 (0.00-0.03) X10*3/uL Absolute Neuts (auto) 3.4 (2.0-8.3) x10*3/uL Absolute Nucleated RBC 0.000 (0.0-0.012) X10*3/uL Nucleated RBC % (auto) 0.0 (0.0-0.2) /100WBC Sodium 141 (135-145) mmol/L Potassium 3.5 D (3.3-5.1) mmol/L Chloride 101 (96-108) mmol/L Carbon Dioxide 30 H (22-29) mmol/L Anion Gap 14 (12-20) BUN 28 H (9-16) mg/dL Creatinine 1.00 (0.5-1.4) mg/dL Estim Creat Clear Calc 66.5 Estimated GFR > 60 Random Glucose 196 H (60-115) mg/dL Calcium 9.6 (8.4-10.2) mg/dL Total Bilirubin 0.8 (0.0-1.0) mg/dL Direct Bilirubin 0.3 (0.0-0.5) mg/dL AST 21 (5-37) U/L ALT 13 (0-40) U/L Alkaline Phosphatase 58 (39-117) U/L Troponin I High Sens 4.1 (<3.5-35.0) ng/L Total Protein 6.6 (6.5-8.0) g/dL Albumin 4.1 (3.5-5.0) g/dL Urine Color Urine Appearance Urine pH (5.0-9.0) Ur Specific [place] (1.005-1.025) Urine Protein (Neg-Trace) mg/dL Urine Glucose (UA) (Negative) mg/dL Urine Ketones (Negative) mg/dL Urine Blood (Negative) Urine Nitrite (Negative) Ur Leukocyte Esterase (Negative) Influenza Type A (PCR) (Negative) Influenza Type B (PCR) (Negative) RSV RNA Qual (PCR) (Negative) SARS-CoV-2 RNA (RT-PCR) (Negative) 08/07/22 08/08/22 Range/Units 16:33 09:10 WBC (4.8-10.8) X10*3/uL RBC (4.60-5.80) X10*6/uL Hgb (14.0-18.0) g/dl Hct (42.0-52.0) % MCV (80.0-98.0) fL MCH (27.0-33.0) pg MCHC (31.0-36.0) g/dl RDW (11.0-16.0) % Plt Count (160-400) X10*3/uL MPV (9.4-12.4) fL Immature Gran % (Auto) (0.0-0.4) % Neut % (Auto) (45-73) % Lymph % (Auto) (20-40) % Centre % (Auto) (2-11) % Eos % (Auto) (0-4) % Baso % (Auto) (0-2) % Lymph # (Auto) (1.2-4.9) X10*3/uL Centre # (Auto) (0.1-1.2) X10*3/uL Eos # (Auto) (0.0-0.4) X10*3/uL Baso # (Auto) (0.0-0.2) X10*3/uL Abs Immat Gran (auto) (0.00-0.03) X10*3/uL Absolute Neuts (auto) (2.0-8.3) x10*3/uL Absolute Nucleated RBC (0.0-0.012) X10*3/uL Nucleated RBC % (auto) (0.0-0.2) /100WBC Sodium (135-145) mmol/L Potassium (3.3-5.1) mmol/L Chloride (96-108) mmol/L Carbon Dioxide (22-29) mmol/L Anion Gap (12-20) BUN (9-16) mg/dL Creatinine (0.5-1.4) mg/dL Estim Creat Clear Calc Estimated GFR Random Glucose (60-115) mg/dL Calcium (8.4-10.2) mg/dL Total Bilirubin (0.0-1.0) mg/dL Direct Bilirubin (0.0-0.5) mg/dL AST (5-37) U/L ALT (0-40) U/L Alkaline Phosphatase (39-117) U/L Troponin I High Sens 3.6 (<3.5-35.0) ng/L Total Protein (6.5-8.0) g/dL Albumin (3.5-5.0) g/dL Urine Color Urine Appearance Urine pH (5.0-9.0) Ur Specific [place] (1.005-1.025) Urine Protein (Neg-Trace) mg/dL Urine Glucose (UA) (Negative) mg/dL Urine Ketones (Negative) mg/dL Urine Blood (Negative) Urine Nitrite (Negative) Ur Leukocyte Esterase (Negative) Influenza Type A (PCR) NEGATIVE (Negative) Influenza Type B (PCR) NEGATIVE (Negative) RSV RNA Qual (PCR) NEGATIVE (Negative) SARS-CoV-2 RNA (RT-PCR) NEGATIVE (Negative) <Deana Cortez, BAND EDGER - Last Filed: 08/12/22 08:32> Lab Results 08/05/22 08/05/22 08/05/22 Range/Units 09:51 09:51 13:09 WBC 6.9 (4.8-10.8) X10*3/uL RBC 4.19 L (4.60-5.80) X10*6/uL Hgb 12.5 L (14.0-18.0) g/dl Hct 37.1 L (42.0-52.0) % MCV 88.5 (80.0-98.0) fL MCH 29.8 (27.0-33.0) pg MCHC 33.7 (31.0-36.0) g/dl RDW 12.4 (11.0-16.0) % Plt Count 188 (160-400) X10*3/uL MPV 9.3 L (9.4-12.4) fL Immature Gran % (Auto) 0.4 (0.0-0.4) % Neut % (Auto) 77.2 H (45-73) % Lymph % (Auto) 11.9 L (20-40) % Centre % (Auto) 8.9 (2-11) % Eos % (Auto) 1.2 (0-4) % Baso % (Auto) 0.4 (0-2) % Lymph # (Auto) 0.8 L (1.2-4.9) X10*3/uL Centre # (Auto) 0.6 (0.1-1.2) X10*3/uL Eos # (Auto) 0.1 (0.0-0.4) X10*3/uL Baso # (Auto) 0.0 (0.0-0.2) X10*3/uL Abs Immat Gran (auto) 0.03 (0.00-0.03) X10*3/uL Absolute Neuts (auto) 5.3 (2.0-8.3) x10*3/uL Absolute Nucleated RBC 0.000 (0.0-0.012) X10*3/uL Nucleated RBC % (auto) 0.0 (0.0-0.2) /100WBC Sodium 139 (135-145) mmol/L Potassium 4.5 (3.3-5.1) mmol/L Chloride 102 (96-108) mmol/L Carbon Dioxide 27 (22-29) mmol/L Anion Gap 15 (12-20) BUN 23 H (9-16) mg/dL Creatinine 1.03 (0.5-1.4) mg/dL Estim Creat Clear Calc 64.5 Estimated GFR > 60 Random Glucose 108 (60-115) mg/dL Calcium 9.7 (8.4-10.2) mg/dL Total Bilirubin 1.3 H (0.0-1.0) mg/dL Direct Bilirubin (0.0-0.5) mg/dL AST 18 (5-37) U/L ALT 11 (0-40) U/L Alkaline Phosphatase 61 (39-117) U/L Troponin I High Sens (<3.5-35.0) ng/L Total Protein 6.5 (6.5-8.0) g/dL Albumin 4.1 (3.5-5.0) g/dL Urine Color Yellow Urine Appearance Clear Urine pH 5.0 (5.0-9.0) Ur Specific [place] 1.015 (1.005-1.025) Urine Protein Negative (Neg-Trace) mg/dL Urine Glucose (UA) Negative (Negative) mg/dL Urine Ketones 15 (Negative) mg/dL Urine Blood Negative (Negative) Urine Nitrite Negative (Negative) Ur Leukocyte Esterase Negative (Negative) Influenza Type A (PCR) (Negative) Influenza Type B (PCR) (Negative) RSV RNA Qual (PCR) (Negative) SARS-CoV-2 RNA (RT-PCR) (Negative) 08/07/22 08/07/22 08/07/22 Range/Units 14:43 14:43 14:43 WBC 5.1 (4.8-10.8) X10*3/uL RBC 4.27 L (4.60-5.80) X10*6/uL Hgb 12.8 L (14.0-18.0) g/dl Hct 38.3 L (42.0-52.0) % MCV 89.7 (80.0-98.0) fL MCH 30.0 (27.0-33.0) pg MCHC 33.4 (31.0-36.0) g/dl RDW 12.3 (11.0-16.0) % Plt Count TNP (160-400) X10*3/uL MPV 11.3 (9.4-12.4) fL Immature Gran % (Auto) 0.4 (0.0-0.4) % Neut % (Auto) 65.8 (45-73) % Lymph % (Auto) 22.7 (20-40) % Centre % (Auto) 6.8 (2-11) % Eos % (Auto) 3.7 (0-4) % Baso % (Auto) 0.6 (0-2) % Lymph # (Auto) 1.2 (1.2-4.9) X10*3/uL Centre # (Auto) 0.4 (0.1-1.2) X10*3/uL Eos # (Auto) 0.2 (0.0-0.4) X10*3/uL Baso # (Auto) 0.0 (0.0-0.2) X10*3/uL Abs Immat Gran (auto) 0.02 (0.00-0.03) X10*3/uL Absolute Neuts (auto) 3.4 (2.0-8.3) x10*3/uL Absolute Nucleated RBC 0.000 (0.0-0.012) X10*3/uL Nucleated RBC % (auto) 0.0 (0.0-0.2) /100WBC Sodium 141 (135-145) mmol/L Potassium 3.5 D (3.3-5.1) mmol/L Chloride 101 (96-108) mmol/L Carbon Dioxide 30 H (22-29) mmol/L Anion Gap 14 (12-20) BUN 28 H (9-16) mg/dL Creatinine 1.00 (0.5-1.4) mg/dL Estim Creat Clear Calc 66.5 Estimated GFR > 60 Random Glucose 196 H (60-115) mg/dL Calcium 9.6 (8.4-10.2) mg/dL Total Bilirubin 0.8 (0.0-1.0) mg/dL Direct Bilirubin 0.3 (0.0-0.5) mg/dL AST 21 (5-37) U/L ALT 13 (0-40) U/L Alkaline Phosphatase 58 (39-117) U/L Troponin I High Sens 4.1 (<3.5-35.0) ng/L Total Protein 6.6 (6.5-8.0) g/dL Albumin 4.1 (3.5-5.0) g/dL Urine Color Urine Appearance Urine pH (5.0-9.0) Ur Specific [place] (1.005-1.025) Urine Protein (Neg-Trace) mg/dL Urine Glucose (UA) (Negative) mg/dL Urine Ketones (Negative) mg/dL Urine Blood (Negative) Urine Nitrite (Negative) Ur Leukocyte Esterase (Negative) Influenza Type A (PCR) (Negative) Influenza Type B (PCR) (Negative) RSV RNA Qual (PCR) (Negative) SARS-CoV-2 RNA (RT-PCR) (Negative) 08/07/22 08/08/22 Range/Units 16:33 09:10 WBC (4.8-10.8) X10*3/uL RBC (4.60-5.80) X10*6/uL Hgb (14.0-18.0) g/dl Hct (42.0-52.0) % MCV (80.0-98.0) fL MCH (27.0-33.0) pg MCHC (31.0-36.0) g/dl RDW (11.0-16.0) % Plt Count (160-400) X10*3/uL MPV (9.4-12.4) fL Immature Gran % (Auto) (0.0-0.4) % Neut % (Auto) (45-73) % Lymph % (Auto) (20-40) % Centre % (Auto) (2-11) % Eos % (Auto) (0-4) % Baso % (Auto) (0-2) % Lymph # (Auto) (1.2-4.9) X10*3/uL Centre # (Auto) (0.1-1.2) X10*3/uL Eos # (Auto) (0.0-0.4) X10*3/uL Baso # (Auto) (0.0-0.2) X10*3/uL Abs Immat Gran (auto) (0.00-0.03) X10*3/uL Absolute Neuts (auto) (2.0-8.3) x10*3/uL Absolute Nucleated RBC (0.0-0.012) X10*3/uL Nucleated RBC % (auto) (0.0-0.2) /100WBC Sodium (135-145) mmol/L Potassium (3.3-5.1) mmol/L Chloride (96-108) mmol/L Carbon Dioxide (22-29) mmol/L Anion Gap (12-20) BUN (9-16) mg/dL Creatinine (0.5-1.4) mg/dL Estim Creat Clear Calc Estimated GFR Random Glucose (60-115) mg/dL Calcium (8.4-10.2) mg/dL Total Bilirubin (0.0-1.0) mg/dL Direct Bilirubin (0.0-0.5) mg/dL AST (5-37) U/L ALT (0-40) U/L Alkaline Phosphatase (39-117) U/L Troponin I High Sens 3.6 (<3.5-35.0) ng/L Total Protein (6.5-8.0) g/dL Albumin (3.5-5.0) g/dL Urine Color Urine Appearance Urine pH (5.0-9.0) Ur Specific [place] (1.005-1.025) Urine Protein (Neg-Trace) mg/dL Urine Glucose (UA) (Negative) mg/dL Urine Ketones (Negative) mg/dL Urine Blood (Negative) Urine Nitrite (Negative) Ur Leukocyte Esterase (Negative) Influenza Type A (PCR) NEGATIVE (Negative) Influenza Type B (PCR) NEGATIVE (Negative) RSV RNA Qual (PCR) NEGATIVE (Negative) SARS-CoV-2 RNA (RT-PCR) NEGATIVE (Negative) <ANEL Ashton - Last Filed: 08/10/22 08:40> Lab Results 08/05/22 08/05/22 08/05/22 Range/Units 09:51 09:51 13:09 WBC 6.9 (4.8-10.8) X10*3/uL RBC 4.19 L (4.60-5.80) X10*6/uL Hgb 12.5 L (14.0-18.0) g/dl Hct 37.1 L (42.0-52.0) % MCV 88.5 (80.0-98.0) fL MCH 29.8 (27.0-33.0) pg MCHC 33.7 (31.0-36.0) g/dl RDW 12.4 (11.0-16.0) % Plt Count 188 (160-400) X10*3/uL MPV 9.3 L (9.4-12.4) fL Immature Gran % (Auto) 0.4 (0.0-0.4) % Neut % (Auto) 77.2 H (45-73) % Lymph % (Auto) 11.9 L (20-40) % Centre % (Auto) 8.9 (2-11) % Eos % (Auto) 1.2 (0-4) % Baso % (Auto) 0.4 (0-2) % Lymph # (Auto) 0.8 L (1.2-4.9) X10*3/uL Centre # (Auto) 0.6 (0.1-1.2) X10*3/uL Eos # (Auto) 0.1 (0.0-0.4) X10*3/uL Baso # (Auto) 0.0 (0.0-0.2) X10*3/uL Abs Immat Gran (auto) 0.03 (0.00-0.03) X10*3/uL Absolute Neuts (auto) 5.3 (2.0-8.3) x10*3/uL Absolute Nucleated RBC 0.000 (0.0-0.012) X10*3/uL Nucleated RBC % (auto) 0.0 (0.0-0.2) /100WBC Sodium 139 (135-145) mmol/L Potassium 4.5 (3.3-5.1) mmol/L Chloride 102 (96-108) mmol/L Carbon Dioxide 27 (22-29) mmol/L Anion Gap 15 (12-20) BUN 23 H (9-16) mg/dL Creatinine 1.03 (0.5-1.4) mg/dL Estim Creat Clear Calc 64.5 Estimated GFR > 60 Random Glucose 108 (60-115) mg/dL Calcium 9.7 (8.4-10.2) mg/dL Total Bilirubin 1.3 H (0.0-1.0) mg/dL Direct Bilirubin (0.0-0.5) mg/dL AST 18 (5-37) U/L ALT 11 (0-40) U/L Alkaline Phosphatase 61 (39-117) U/L Troponin I High Sens (<3.5-35.0) ng/L Total Protein 6.5 (6.5-8.0) g/dL Albumin 4.1 (3.5-5.0) g/dL Urine Color Yellow Urine Appearance Clear Urine pH 5.0 (5.0-9.0) Ur Specific [place] 1.015 (1.005-1.025) Urine Protein Negative (Neg-Trace) mg/dL Urine Glucose (UA) Negative (Negative) mg/dL Urine Ketones 15 (Negative) mg/dL Urine Blood Negative (Negative) Urine Nitrite Negative (Negative) Ur Leukocyte Esterase Negative (Negative) Influenza Type A (PCR) (Negative) Influenza Type B (PCR) (Negative) RSV RNA Qual (PCR) (Negative) SARS-CoV-2 RNA (RT-PCR) (Negative) 08/07/22 08/07/22 08/07/22 Range/Units 14:43 14:43 14:43 WBC 5.1 (4.8-10.8) X10*3/uL RBC 4.27 L (4.60-5.80) X10*6/uL Hgb 12.8 L (14.0-18.0) g/dl Hct 38.3 L (42.0-52.0) % MCV 89.7 (80.0-98.0) fL MCH 30.0 (27.0-33.0) pg MCHC 33.4 (31.0-36.0) g/dl RDW 12.3 (11.0-16.0) % Plt Count TNP (160-400) X10*3/uL MPV 11.3 (9.4-12.4) fL Immature Gran % (Auto) 0.4 (0.0-0.4) % Neut % (Auto) 65.8 (45-73) % Lymph % (Auto) 22.7 (20-40) % Centre % (Auto) 6.8 (2-11) % Eos % (Auto) 3.7 (0-4) % Baso % (Auto) 0.6 (0-2) % Lymph # (Auto) 1.2 (1.2-4.9) X10*3/uL Centre # (Auto) 0.4 (0.1-1.2) X10*3/uL Eos # (Auto) 0.2 (0.0-0.4) X10*3/uL Baso # (Auto) 0.0 (0.0-0.2) X10*3/uL Abs Immat Gran (auto) 0.02 (0.00-0.03) X10*3/uL Absolute Neuts (auto) 3.4 (2.0-8.3) x10*3/uL Absolute Nucleated RBC 0.000 (0.0-0.012) X10*3/uL Nucleated RBC % (auto) 0.0 (0.0-0.2) /100WBC Sodium 141 (135-145) mmol/L Potassium 3.5 D (3.3-5.1) mmol/L Chloride 101 (96-108) mmol/L Carbon Dioxide 30 H (22-29) mmol/L Anion Gap 14 (12-20) BUN 28 H (9-16) mg/dL Creatinine 1.00 (0.5-1.4) mg/dL Estim Creat Clear Calc 66.5 Estimated GFR > 60 Random Glucose 196 H (60-115) mg/dL Calcium 9.6 (8.4-10.2) mg/dL Total Bilirubin 0.8 (0.0-1.0) mg/dL Direct Bilirubin 0.3 (0.0-0.5) mg/dL AST 21 (5-37) U/L ALT 13 (0-40) U/L Alkaline Phosphatase 58 (39-117) U/L Troponin I High Sens 4.1 (<3.5-35.0) ng/L Total Protein 6.6 (6.5-8.0) g/dL Albumin 4.1 (3.5-5.0) g/dL Urine Color Urine Appearance Urine pH (5.0-9.0) Ur Specific [place] (1.005-1.025) Urine Protein (Neg-Trace) mg/dL Urine Glucose (UA) (Negative) mg/dL Urine Ketones (Negative) mg/dL Urine Blood (Negative) Urine Nitrite (Negative) Ur Leukocyte Esterase (Negative) Influenza Type A (PCR) (Negative) Influenza Type B (PCR) (Negative) RSV RNA Qual (PCR) (Negative) SARS-CoV-2 RNA (RT-PCR) (Negative) 08/07/22 08/08/22 Range/Units 16:33 09:10 WBC (4.8-10.8) X10*3/uL RBC (4.60-5.80) X10*6/uL Hgb (14.0-18.0) g/dl Hct (42.0-52.0) % MCV (80.0-98.0) fL MCH (27.0-33.0) pg MCHC (31.0-36.0) g/dl RDW (11.0-16.0) % Plt Count (160-400) X10*3/uL MPV (9.4-12.4) fL Immature Gran % (Auto) (0.0-0.4) % Neut % (Auto) (45-73) % Lymph % (Auto) (20-40) % Centre % (Auto) (2-11) % Eos % (Auto) (0-4) % Baso % (Auto) (0-2) % Lymph # (Auto) (1.2-4.9) X10*3/uL Centre # (Auto) (0.1-1.2) X10*3/uL Eos # (Auto) (0.0-0.4) X10*3/uL Baso # (Auto) (0.0-0.2) X10*3/uL Abs Immat Gran (auto) (0.00-0.03) X10*3/uL Absolute Neuts (auto) (2.0-8.3) x10*3/uL Absolute Nucleated RBC (0.0-0.012) X10*3/uL Nucleated RBC % (auto) (0.0-0.2) /100WBC Sodium (135-145) mmol/L Potassium (3.3-5.1) mmol/L Chloride (96-108) mmol/L Carbon Dioxide (22-29) mmol/L Anion Gap (12-20) BUN (9-16) mg/dL Creatinine (0.5-1.4) mg/dL Estim Creat Clear Calc Estimated GFR Random Glucose (60-115) mg/dL Calcium (8.4-10.2) mg/dL Total Bilirubin (0.0-1.0) mg/dL Direct Bilirubin (0.0-0.5) mg/dL AST (5-37) U/L ALT (0-40) U/L Alkaline Phosphatase (39-117) U/L Troponin I High Sens 3.6 (<3.5-35.0) ng/L Total Protein (6.5-8.0) g/dL Albumin (3.5-5.0) g/dL Urine Color Urine Appearance Urine pH (5.0-9.0) Ur Specific [place] (1.005-1.025) Urine Protein (Neg-Trace) mg/dL Urine Glucose (UA) (Negative) mg/dL Urine Ketones (Negative) mg/dL Urine Blood (Negative) Urine Nitrite (Negative) Ur Leukocyte Esterase (Negative) Influenza Type A (PCR) NEGATIVE (Negative) Influenza Type B (PCR) NEGATIVE (Negative) RSV RNA Qual (PCR) NEGATIVE (Negative) SARS-CoV-2 RNA (RT-PCR) NEGATIVE (Negative) <Santo Velarde MD - Last Filed: 08/11/22 16:12> Lab Results 08/05/22 08/05/22 08/05/22 Range/Units 09:51 09:51 13:09 WBC 6.9 (4.8-10.8) X10*3/uL RBC 4.19 L (4.60-5.80) X10*6/uL Hgb 12.5 L (14.0-18.0) g/dl Hct 37.1 L (42.0-52.0) % MCV 88.5 (80.0-98.0) fL MCH 29.8 (27.0-33.0) pg MCHC 33.7 (31.0-36.0) g/dl RDW 12.4 (11.0-16.0) % Plt Count 188 (160-400) X10*3/uL MPV 9.3 L (9.4-12.4) fL Immature Gran % (Auto) 0.4 (0.0-0.4) % Neut % (Auto) 77.2 H (45-73) % Lymph % (Auto) 11.9 L (20-40) % Centre % (Auto) 8.9 (2-11) % Eos % (Auto) 1.2 (0-4) % Baso % (Auto) 0.4 (0-2) % Lymph # (Auto) 0.8 L (1.2-4.9) X10*3/uL Centre # (Auto) 0.6 (0.1-1.2) X10*3/uL Eos # (Auto) 0.1 (0.0-0.4) X10*3/uL Baso # (Auto) 0.0 (0.0-0.2) X10*3/uL Abs Immat Gran (auto) 0.03 (0.00-0.03) X10*3/uL Absolute Neuts (auto) 5.3 (2.0-8.3) x10*3/uL Absolute Nucleated RBC 0.000 (0.0-0.012) X10*3/uL Nucleated RBC % (auto) 0.0 (0.0-0.2) /100WBC Sodium 139 (135-145) mmol/L Potassium 4.5 (3.3-5.1) mmol/L Chloride 102 (96-108) mmol/L Carbon Dioxide 27 (22-29) mmol/L Anion Gap 15 (12-20) BUN 23 H (9-16) mg/dL Creatinine 1.03 (0.5-1.4) mg/dL Estim Creat Clear Calc 64.5 Estimated GFR > 60 Random Glucose 108 (60-115) mg/dL Calcium 9.7 (8.4-10.2) mg/dL Total Bilirubin 1.3 H (0.0-1.0) mg/dL Direct Bilirubin (0.0-0.5) mg/dL AST 18 (5-37) U/L ALT 11 (0-40) U/L Alkaline Phosphatase 61 (39-117) U/L Troponin I High Sens (<3.5-35.0) ng/L Total Protein 6.5 (6.5-8.0) g/dL Albumin 4.1 (3.5-5.0) g/dL Urine Color Yellow Urine Appearance Clear Urine pH 5.0 (5.0-9.0) Ur Specific [place] 1.015 (1.005-1.025) Urine Protein Negative (Neg-Trace) mg/dL Urine Glucose (UA) Negative (Negative) mg/dL Urine Ketones 15 (Negative) mg/dL Urine Blood Negative (Negative) Urine Nitrite Negative (Negative) Ur Leukocyte Esterase Negative (Negative) Influenza Type A (PCR) (Negative) Influenza Type B (PCR) (Negative) RSV RNA Qual (PCR) (Negative) SARS-CoV-2 RNA (RT-PCR) (Negative) 08/07/22 08/07/22 08/07/22 Range/Units 14:43 14:43 14:43 WBC 5.1 (4.8-10.8) X10*3/uL RBC 4.27 L (4.60-5.80) X10*6/uL Hgb 12.8 L (14.0-18.0) g/dl Hct 38.3 L (42.0-52.0) % MCV 89.7 (80.0-98.0) fL MCH 30.0 (27.0-33.0) pg MCHC 33.4 (31.0-36.0) g/dl RDW 12.3 (11.0-16.0) % Plt Count TNP (160-400) X10*3/uL MPV 11.3 (9.4-12.4) fL Immature Gran % (Auto) 0.4 (0.0-0.4) % Neut % (Auto) 65.8 (45-73) % Lymph % (Auto) 22.7 (20-40) % Centre % (Auto) 6.8 (2-11) % Eos % (Auto) 3.7 (0-4) % Baso % (Auto) 0.6 (0-2) % Lymph # (Auto) 1.2 (1.2-4.9) X10*3/uL [place] # (Auto) 0.4 (0.1-1.2) X10*3/uL Eos # (Auto) 0.2 (0.0-0.4) X10*3/uL Baso # (Auto) 0.0 (0.0-0.2) X10*3/uL Abs Immat Gran (auto) 0.02 (0.00-0.03) X10*3/uL Absolute Neuts (auto) 3.4 (2.0-8.3) x10*3/uL Absolute Nucleated RBC 0.000 (0.0-0.012) X10*3/uL Nucleated RBC % (auto) 0.0 (0.0-0.2) /100WBC Sodium 141 (135-145) mmol/L Potassium 3.5 D (3.3-5.1) mmol/L Chloride 101 (96-108) mmol/L Carbon Dioxide 30 H (22-29) mmol/L Anion Gap 14 (12-20) BUN 28 H (9-16) mg/dL Creatinine 1.00 (0.5-1.4) mg/dL Estim Creat Clear Calc 66.5 Estimated GFR > 60 Random Glucose 196 H (60-115) mg/dL Calcium 9.6 (8.4-10.2) mg/dL Total Bilirubin 0.8 (0.0-1.0) mg/dL Direct Bilirubin 0.3 (0.0-0.5) mg/dL AST 21 (5-37) U/L ALT 13 (0-40) U/L Alkaline Phosphatase 58 (39-117) U/L Troponin I High Sens 4.1 (<3.5-35.0) ng/L Total Protein 6.6 (6.5-8.0) g/dL Albumin 4.1 (3.5-5.0) g/dL Urine Color Urine Appearance Urine pH (5.0-9.0) Ur Specific [place] (1.005-1.025) Urine Protein (Neg-Trace) mg/dL Urine Glucose (UA) (Negative) mg/dL Urine Ketones (Negative) mg/dL Urine Blood (Negative) Urine Nitrite (Negative) Ur Leukocyte Esterase (Negative) Influenza Type A (PCR) (Negative) Influenza Type B (PCR) (Negative) RSV RNA Qual (PCR) (Negative) SARS-CoV-2 RNA (RT-PCR) (Negative) 08/07/22 08/08/22 Range/Units 16:33 09:10 WBC (4.8-10.8) X10*3/uL RBC (4.60-5.80) X10*6/uL Hgb (14.0-18.0) g/dl Hct (42.0-52.0) % MCV (80.0-98.0) fL MCH (27.0-33.0) pg MCHC (31.0-36.0) g/dl RDW (11.0-16.0) % Plt Count (160-400) X10*3/uL MPV (9.4-12.4) fL Immature Gran % (Auto) (0.0-0.4) % Neut % (Auto) (45-73) % Lymph % (Auto) (20-40) % Centre % (Auto) (2-11) % Eos % (Auto) (0-4) % Baso % (Auto) (0-2) % Lymph # (Auto) (1.2-4.9) X10*3/uL Centre # (Auto) (0.1-1.2) X10*3/uL Eos # (Auto) (0.0-0.4) X10*3/uL Baso # (Auto) (0.0-0.2) X10*3/uL Abs Immat Gran (auto) (0.00-0.03) X10*3/uL Absolute Neuts (auto) (2.0-8.3) x10*3/uL Absolute Nucleated RBC (0.0-0.012) X10*3/uL Nucleated RBC % (auto) (0.0-0.2) /100WBC Sodium (135-145) mmol/L Potassium (3.3-5.1) mmol/L Chloride (96-108) mmol/L Carbon Dioxide (22-29) mmol/L Anion Gap (12-20) BUN (9-16) mg/dL Creatinine (0.5-1.4) mg/dL Estim Creat Clear Calc Estimated GFR Random Glucose (60-115) mg/dL Calcium (8.4-10.2) mg/dL Total Bilirubin (0.0-1.0) mg/dL Direct Bilirubin (0.0-0.5) mg/dL AST (5-37) U/L ALT (0-40) U/L Alkaline Phosphatase (39-117) U/L Troponin I High Sens 3.6 (<3.5-35.0) ng/L Total Protein (6.5-8.0) g/dL Albumin (3.5-5.0) g/dL Urine Color Urine Appearance Urine pH (5.0-9.0) Ur Specific [place] (1.005-1.025) Urine Protein (Neg-Trace) mg/dL Urine Glucose (UA) (Negative) mg/dL Urine Ketones (Negative) mg/dL Urine Blood (Negative) Urine Nitrite (Negative) Ur Leukocyte Esterase (Negative) Influenza Type A (PCR) NEGATIVE (Negative) Influenza Type B (PCR) NEGATIVE (Negative) RSV RNA Qual (PCR) NEGATIVE (Negative) SARS-CoV-2 RNA (RT-PCR) NEGATIVE (Negative) <ANEL Bernabe - Last Filed: 08/15/22 13:44> Independent Interpretation I performed an independent interpretation of an: Plain X-Ray ( I have personally interpreted x-ray imaging of the right knee and agree with radiologist impression.) and CT Scan <Felicita Romano CNP - Last Filed: 08/14/22 09:31> Radiology Impression Discussion of test interpretation with radiology: I have reviewed the radiologist's reading. <Felicita Romano CNP - Last Filed: 08/14/22 09:31> Radiologist Impression: CT/CT head/brain wo IV con IMPRESSION: 1.? No acute intracranial finding. 2.? No acute maxillofacial fracture. Mild right premaxillary soft tissue swelling. 3.? No acute fracture or malalignment of the cervical spine. Mild degenerative change. XR/XR knee RT 3V IMPRESSION: 1.? No definite evidence for acute fracture or dislocation. 2.? Small loose bodies. ? <Felicita Romano CNP - Last Filed: 08/14/22 09:31> Attestation Attending Attestation: I reviewed ROTARY MACHINE OPERATOR/PA/Resident note, assessment and plan. I agree with the documentation, assessment and plan unless otherwise stated. <Santo Velarde MD - Last Filed: 08/11/22 16:12> Discharge Plan Discharge Clinical Impression: Fall, Contusion of face, Contusion of knee, right <Felicita Romano CNP - Last Filed: 08/14/22 09:31> Patient Disposition: Still a Patient <Felicita Romano CNP - Last Filed: 08/14/22 09:31> Additional Instructions: you were evaluated in the emergency department after a fall. We obtained CT imaging of your head/ face, and x-ray imaging of your right knee, all of which were normal. There is no evidence that you have a urinary tract infection. And your blood work today was overall normal. You can take Tylenol 500 mg, 2 tablets (1,000mg) every 4-6 hours as needed for pain, but not to exceed 3 doses daily (3,000mg).? Follow-up with your primary care provider. <Felicita Romano CNP - Last Filed: 08/14/22 09:31> Prescriptions: No Action multivitamin Tablet 1 tab PO DAILY donepezil [Aricept] 5 mg tablet 5 mg PO DAILY Qty: 30 0RF haloperidol 0.5 mg tablet 0.5 mg PO BID Qty: 60 2RF <Felicita Romano CNP - Last Filed: 08/14/22 09:31> Referrals: Physician,Unknown J [Primary Care Provider] - <Felicita Romano CNP - Last Filed: 08/14/22 09:31>
[2022-08-05 09:55] LABS: MANUAL DIFF FLAG NO
[2022-08-05 10:03] LABS: Basophils Percent Auto 0.4 % (0-2); Eosinophils Absolute Auto 0.1 X10*3/uL (0.0-0.4); Eosinophils Percent Auto 1.2 % (0-4); Hematocrit 37.1 % (42.0-52.0); Hemoglobin 12.5 g/dl (14.0-18.0); Imm Gran Abs Auto 0.03 X10*3/uL (0.00-0.03); Imm Gran Pct Auto 0.4 % (0.0-0.4); Lymphocytes Absolute Auto 0.8 X10*3/uL (1.2-4.9); Lymphocytes Percent Auto 11.9 % (20-40); Mean Corpuscular HGB Conc 33.7 g/dl (31.0-36.0); Mean Corpuscular Hemoglobin 29.8 pg (27.0-33.0); Mean Corpuscular Volume 88.5 fL (80.0-98.0); Mean Platelet Volume 9.3 fL (9.4-12.4); Monocytes Absolute Auto 0.6 X10*3/uL (0.1-1.2); Monocytes Percent Auto 8.9 % (2-11); Neutrophils Absolute Auto 5.3 x10*3/uL (2.0-8.3); Neutrophils Percent Auto 77.2 % (45-73); Platelet Count 188 X10*3/uL (160-400); Red Blood Count 4.19 X10*6/uL (4.60-5.80); Red Cell Distribution Width 12.4 % (11.0-16.0); White Blood Count 6.9 X10*3/uL (4.8-10.8)
[2022-08-05 10:22] LABS: Alanine Aminotransferase 11 U/L (0-40); Albumin Level 4.1 g/dL (3.5-5.0); Alkaline Phosphatase 61 U/L (39-117); Anion Gap 15 (12-20); Aspartate Amino Transferase 18 U/L (5-37); Bilirubin Total 1.3 mg/dL (0.0-1.0); Blood Urea Nitrogen 23 mg/dL (9-16); Calcium 9.7 mg/dL (8.4-10.2); Carbon Dioxide 27 mmol/L (22-29); Chloride 102 mmol/L (96-108); Creatinine Clr Calc Pharmacy 64.5; Estimated Glomerular Filt Rate > 60; Glucose Random 108 mg/dL (60-115); Potassium 4.5 mmol/L (3.3-5.1); Sodium 139 mmol/L (135-145); Total Protein 6.5 g/dL (6.5-8.0)
[2022-08-05 13:18] LABS: Appearance Urine Clear; Color Urine Yellow; Glucose Urine UA Negative (Negative); Leukocyte Esterase Urine Negative (Negative); Nitrite Urine Negative (Negative); Specific Gravity - Urine 1.015 (1.005-1.025); Urine Blood Negative (Negative); Urine Ketones 15 mg/dL (Negative); Urine Protein Negative (Neg-Trace)
[2022-08-05 13:36] VITALS: BP 141/75; PULSE 73; RESP 15; TEMP 36.6; O2SAT 95
--- NOTE | 2022-08-05 16:41 | PC.NURSE ---
discussion with rn and case management. call placed to [facility] for wellness check on SO.
--- NOTE | 2022-08-05 17:07 | PC.NURSE ---
Elder abuse filed today 08/05/22 at 1707 (Intake ID [id number]). Copy of form in chart
--- NOTE | 2022-08-05 17:37 | PC.NURSE ---
RADHA was unable to make contact with the SO.
[2022-08-05 18:58] VITALS: BP 138/74; PULSE 78; RESP 16; TEMP 36.8; O2SAT 96
--- NOTE | 2022-08-05 19:20 | PHA.MEDREC ---
Pharmacy Consult ? Medication Reconciliation Pharmacy has completed the medication reconciliation.
--- NOTE | 2022-08-05 20:52 | MHC.CM.ED ---
Addendum entered by Helen Harris 08/05/22 22:28: CM filed with [facility] with regards to unsafe discharge and concerns if S.O. can safely care for patient and make good decisions. Intake #[id number] Original Note: CM received consult for this patient secondary to RN being unable to reach S.O. Elzbieta Waggoner ([phone]), despite several calls made by her. RN called [facility] for well check at home. Per [facility], there was no one home and house was dark. CM called Elzbieta at 1830. Call went straight to voice mail. Message left to call KAMALJIT to discuss patient. CM called contact from last admission, pt cousin Reza Frazier ([phone]). CM had lengthy conversation with Rzea about safety concerns for this patient and worry that messages were left for Elzbieta without response. When patient was in ED in June, Elzbieta did not return calls for 3 days and finally return call to Marissa Palacios after being contacted by Reza. Patient was found to NOT have capacity on his last admission. NANCI filed Elder neglect with SS on 07/04/2022 and received written notification on 07/06/2022 that the report was screened in and that the Harvest Worker Field Crop is Lito Booker ([phone]). balance staff staker today filed with [facility] when unable to reach Elzbieta after repeated attempts. Reza tells NANCI he has left several messages and emails with Elzbieta this week to find out how his virtual doctors appointment and her appointment with an gold miner blasting to complete MH application went. Reza tells NANCI he speaks to Juan José and to her weekly at least. Elzbieta did not return any calls or emails this week. Reza will call Elzbieta and email her to contact [facility] CM KAMALJIT. Pt arrived to [facility] via BLS after a fall near [facility] on [address] in [place] this morning and arrived at [facility] at 0915 today. It is unclear to this database report writer who called EMS. According to EMS, Elzbieta left area when ambulance arrived. Elzbieta called ED estrella at 2044. Was not alarmed nor did she ask how patient was. When NANCI asked why they were walking on such a busy road, without sidewalks much of the way, she responded that she needed to get his Haldol and she could not find her telephone to call an Uber, so they walked. The walk was approximately 3-4 miles[address] not drive and they do not have a car. When asked why she did not accompany the ambulance, especially since Juan José has dementia, she responded that she did not think she could. When asked why she did not call to check on him, she stated she could not find her phone, but tells CM she just found it at home before she called CM. directly asked Elzbieta if she could care for this patient safely at home. Elzbieta responded that she could and that she was working with an gold miner blasting in [place] to complete the MH application so patient could be placed in LTC eventually. NANCI expressed my concerns with Elzbieta not returning our calls today, as she did not return calls for 3 days when patient was here in June. Elzbieta tells that she didn't return calls last admission because she thought we could place him easier. NANCI told Elzbieta that I would call her back after I spoke with my [facility] CM spoke with Marissa Palacios and updated her with above information. Will discuss with provider. Will keep patient overnight. CM will reach out to [facility] in the morning. Unable to provide safe discharge at this time. Marcia TAM aware and agrees with plan.
[2022-08-05 21:23] VITALS: BP 133/74; PULSE 67; RESP 16; TEMP 36.8; O2SAT 98
--- NOTE | 2022-08-05 22:07 | PC.NURSE ---
pt resting on stretcher. pt attempting to get out of bed. pt easily redirectable. pt calm and cooperative
--- NOTE | 2022-08-05 23:15 | PC.NURSE ---
pt moved into ed 22. pt placed in hospital bed. camera put in place as well as bed alarm as pt is high fall risk and continues to get out of bed. pt resting at this time
--- NOTE | 2022-08-06 04:23 | PC.NURSE ---
pt able to sleep at this time. rr 14 nonlabored
[2022-08-06 10:28] VITALS: BP 150/78; PULSE 68; RESP 18; TEMP 36.6; O2SAT 98
--- NOTE | 2022-08-06 11:59 | PC.NURSE ---
s.o. reached out to RN looking for update, case management notified via [employer]. Elzbieta Waggoner's cell: [phone]
--- NOTE | 2022-08-06 12:00 | PC.NURSE ---
assumed care of pt at 1100, pt resting awake in bed, resp even and unlabored.
--- NOTE | 2022-08-06 14:03 | MHC.CM.PN ---
Male Patient s/p fall with open protective services case. CM called Protective services; which is closed until Monday. Instruction via to call Protective Hotline for assistance. T/W spoke with intake. Intake stated that they can not give guidance on open cases. Follow up will be with Protective services on Monday.
--- NOTE | 2022-08-06 14:30 | PC.NURSE ---
pt ate 100% of lunch - assisted with cutting up food, pt ate independently once food was chopped.
[2022-08-06 16:44] VITALS: BP 150/78; PULSE 68; O2SAT 98
[2022-08-06] MEDS: LORazepam 0.5 MG TABLET PO (20:52)
[2022-08-06 21:02] VITALS: BP 133/78; PULSE 74; RESP 16; TEMP 36.9; O2SAT 98
[2022-08-06] MEDS: HaloperidoL 0.5 MG TABLET PO (21:30)
--- NOTE | 2022-08-07 | MHC.EDTECH ---
0000 rounding done ,pt awake and in bed .
--- NOTE | 2022-08-07 02:00 | MHC.EDTECH ---
0200 rounding done ,pt sleeping .
[2022-08-07 06:00] VITALS: BP 158/78; PULSE 76; RESP 16; TEMP 36.9; O2SAT 97
--- NOTE | 2022-08-07 06:00 | MHC.EDTECH ---
0600 rounding done and vitals sign taken ,pt did not void all night ,said he does not need to void .
--- NOTE | 2022-08-07 06:32 | PC.NURSE ---
This nurse provided a pitch of water to pt to keep him hydrated.
--- NOTE | 2022-08-07 07:25 | PC.NURSE ---
Assumed care of pt. Meal tray provided. Pt asleep resting comfortably.
[2022-08-07] MEDS: Multivitamin TABLET 1 TAB PO (08:42)
[2022-08-07] MEDS: Donepezil HCl 5 MG TABLET PO (09:01)
[2022-08-07] MEDS: HaloperidoL 0.5 MG TABLET PO ×2 (09:01→20:40)
--- NOTE | 2022-08-07 14:23 | ECG_ITS ---
Test Reason : CHEST PAIN Blood Pressure : / mmHG Vent. Rate : 066 BPM Atrial Rate : 066 BPM P-R Int : 160 ms QRS Dur : 100 ms QT Int : 420 ms P-R-T Axes : 078 045 050 degrees QTc Int : 440 ms Normal sinus rhythm Normal ECG When compared with ECG of 19-JUN-2022 08:39, No significant change was found Referred By: Stephanie Pop Electronically Signed By:Riki Pfeiffer
[2022-08-07 14:26] VITALS: BP 120/65; PULSE 65; RESP 19; O2SAT 99
--- NOTE | 2022-08-07 14:42 | PC.NURSE ---
bryon rn covering break, pt c/o l sided cp. states he's had it for about an hour and started before he ate lunch and has continued, ekg done and normal without ectopy, vitals stable, skin wpd, nad, Summer CNC OPERATOR PROGRAMMER informed and Ingrid MCKINNEY informed, plan for troponins x 2
--- NOTE | 2022-08-07 15:00 | PC.NURSE ---
Pt reported chest pain for the last hour. EMPLOYMENT CASE MANAGER notified, ekg, chest x-ray and labs obtained
[2022-08-07 15:04] LABS: MANUAL DIFF FLAG NO
[2022-08-07 15:13] LABS: Basophils Percent Auto 0.6 % (0-2); PLT CLUMP 1; SCAN SMEAR FLAG 1
[2022-08-07 15:14] LABS: Eosinophils Absolute Auto 0.2 X10*3/uL (0.0-0.4); Eosinophils Percent Auto 3.7 % (0-4); Hematocrit 38.3 % (42.0-52.0); Hemoglobin 12.8 g/dl (14.0-18.0); Imm Gran Abs Auto 0.02 X10*3/uL (0.00-0.03); Imm Gran Pct Auto 0.4 % (0.0-0.4); Lymphocytes Absolute Auto 1.2 X10*3/uL (1.2-4.9); Lymphocytes Percent Auto 22.7 % (20-40); Mean Corpuscular HGB Conc 33.4 g/dl (31.0-36.0); Mean Corpuscular Volume 89.7 fL (80.0-98.0); Mean Platelet Volume 11.3 fL (9.4-12.4); Monocytes Absolute Auto 0.4 X10*3/uL (0.1-1.2); Monocytes Percent Auto 6.8 % (2-11); Neutrophils Absolute Auto 3.4 x10*3/uL (2.0-8.3); Neutrophils Percent Auto 65.8 % (45-73); Red Blood Count 4.27 X10*6/uL (4.60-5.80); Red Cell Distribution Width 12.3 % (11.0-16.0)
[2022-08-07 15:22] VITALS: BP 112/57; PULSE 72; TEMP 36.2; O2SAT 97
[2022-08-07 15:25] LABS: Alanine Aminotransferase 13 U/L (0-40); Albumin Level 4.1 g/dL (3.5-5.0); Alkaline Phosphatase 58 U/L (39-117); Anion Gap 14 (12-20); Aspartate Amino Transferase 21 U/L (5-37); Bilirubin Direct 0.3 mg/dL (0.0-0.5); Bilirubin Total 0.8 mg/dL (0.0-1.0); Blood Urea Nitrogen 28 mg/dL (9-16); Calcium 9.6 mg/dL (8.4-10.2); Carbon Dioxide 30 mmol/L (22-29); Chloride 101 mmol/L (96-108); Creatinine Clr Calc Pharmacy 66.5; Estimated Glomerular Filt Rate > 60; Glucose Random 196 mg/dL (60-115); Potassium 3.5 mmol/L (3.3-5.1); Sodium 141 mmol/L (135-145); Total Protein 6.6 g/dL (6.5-8.0)
[2022-08-07 15:32] LABS: Troponin-I High Sensitivity 4.1 ng/L (<3.5-35.0)
[2022-08-07 15:34] LABS: White Blood Count 5.1 X10*3/uL (4.8-10.8)
--- NOTE | 2022-08-07 16:35 | PC.NURSE ---
Workup for CP normal, will do another repeat troponin
[2022-08-07 17:17] LABS: Troponin-I High Sensitivity 3.6 ng/L (<3.5-35.0)
[2022-08-08 02:00] VITALS: BP 115/60; PULSE 70; RESP 16; TEMP 36.3; O2SAT 96
[2022-08-08 06:00] VITALS: BP 128/71; PULSE 60; RESP 15; TEMP 36.7; O2SAT 97
--- NOTE | 2022-08-08 06:30 | MHC.EDTECH ---
Pt 1x assisted with repositioning in bed. Call horton in reach
--- NOTE | 2022-08-08 07:00 | PC.NURSE ---
Assumed care of patient at this time.
[2022-08-08] MEDS: Multivitamin TABLET 1 TAB PO (09:20)
[2022-08-08] MEDS: Acetaminophen 325 MG TABLET 650 MG PO (09:20)
[2022-08-08] MEDS: Donepezil HCl 5 MG TABLET PO (09:21)
[2022-08-08] MEDS: HaloperidoL 0.5 MG TABLET PO ×2 (09:21→20:34)
[2022-08-08 09:58] LABS: Influenza A PCR NEGATIVE (Negative); Influenza B PCR NEGATIVE (Negative); Resp Syncy Virus RNA Qual PCR NEGATIVE (Negative); SARS COV2 PCR INHOUSE NEGATIVE (Negative)
--- NOTE | 2022-08-08 10:03 | PC.NURSE ---
Addendum entered by Mya Osei RN 08/08/22 10:51: Staff from [facility] , can be reached at [phone] ext. [phone]. Original Note: Elder services at bedside speaking with patient at this time.
--- NOTE | 2022-08-08 12:30 | MHC.CM.ED ---
Patient remains in ER overflow. Physical therapy eval completed. Short term rehab is recommended. Patient does not have a HCP on file at [facility]. T/W checked with [facility]. No HCP on file there. iLto from [facility] came to [facility] to visit with patient. Lito doesn't feel patient can safely return home at this time. Elzbieta was supposed to have an appointment on 08/04 with a wire basket maker in [place] to complete a [email or web address] application. Lito is unsure of the wire basket maker's name and if this happened. [facility] does not have a HCP on file. Marissa Palacios CM director aware and will start necessary paperwork for guardianship. Continue to monitor for d/c needs.
[2022-08-08 12:34] VITALS: BP 119/76; PULSE 56; RESP 17; TEMP 36.6; O2SAT 96
--- NOTE | 2022-08-08 16:39 | MHC.CM.ED ---
Addendum entered by Helen Harris 08/08/22 18:44: Elzbieta Waggoner at bedside. States she is his and they were in Apr at [facility] by wrapper hands sprayer. Visiting with Juan José. Juan José agrees that they are . Elzbieta is very pleasant and respectful. States she would like to be Juan José's guardian. Explained that CM would relay that information up the chain of command. Elzbieta shares that there are some issues with their apartment and people are coming tomorrow to look at it at 9am. States she will then call [facility] and speak with her manager cosmetics. Elzbieta is aware that she can call with questions/concerns. Addendum entered by Helen Harris 08/08/22 17:21: CM received a call from Reza Frazier, cousin of Juan José Pari, who was asking for clarification of events, as Elzbieta had spoken to him and was distressed that Juan José was not being discharge home. Reza states he will speak with Elzbieta. He will encourage her to keep showing interest in Juan José's care and understands that this matter has been escalated up the chain of command, and that had no power to make these decisions regarding where Juan José would live. Explained that RN is a mandated dance professor and had no choice but to report the incident and [facility] decides what actions to take. Explained that [facility] does not feel the Juan José has a safe discharge. Explained that [facility] will complete paperwork for guardianship. Explained that Elzbieta should contact [facility] Lito Booker and speak with him. Original Note: NANCI received a telephone call from Elzbieta Waggoner at 1520. Elzbieta wanted to explain what had happened on Monday. NANCI explained that Elzbieta had spoken to me on Monday and I was aware of the situation. Elzbieta is distressed that she doesn't know when Juan José will be coming home. NANCI explained to Elzbieta several times that Lito Booker from [facility] Met with Juan José today and does not recommend that Juan José be discharged to home. Elzbieta is upset by this news. NANCI explained that [facility] would pursue guardianship in [place] behalf, as he is not capable of making medical decisions for himself and there is no HCP. Elzbieta agrees that there is no HCP and states she was working with an real estate associate attorney regarding being his medical billing coder. NANCI explained that only Juan José can complete the HCP and since he has been deemed incapable of making medical decisions on 07/05/22, he cannot complete the HCP. CM explained that director will complete appropriate paperwork for guardianship and submit it to the real estate associate attorney. CM explained that the real estate associate attorney's would be in touch with her and a court date will be sent. Explained several times that CM does not have control of this process and that it could take weeks. Elzbieta did not feel that CM was being very helpful. Elzbieta asked if it would be helpful if she called and if she continued with the MH application. CM explained that she should continue demonstrating her concerns and willingness to appropriately care for Juan José. NANCI again explained that she had no control over this matter, as it had been escalated to the chain of command. Elzbieta states she will call Lito Booker at [facility] and . She then told CM that she was hanging up, as I was not being very helpful.
[2022-08-08 18:49] VITALS: BP 148/80; PULSE 70; RESP 16; TEMP 36.3; O2SAT 98
--- NOTE | 2022-08-08 20:09 | MHC.EDTECH ---
pt amblated to BR with asst and back to bed ,his visitor left for the night,
[2022-08-08 20:56] VITALS: BP 134/68; PULSE 71; RESP 17; TEMP 36.3; O2SAT 99
--- NOTE | 2022-08-09 00:11 | PC.NURSE ---
assumed care of patient at 2300 - patient restless attempting to get out out bed, states he needs to go say rufino to his partner and that it will only take 5 minutes patient redirected back to bed multiple times by this RN and pct. patient within view of nurses station and camera in room. will CTM.
[2022-08-09 01:38] VITALS: BP 124/69; PULSE 71; RESP 16; TEMP 36.2; O2SAT 97
--- NOTE | 2022-08-09 01:39 | MHC.EDTECH ---
pt is confused seems to think he gota go see his friend, he was redirected as to what time it was,and where he was, he laid back down and is asleep now
[2022-08-09 04:41] VITALS: BP 121/71; PULSE 66; RESP 15; TEMP 36.3; O2SAT 95
--- NOTE | 2022-08-09 07:43 | PC.NURSE ---
Pt awake, doesn't want bkfst. A&O x 2.
[2022-08-09] MEDS: Donepezil HCl 5 MG TABLET PO (09:03)
[2022-08-09] MEDS: Multivitamin TABLET 1 TAB PO (09:03)
[2022-08-09] MEDS: HaloperidoL 0.5 MG TABLET PO ×2 (09:03→21:30)
--- NOTE | 2022-08-09 11:21 | PC.NURSE ---
Addendum entered by Hiro Rockwell 08/09/22 12:48: note by FAYE Bosch Original Note: assumed care of pt at 1100, pt resting quietly in chair, camera at bedside.
--- NOTE | 2022-08-09 13:45 | PC.NURSE ---
pt assisted with cutting up food, in chair eating lunch.
[2022-08-09 14:21] VITALS: BP 163/90; PULSE 81; RESP 18; TEMP 36.6; O2SAT 99
--- NOTE | 2022-08-09 14:26 | PC.NURSE ---
pt alert, oriented to person/place, ate 100% of lunch, pt remains confused and unsure of why he is in the hospital, understands that he is on a waiting list. pt urinal emptied and pt repositioned into bed, camera at bedside, bed alarmed.
--- NOTE | 2022-08-09 18:54 | PC.NURSE ---
s.o. at bedside, pt sleeping and resting quietly.
--- NOTE | 2022-08-09 22:29 | MHC.EDTECH ---
pt rounding being done. visitor present and resting with pt. prior to the start of my shift i was notified that pt didnt sleep the prior night. pt is now sleeping. pt is not going to be woken up for vitals due to lack of sleep from the other night. rn aware.
--- NOTE | 2022-08-09 22:30 | MHC.CM.ED ---
CM entered overflow unit. Pt and , Elzbieta, were asleep together in the bed. RN states that has been visiting [facility].
[2022-08-09 22:31] VITALS: RESP 18
[2022-08-10] MEDS: Acetaminophen 325 MG TABLET 650 MG PO (04:14)
[2022-08-10 06:40] VITALS: BP 90/58; PULSE 62; RESP 17; TEMP 36.2; O2SAT 97
--- NOTE | 2022-08-10 06:46 | PC.NURSE ---
Pt's hypotensive, this nurse notified provider. Pt was able to sleep all night and partner is at bedside. Pt' s HR was normal and o2 97%.
--- NOTE | 2022-08-10 08:38 | MHC.CM.ED ---
Patient remains in ER overflow. Received telephone call from Elzbieta who states she made sure patient ate breakfast and will return to [facility] between 1-2pm to bring the patient a pizza because the doesn't like the hospital food. Elzbieta wants to make sure CM understands they were walking on [address] because they were staying in a Motel on [address]. They were unable to stay in their home due to frozen pipes and mouse droppings. Elzbieta also states she has tried to call Lito Booker 10 times and I think he's avoiding my calls. T/W spoke with Lito Booker, who confirms Elzbieta called 10 times since Monday. Lito states he isn't avoiding her calls. He just hasn't had a chance to return her calls. Michelle Palacios, NANCI director has started guardianship paperwork. Continue to monitor for d/c needs.
[2022-08-10 08:47] VITALS: BP 108/58; PULSE 64; RESP 16
--- NOTE | 2022-08-10 08:47 | MHC.EDTECH ---
Rechecked pts BP due to a low BP and provider concern. Pts BP was better and provider was made aware.
[2022-08-10] MEDS: Multivitamin TABLET 1 TAB PO (08:48)
[2022-08-10] MEDS: HaloperidoL 0.5 MG TABLET PO ×2 (08:48→21:26)
[2022-08-10] MEDS: Donepezil HCl 5 MG TABLET PO (08:48)
--- NOTE | 2022-08-10 08:52 | PC.NURSE ---
IV fluid was discontinued per PA. BP was better and PA aware. pt with no IV access
[2022-08-10 11:05] VITALS: BP 126/75; PULSE 68; RESP 16
--- NOTE | 2022-08-10 11:45 | MHC.EDTECH ---
pt walked with tech to the bathroom. pt did not need any physical help while walking. tech walked along side of pt.
--- NOTE | 2022-08-10 16:46 | MHC.CM.ED ---
NANCI received a telephone call from Lito Booker from [facility] requesting follow up information to the report I filed in regards to this patient. Lito expresses concerns regarding Elzbieta Waggoner's judgment. NANCI explained that it is my impression that Elzbieta cares for her , but seems to be unable to make the best decisions for him. Lito tells CM that Elzbieta has called him many times in the past 2 days and that he would return her call. NANCI asked if Lito had spoken with Reza Frazier, cousin, as he has been very helpful and has good insight into Elzbieta and Juan José. Lito has not yet spoken with him, but does have his contact information. Lito is aware that Elzbieta has been visiting daily since Monday. Lito is also aware that Elzbieta would like to be Juan José's guardian. Guardianship process continues. CM following for discharge planning.
[2022-08-10 18:50] VITALS: BP 142/70; PULSE 68; RESP 16; TEMP 36.4
[2022-08-11 06:33] VITALS: BP 143/72; PULSE 65; RESP 17; TEMP 36.2; O2SAT 98
[2022-08-11] MEDS: Donepezil HCl 5 MG TABLET PO (08:26)
[2022-08-11] MEDS: HaloperidoL 0.5 MG TABLET PO ×2 (08:26→22:02)
[2022-08-11] MEDS: Multivitamin TABLET 1 TAB PO (08:26)
--- NOTE | 2022-08-11 11:21 | MHC.EDTECH ---
Assisted patient from bed to recliner and then back to bed. Martha Du
--- NOTE | 2022-08-11 12:07 | PC.NURSE ---
THIS RN ASSUMED CARE OF THIS PT AT 0700. PT DENIES PAIN, VSS. PT AMBULATED TO BATHROOM WITH ASSISTANCE, AT HIS BEDSIDE. SITTING IN RECLINER.
[2022-08-11 15:09] VITALS: BP 137/77; PULSE 82; O2SAT 98
[2022-08-11 22:23] VITALS: BP 129/75; PULSE 74; O2SAT 97
[2022-08-12 08:38] VITALS: BP 110/65; PULSE 75; RESP 17; TEMP 35.6; O2SAT 97
[2022-08-12] MEDS: HaloperidoL 0.5 MG TABLET PO ×2 (09:53→21:16)
[2022-08-12] MEDS: Donepezil HCl 5 MG TABLET PO (09:53)
[2022-08-12] MEDS: Multivitamin TABLET 1 TAB PO (09:53)
[2022-08-12 15:56] VITALS: BP 110/64; PULSE 73; RESP 17; TEMP 36.2; O2SAT 98
--- NOTE | 2022-08-12 17:15 | PC.NURSE ---
PT AMBULATED TO BATHROOM x3 WITH ASSISTANCE FROM THIS RN. ATE 25% OF BREAKFAST, 50% OF LUNCH. THIS RN HAS BEEN OFFERING FLUIDS THROUGHOUT THE SHIFT. PT SITTING IN RECLINER AT THIS TIME. DENIES PAIN, VSS.
[2022-08-12 20:24] VITALS: BP 140/69; PULSE 83; RESP 18; TEMP 36.4; O2SAT 99
--- NOTE | 2022-08-12 21:25 | MHC.CM.ED ---
Addendum entered by Helen Harris 08/12/22 21:30: Martin [facility] software implementation specialist this weekend [phone] Original Note: CM received an update from Martin at [facility] via telephone. Martin tells CM that he spoke with patient's Elzbieta on Monday and agrees with pursuing guardianship for this patient. Martin stated that the legal team can then make appropriate decisions for this patient's care, as he does not have capacity to make medical decisions and that Elzbieta is not making sound decisions, especially with regards to not answering her phone or returning calls the last 2 admissions. Martin was concerned that patient could be discharged to home pending guardianship proceedings. CM explained that Juan José would remain in the Over Flow unit until a safe discharge can be found. Explained that this may take some time, as LTC is the probable disposition. CM will follow for discharge planning.
--- NOTE | 2022-08-12 22:00 | PC.NURSE ---
Pt attempting to walk out unit stating I want to go downstairs , redirectable. Ambulated with staff assist around unit. Pt able to verbalize BR need. Denies any pain.
[2022-08-13 06:00] VITALS: BP 130/70; PULSE 78; RESP 16; TEMP 36.9; O2SAT 97
--- NOTE | 2022-08-13 07:25 | MHC.EDTECH ---
patient wash and clean ,bed change . patient up in recliner relaxing watching tv.
--- NOTE | 2022-08-13 08:03 | PC.NURSE ---
pt ate breakfast, walked to bathroom independently. linen changed. pt given new hospital pants. awaiting meds from pharmacy. camera remains at bedside. awaiting placement.
[2022-08-13] MEDS: Multivitamin TABLET 1 TAB PO (08:48)
[2022-08-13] MEDS: Donepezil HCl 5 MG TABLET PO (08:48)
[2022-08-13] MEDS: HaloperidoL 0.5 MG TABLET PO ×2 (08:48→20:27)
--- NOTE | 2022-08-13 14:32 | MHC.EDTECH ---
patient showered and clean. up in recliner watching tv.
[2022-08-13 14:49] VITALS: BP 105/65; PULSE 77; RESP 14; O2SAT 99
--- NOTE | 2022-08-13 18:45 | PC.NURSE ---
pt ate 100% of dinner, resting comfortably in bed.
--- NOTE | 2022-08-13 20:00 | MHC.EDTECH ---
pt asked to be repositioned in bed. pt has been resting since dinner and ate 90% of dinner.
[2022-08-13 22:54] VITALS: BP 122/54; PULSE 63; RESP 16; O2SAT 99
[2022-08-14 06:31] VITALS: BP 122/54; PULSE 72; RESP 16; TEMP 36.8; O2SAT 98
[2022-08-14] MEDS: Acetaminophen 325 MG TABLET 650 MG PO ×2 (06:36→15:07)
[2022-08-14] MEDS: Donepezil HCl 5 MG TABLET PO (08:17)
[2022-08-14] MEDS: HaloperidoL 0.5 MG TABLET PO ×2 (08:17→20:14)
[2022-08-14] MEDS: Multivitamin TABLET 1 TAB PO (08:18)
[2022-08-14 14:00] VITALS: BP 116/61; PULSE 67; RESP 12; TEMP 36.5; O2SAT 99
--- NOTE | 2022-08-14 18:36 | PC.NURSE ---
Elzbieta Waggoner called at approx 18:20 pm very upset stating her is being held against his will and you cannot hold someone past 72 hours . the stated that she checked with a accounting systems manager and he stated that was true I spoke to nursing casualty claims supervisor and she told me to contact the attending. I did not but contacted the CM Lori Valenzuela via tiger text; she will review chart in the morning and contact Elzbieta directly. Called back Elzbieta and told her that would be in contact with her in the morning. was agreeable with that.
[2022-08-14 19:35] VITALS: BP 131/67; PULSE 69; TEMP 36.4; O2SAT 99
[2022-08-15 00:24] VITALS: BP 111/65; PULSE 60; RESP 15; TEMP 36.5; O2SAT 97
--- NOTE | 2022-08-15 01:54 | MHC.EDTECH ---
Pt 1x assisted in shower with FAYE Ovalles. Pt given new hospital clothing. PT 1X assisted with changing. Pt bed and recliner linen changed.
[2022-08-15] MEDS: Acetaminophen 325 MG TABLET 650 MG PO (04:01)
[2022-08-15 06:03] VITALS: BP 138/77; PULSE 68; RESP 19; TEMP 36.1; O2SAT 97
--- NOTE | 2022-08-15 08:37 | MHC.CM.PN ---
NANCI RECEIVED A MESSAGE LAST NIGHT THAT PTS , REVA, WAS CALLING AND ASKING TO TAKE PT HOME AT THE REQUEST OF T/W, SHE WAS INFORMED SHE SHOULD CALL THIS MORNING CM SPOKE TO REVA THIS MORNING, SHE REPORTS SHE REALLY WANTS TO TAKE THE PT HOME SHE IS AWARE T/W HAS NOT BEEN FOLLOWING PTS ADMISSION SO SHE PROVIDED HISTORY SHE REPORTS PT HAS DEMENTIA AND SHE PROVIDES HIS CARE SHE SAYS THEY HAVE HAD SEVERAL PROBLEMS WITH THEIR APARTMENT SOME OF WHICH MADE IT UNINHABITABLE FOR A SHORT TIME SHE SAYS DURING THAT TIME THEY STAYED IN A [place]EL SHE ALSO DOES NOT DRIVE SO THEY USE UBERS ON THE DAY OF PTS FALL, SHE EXPLAINS, SHE HAD RUN OUT TO THE CAR WITH THE PT AND LEFT HER PHONE BEHIND, SO THEY HAD TO WALK SHE ADMITS SHE DID NOT KNOW MUCH ABOUT HOW TO MANAGE OR NAVIGATE THE SITUATION INITIALLY BUT NOW KNOWS SHE CAN CALL AND STAND UP FOR HERSELF AND PETER. SHE REPORTS THE [facility] HAS NOW BEEN CITED FOR 6 VIOLATIONS AND HAS A DEADLINE ON WHEN SHE MUST HAVE REPAIRS COMPLETED. SHE SAYS SHE WANTS TO BRING PT HOME, SHE IS WORKING WITH A MACHINE BRUSHER TO GET MH FOR THE PT AND KNOWS THAT HE WILL EVENTUALLY NEED LTC BUT FEELS SHE CAN PROVIDE HIS CARE AT THIS TIME SHE ALSO REPORTS SHE HAS ALL OF THE NECESSARY DOCUMENTS TO SHOW THE GSSS WORKER, BENJAMIN, WHICH SHE WILL DO TOMORROW NANCI INFORMED HER SHE THIS DISCUSSION WOULD NEED TO RESUME TOMORROW NOTHING COULD BE ACCOMPLISHED ON THE HOLIDAY SHE REPORTS SHE WILL CALL BACK TOMORROW
[2022-08-15] MEDS: Multivitamin TABLET 1 TAB PO (09:03)
[2022-08-15] MEDS: Donepezil HCl 5 MG TABLET PO (09:04)
[2022-08-15] MEDS: HaloperidoL 0.5 MG TABLET PO ×2 (09:04→20:31)
--- NOTE | 2022-08-16 00:14 | MHC.EDTECH ---
i resumed care 11-7 shift, pt vitals were taken, he has is other half with him, he is resting quietly
[2022-08-16 00:15] VITALS: BP 121/76; PULSE 71; RESP 16; TEMP 36.7; O2SAT 96
--- NOTE | 2022-08-16 04:28 | PC.NURSE ---
Pt awakens upon verbal stimuli. A&O to self. Pt able to ambulate to BR with stand by assist. Visitor at bedside.
[2022-08-16 07:45] VITALS: BP 116/68; PULSE 70; RESP 16; TEMP 37.1; O2SAT 95
[2022-08-16] MEDS: Donepezil HCl 5 MG TABLET PO (08:13)
[2022-08-16] MEDS: Multivitamin TABLET 1 TAB PO (08:13)
[2022-08-16] MEDS: HaloperidoL 0.5 MG TABLET PO ×2 (08:13→20:27)
--- NOTE | 2022-08-16 09:00 | MHC.EDTECH ---
PT AMBULATED 1 ASSIST TO THE BATHROOM TO URINATE.
--- NOTE | 2022-08-16 16:14 | MHC.CM.ED ---
CM reviewed notes. Returned call to Martin at [facility] ([phone]). Message left. NANCI spoke with Marissa Palacios. Guardianship has been filed and pt , Elzbieta cannot take patient home. CM continues to follow for discharge planning.
[2022-08-16 19:49] VITALS: BP 128/65; PULSE 58; RESP 16; TEMP 36.6; O2SAT 99
--- NOTE | 2022-08-16 21:08 | PC.NURSE ---
this rn assisted pt to rest room at this time. pt assisted back into bed. camera in place bed alarm reset. pt requested turkey sandwich ad bernice zaki at this time.
--- NOTE | 2022-08-17 01:32 | PC.NURSE ---
pt provided with warm blanket at this time. reoriented pt to time, suggested additional sleep. bed alarm and camera in place
[2022-08-17] MEDS: Acetaminophen 325 MG TABLET 650 MG PO (03:20)
[2022-08-17 03:25] VITALS: BP 132/70; PULSE 72; RESP 16; TEMP 36.4; O2SAT 98
[2022-08-17 07:53] VITALS: BP 117/63; PULSE 67; RESP 18; TEMP 36.3; O2SAT 96
[2022-08-17] MEDS: Multivitamin TABLET 1 TAB PO (07:53)
[2022-08-17] MEDS: Donepezil HCl 5 MG TABLET PO (07:53)
[2022-08-17] MEDS: HaloperidoL 0.5 MG TABLET PO ×2 (07:53→20:14)
--- NOTE | 2022-08-17 08:02 | PC.NURSE ---
Patient alert and oriented x3. Patient denies SOB, chest pain. Reports intermittent hip pain, manageable without pain meds. Lung sounds clear throughout, +bowel sounds. Ambulated to bathroom minimal assist. VSS. Telesitter, bed alarm, and call horton within reach. All needs met at this time.
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
--- NOTE | 2022-08-17 13:17 | PC.NURSE ---
THIS RN ASSUMED CARE OF THIS PT AT 1100. PT DENIES PAIN. HE REQUESTED TO SIT IN RECLINER TO WAIT FOR HIS REVA TO BRING HIM LUNCH. HE REFUSED THE LUNCH THAT WAS SERVED. PT RESTING QUIETLY IN BED, NO APPARENT DISTRESS. PT WAS VISITED BY THE RIM FIRE CHARGER OPERATOR.
[2022-08-17 13:42] VITALS: BP 119/65; PULSE 67; RESP 19; TEMP 36.3; O2SAT 97
--- NOTE | 2022-08-17 16:00 | MHC.EDTECH ---
THIS PCT ASSUMED CARE OF PT AT 1500 ,ROUNDING DONE ,VITALS SIGN TAKEN ,PT AT BEDSIDE ,I OFFER PT SNACK ,BUT PT SAID HE WAS NOT HUNGRY .
[2022-08-17 16:20] VITALS: BP 115/61; PULSE 76; RESP 16; TEMP 36.8; O2SAT 98
--- NOTE | 2022-08-17 18:50 | MHC.EDTECH ---
patient was served dinner ,had turkey ,green beans and rice ,for dessert ,had 2 pudding and drank a bernice zaki ,after dinner pt watching television ,and is comfortable .
--- NOTE | 2022-08-17 20:00 | MHC.EDTECH ---
pt was offer to get washed up ,but patient refused .
[2022-08-17 21:35] VITALS: BP 102/55; PULSE 70; RESP 16; TEMP 36.3; O2SAT 96
--- NOTE | 2022-08-17 22:00 | MHC.EDTECH ---
2200 rounding done ,vitals sign taken ,pt sleeping .
--- NOTE | 2022-08-17 22:14 | PC.NURSE ---
Assumed care of pt. at 1900. At that time pt. sitting in bed, watching tv. Pt. medicated with night time meds and pt.now sleeping with no apparent distress. Respirations even and unlabored. Will continue to monitor.
--- NOTE | 2022-08-17 23:04 | MHC.EDTECH ---
pt was assisted with ambulation to bathroom and back to bed ,pt voided lg amount of urine .
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
[2022-08-18] MEDS: Acetaminophen 325 MG TABLET 650 MG PO (05:37)
[2022-08-18 06:00] VITALS: BP 145/85; PULSE 67; RESP 18; TEMP 36.8; O2SAT 98
--- NOTE | 2022-08-18 06:16 | PC.NURSE ---
Addendum entered by Ryanne Hilton 08/18/22 06:40: Pt. reporting pain in his legs and was medicate with tylenol PRN per AUG at 0537. Original Note: Pt. awake and restless at 0445, up and out of bed, moved to recliner and then back to bed. pt. currently sleeping, respirations even and unlabored, no distress noted. Pt. intermittently alert and oriented to place and situation. Pt. at times aware he is in the hospital and other times believing he is at home. Pt. perseverating on going out to get breakfast with Elzbieta (his ).
--- NOTE | 2022-08-18 08:56 | MHC.EDTECH ---
Patient wash and clean, walk around with staff for about 15min and now sitting on recliner relaxing.
[2022-08-18] MEDS: HaloperidoL 0.5 MG TABLET PO ×2 (08:58→20:51)
[2022-08-18] MEDS: Donepezil HCl 5 MG TABLET PO (08:58)
[2022-08-18] MEDS: Multivitamin TABLET 1 TAB PO (08:58)
--- NOTE | 2022-08-18 09:23 | PC.NURSE ---
Pt walked around with waste handling technician, strong steady gait
--- NOTE | 2022-08-18 10:17 | PC.NURSE ---
Pt ate 100% of breakfast. Slightly restless, moving back and forth between chair and bed with assistance. Video monitoring continued.
--- NOTE | 2022-08-18 10:26 | PC.NURSE ---
Pt ambulated to restroom with RN, strong steady gait and urinated.
--- NOTE | 2022-08-18 11:56 | PC.NURSE ---
pt here for a visit
[2022-08-18 14:35] VITALS: BP 133/47; PULSE 78; RESP 16; TEMP 36.2; O2SAT 99
[2022-08-18] MEDS: LORazepam 1 MG TABLET 2 MG PO (23:34)
[2022-08-18] MEDS: HaloperidoL 5 MG TABLET PO (23:34)
--- NOTE | 2022-08-18 23:35 | PC.NURSE ---
took over care from Tere Peña at 11:00pm. medicated per aug.
--- NOTE | 2022-08-18 23:36 | PC.NURSE ---
pt is alert, but confused and restless, pt has to be redirected back in bed. bed alarm and camera on for safety.
[2022-08-19 07:44] VITALS: BP 126/65; PULSE 64; RESP 16; TEMP 36.6; O2SAT 99
[2022-08-19] MEDS: Multivitamin TABLET 1 TAB PO (08:35)
[2022-08-19] MEDS: HaloperidoL 0.5 MG TABLET PO ×2 (08:35→21:06)
[2022-08-19] MEDS: Donepezil HCl 5 MG TABLET PO (08:35)
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
--- NOTE | 2022-08-19 10:11 | PC.NURSE ---
patient alert, confused. oriented to self only. restless in bed. requiring multiple reminders to stay in bed. bed alarm ad camera in place for safety
--- NOTE | 2022-08-19 14:52 | PC.NURSE ---
patient ambulated with 1 assist to window and back. family at the bedside
[2022-08-19 17:18] VITALS: BP 119/60; PULSE 64; RESP 16; TEMP 36.4; O2SAT 97
--- NOTE | 2022-08-19 18:27 | MHC.EDTECH ---
Patient hospital pants soiled after dinner, helped him into a clean pair and repositioned back in bed. Patient resting quietly.
[2022-08-20 05:21] VITALS: BP 117/62; PULSE 60; RESP 17; TEMP 37.1; O2SAT 98
[2022-08-20] MEDS: Donepezil HCl 5 MG TABLET PO (07:46)
[2022-08-20] MEDS: Multivitamin TABLET 1 TAB PO (07:46)
[2022-08-20] MEDS: HaloperidoL 0.5 MG TABLET PO ×2 (07:46→21:30)
[2022-08-20 07:57] VITALS: BP 98/61; PULSE 62; RESP 18; TEMP 36.6; O2SAT 97
--- NOTE | 2022-08-20 08:33 | PC.NURSE ---
No distress noted patient resting comfortably remains watch on camera for safety has poor safety awareness is easily redirected will CTM
--- NOTE | 2022-08-20 13:55 | PC.NURSE ---
pt ate all of lunch. Alert/Orientated. pt sitting and watching TV
[2022-08-20 14:01] VITALS: BP 96/53; PULSE 63; RESP 16; TEMP 36.3; O2SAT 96
--- NOTE | 2022-08-20 14:05 | PC.NURSE ---
pt resting. reports no pain. no apparent distress. BP soft - 96/53. VS otherwise WNL
--- NOTE | 2022-08-20 14:36 | PC.NURSE ---
pt assisted to chair
--- NOTE | 2022-08-20 16:09 | PC.NURSE ---
pt went to bathroom and is back sitting in chair. no apparent distress.
--- NOTE | 2022-08-20 16:26 | MHC.EDTECH ---
Assist transfer patient onto bed from recliner. Place table at the side of bed so patient could have personal items at reach.
[2022-08-20] MEDS: Acetaminophen 325 MG TABLET 650 MG PO (16:30)
--- NOTE | 2022-08-20 16:31 | PC.NURSE ---
pt medicated for pain in hip area with PRN tylenol
--- NOTE | 2022-08-20 17:38 | PC.NURSE ---
pt is resting in chair. Pt reports no pain after prn tylenol
--- NOTE | 2022-08-20 18:26 | MHC.EDTECH ---
Brought patient a cup of gingerale.
--- NOTE | 2022-08-20 18:43 | PC.NURSE ---
pt finished all of dinner, moved back to bed from chair.
--- NOTE | 2022-08-20 21:31 | PC.NURSE ---
Pt was assisted to the commode next to the bed. Pt has BM, and meds were administered as order.
[2022-08-20 22:00] VITALS: BP 142/75; PULSE 77; RESP 16; TEMP 36.6; O2SAT 99
--- NOTE | 2022-08-21 00:19 | MHC.EDTECH ---
0000 rounding done ,pt awake in bed .
[2022-08-21 06:00] VITALS: BP 115/63; PULSE 72; RESP 16; TEMP 36.7; O2SAT 98
--- NOTE | 2022-08-21 06:00 | MHC.EDTECH ---
0600 rounding done .vitals sign taken ,pt sleeping ,fresh water given .
[2022-08-21] MEDS: Multivitamin TABLET 1 TAB PO (08:17)
[2022-08-21] MEDS: Donepezil HCl 5 MG TABLET PO (08:17)
[2022-08-21] MEDS: HaloperidoL 0.5 MG TABLET PO ×3 (08:17→21:54)
[2022-08-21] MEDS: Acetaminophen 325 MG TABLET 650 MG PO ×2 (08:32→14:50)
[2022-08-21 08:40] VITALS: BP 145/76; PULSE 69; RESP 18; TEMP 36.5; O2SAT 99
--- NOTE | 2022-08-21 09:26 | MHC.EDTECH ---
Assisted patient to the bathroom and back. Assisted patient from bed to recliner and then back to bed. Changed patients pajama pants and linen. Martha Du
--- NOTE | 2022-08-21 09:30 | PC.NURSE ---
Addendum entered by Lindy Russell RN 08/21/22 12:14: fall precautions intact Original Note: assumed care of this patient at 9am, patient awake alert to person, vitals continue to be stable, pt oob with assist of tech to bathroom, pt denies pain/discomfort, watching tv at this time, will continue to monitor.
--- NOTE | 2022-08-21 10:36 | PC.NURSE ---
pt resting, reports some hip pain, but states that the Tylenol helped.
[2022-08-21 14:00] VITALS: BP 140/65; PULSE 75; RESP 16; TEMP 36.4; O2SAT 98
--- NOTE | 2022-08-21 14:47 | MHC.CM.ED ---
Pt continues to board in ED pending court date for guardianship. Emilee Jaimes to be pt's appointment. Pt will then require a MD health application completion and an accepting facility for LTC needs. ED CM to follow
--- NOTE | 2022-08-21 14:54 | PC.NURSE ---
pt reported moderate (5/10) hip pain. pt given prn tylenol
--- NOTE | 2022-08-21 15:30 | PC.NURSE ---
pt restless, this nurse ambulated patient throughout the unit, pt stated the sounds are overwhelming this nurse offered ear plugs which he declined, pt then stated this is all just overwhelming pt then went back to bed with the assist of this nurse.
--- NOTE | 2022-08-21 15:36 | PC.NURSE ---
provider-vesna was notified of the patients increased anxiety, will medicated when orders are put in.
[2022-08-21] MEDS: diphenhydrAMINE HCL 25 MG CAPSULE PO (15:39)
--- NOTE | 2022-08-21 15:41 | PC.NURSE ---
pt medicated with Haldol and Benadryl per order
--- NOTE | 2022-08-21 17:22 | PC.NURSE ---
pt alert and confused/forgetful. pt took afternoon nap and continues to go between bed and recliner with assist. Pt occasionally calls his Elzbieta on his cellphone. No apparent distress at this time
--- NOTE | 2022-08-21 19:16 | PC.NURSE ---
Assumed care for patient. Pt is in bed position semi winston's smiling and speaking on his cell phone.
--- NOTE | 2022-08-21 21:55 | PC.NURSE ---
medicated pt per MAR.
[2022-08-21 22:00] VITALS: BP 104/61; PULSE 58; RESP 16; TEMP 36.3; O2SAT 97
[2022-08-22 05:51] VITALS: BP 129/68; PULSE 72; RESP 18; TEMP 36.6; O2SAT 98
[2022-08-22] MEDS: Multivitamin TABLET 1 TAB PO (08:16)
[2022-08-22] MEDS: HaloperidoL 0.5 MG TABLET PO ×2 (08:17→21:01)
[2022-08-22] MEDS: Donepezil HCl 5 MG TABLET PO (08:17)
--- NOTE | 2022-08-22 09:12 | MHC.CM.ED ---
Patient remains in ED overflow unit. Still waiting to hear from Shukri about a court date for guardianship. Continue to monitor for d/c needs.
[2022-08-22 14:55] VITALS: BP 116/69; PULSE 67; RESP 17; TEMP 37.1; O2SAT 99
[2022-08-23] MEDS: Acetaminophen 325 MG TABLET 650 MG PO ×2 (02:02→08:48)
--- NOTE | 2022-08-23 02:05 | PC.NURSE ---
pt assessed, c/o bilateral hip pain, no injury, medicated with 650mg of tylenol po
[2022-08-23 06:01] VITALS: BP 124/68; PULSE 60; RESP 12; TEMP 36.4; O2SAT 97
--- NOTE | 2022-08-23 06:21 | PC.NURSE ---
pt assessed during the shift, reported good pain relief after administration of tylenol po, oob with standby assist
[2022-08-23 07:52] VITALS: BP 103/70; PULSE 75; RESP 16; TEMP 36.7; O2SAT 95
[2022-08-23] MEDS: Multivitamin TABLET 1 TAB PO (08:49)
[2022-08-23] MEDS: Donepezil HCl 5 MG TABLET PO (08:49)
[2022-08-23] MEDS: HaloperidoL 0.5 MG TABLET PO (08:49)
--- NOTE | 2022-08-23 08:56 | PC.NURSE ---
pt is a/o x 3 ( pt states that the yr was 2012, but he knew where he was, his name and president) speaks in a quiet voice in full sentences. lungs - diminished. c/o 03/05 tete hip pain, med x 1 with apap 650mg po. pt is resting.
--- NOTE | 2022-08-23 09:12 | MHC.CM.ED ---
Patient remains in ER overflow. Still waiting for Barbie to provide hospital with a scheduled court date. Lito Booker from [facility] has been kept updated about progress. Continue to monitor for d/c needs.
--- NOTE | 2022-08-23 09:53 | MHC.EDTECH ---
Pt given a shower by this PCT, clean bed linens in place. Pt resting quietly in bed watching tv, call horton within reach.
[2022-08-23 14:40] VITALS: BP 136/70; PULSE 80; RESP 18; TEMP 36.6; O2SAT 95
--- NOTE | 2022-08-23 14:42 | MHC.EDTECH ---
Pt ambulates to bathroom, 1 assisted.
[2022-08-23 23:08] VITALS: RESP 18
--- NOTE | 2022-08-24 02:20 | MHC.EDTECH ---
Walked pt to bathroom. Legs were shaky. Pt back to bed playing with cards
[2022-08-24 05:44] VITALS: PULSE 65; RESP 15; O2SAT 98
--- NOTE | 2022-08-24 06:00 | MHC.EDTECH ---
walked kylah around overflow till he was ready to go back to bed. camera turned on for monitoring. pt sleeping.
[2022-08-24] MEDS: HaloperidoL 0.5 MG TABLET PO ×2 (08:06→21:05)
[2022-08-24] MEDS: Multivitamin TABLET 1 TAB PO (08:06)
[2022-08-24] MEDS: Donepezil HCl 5 MG TABLET PO (08:06)
[2022-08-24 08:21] VITALS: BP 114/66; PULSE 84; RESP 16; TEMP 36.4; O2SAT 96
--- NOTE | 2022-08-24 09:52 | MHC.CM.ED ---
Patient remains in ER overflow. Vitual guardianship court is scheduled for Saturday 08/26 at 930am. Notice of hearing was delivered to patient by T/W. Patient's court appointed canine service teacher, Tania Quinones, wants to have a FaceTime meeting with Juan José on 08/25 at 10am. Case management will arrange this. Continue to monitor for d/c needs.
--- NOTE | 2022-08-24 16:03 | MHC.CM.ED ---
Pt , Elzbieta requested to speak with CM. Elzbieta has reviewed Notice of Hearing for guardianship that was left with patient. Elzbieta states she will take paperwork home, as she has all of his paperwork. Elzbieta requests to speak with the professional guardian so they can get to know her. NANCI explained that Elzbieta should perhaps wait until she hears from the court or the guardian reaches out to her. Elzbieta tells CM that she spoke with the hospital admitted attorneys who told her she would be invited to the hearing and that she would receive something in the mail or her e-mail. Elzbieta tells CM that she wants to work with the guardian. NANCI explained that once guardianship is complete, the guardian/conservator will work to complete the MH application. Then CM would work on placement for patient to live. NANCI spoke with Lisa Chua regarding above.
[2022-08-24 17:57] VITALS: BP 117/65; PULSE 81; RESP 20; TEMP 36.6; O2SAT 96
--- NOTE | 2022-08-24 19:02 | PC.NURSE ---
Patient remains calm and cooperative with staff, able to ambulate to bathroom with one assist. in to visit twice during shift.
--- NOTE | 2022-08-24 21:06 | PC.NURSE ---
Pt resting calmly, sitting on a recliner. No apparent distress noted. Medicated as ordered. Tolerated well. Will continue to monitor.
[2022-08-24 22:00] VITALS: RESP 12
--- NOTE | 2022-08-24 22:32 | PC.NURSE ---
Pt fell asleep on the recliner. No apparent distress noted. Breaths are even, regular, and non-labored. Will continue to monitor.
--- NOTE | 2022-08-25 03:20 | PC.NURSE ---
Pt sleeping at the bedside in no apparent distress. Breaths are even, regular, and unlabored. Camera monitor noted at bedside. Will continue to monitor.
[2022-08-25 06:00] VITALS: BP 103/57; PULSE 54; RESP 18; TEMP 36.3; O2SAT 98
[2022-08-25 07:56] VITALS: BP 117/64; PULSE 65; RESP 20; TEMP 36.4; O2SAT 99
[2022-08-25] MEDS: HaloperidoL 0.5 MG TABLET PO ×2 (08:33→21:05)
[2022-08-25] MEDS: Multivitamin TABLET 1 TAB PO (08:33)
[2022-08-25] MEDS: Donepezil HCl 5 MG TABLET PO (08:33)
--- NOTE | 2022-08-25 11:00 | MHC.EDTECH ---
Assisted patient from bed to recliner. Martha Du
--- NOTE | 2022-08-25 16:19 | MHC.CM.ED ---
Patient remains in ER overflow unit. Patient had FaceTime meeting with his bit gatherer Tania Quinones at 11am. Tania allowed Elzbieta to be present for this. Private space in overflow #6 was provided for patient and Elzbieta. Both aware Tania will attend court to represent patient. Tania told both Elzbieta and Juan José that they will not be need to be present at the vitual hearing. Lisa Chua and Marissa Palacios aware. Continue to monitor for d/c needs.
--- NOTE | 2022-08-25 18:35 | PC.NURSE ---
pt pleasantly confused following commands but was impulsive. Pt is able to ambulate with 1 assist. Pt was OOB ambulating around overflow and cont, utilizing the restroom. Pt had hearing held today with CM. Another hearing to be done tomorrow w/ [facility] per CM. Pt prefers meds crushed in vanilla pudding. Pt repo self in bed and recliner
[2022-08-25 22:47] VITALS: BP 119/55; PULSE 66; RESP 14; TEMP 36.5; O2SAT 98
--- NOTE | 2022-08-25 22:51 | PC.NURSE ---
Assumed care of pt. at 1900. Pt. lying in bed at that time resting quietly. Pt's family (Elzbieta) came to visit. Pt. visibly happy to see her. Pt. and Elzbieta watched hockey game until visiting hours ended and Elzbieta left. Pt. asking to urinate. Pt. was ambulated with 1 assist to bathroom. Pt. back in bed watching hockey game. Pt. asked where Elzbieta was and when she'd be back to see him. Pt. lying in bed, under no apparent distress. Respirations even and unlabored. Will continue to monitor.
--- NOTE | 2022-08-26 03:41 | PC.NURSE ---
Pt. sleeping, respirations even and unlabored, no distress noted. Will continue to monitor.
[2022-08-26 06:00] VITALS: BP 160/74; PULSE 86; RESP 14; TEMP 36.1; O2SAT 98
[2022-08-26] MEDS: Donepezil HCl 5 MG TABLET PO (08:06)
[2022-08-26] MEDS: Multivitamin TABLET 1 TAB PO (08:06)
[2022-08-26] MEDS: HaloperidoL 0.5 MG TABLET PO ×2 (08:06→19:57)
--- NOTE | 2022-08-26 09:33 | PC.NURSE ---
WENDY Thomas came to me and stated she saw pts. crushing pills and giving them to him. case mgmt and ANEL Newberry aware.gerardo ordered
[2022-08-26 09:46] VITALS: BP 111/63; PULSE 67; RESP 18; O2SAT 97
--- NOTE | 2022-08-26 10:22 | PC.NURSE ---
Martha [facility] alerting this RN, stating she witnessed the patient's giving him medication. ED Charge nurse notified, Nursing supervisor wire rope fabrication notified, CM Notified, MD notified. Urine drug screen ordered. Patient resting in bed, eyes open spontaneously, VSS-BP 111/63, HR 60, SPO2 98% RA, RR 18. No S/S of acute distress.
--- NOTE | 2022-08-26 10:38 | MHC.CM.PN ---
This junior copywriter spoke with patient's appointed guardian, Emilee Jaimes. She was updated re: patient. Emilee's Phone number- [phone] and email [email or web address] Emilee requested [employer] to initiate [employer] [facility] patient.
--- NOTE | 2022-08-26 11:10 | PC.NURSE ---
Patient resting in bed no distress noted no agitation noted poor safety awareness needs some redirection will CTM
--- NOTE | 2022-08-26 14:10 | PC.NURSE ---
Patient resting in bed after eating lunch will CTM
--- NOTE | 2022-08-26 15:19 | PC.NURSE ---
Patient up ambulatory to bathroom with stand by assist continent of urine will CTM
[2022-08-26 16:00] VITALS: BP 126/60; PULSE 70; RESP 18; O2SAT 97
--- NOTE | 2022-08-26 21:24 | MHC.CM.ED ---
CM met with patient at his request. Asking questions about guardian and what was plan. Explained to Juan José that Emilee Jaimes is his guardian now ([phone]) and she will make decisions for his care. Explained that Emilee will have to complete the MH application, which will pay for his eventual housing in LTC. Explained that once the MH is obtained, then CM can look for a place for Juan José to live. Juan José states, that will take some time . CM agreed that this will all take some time. CM will follow for discharge planning.
[2022-08-26 22:00] VITALS: BP 107/66; PULSE 64; RESP 16; TEMP 36.4; O2SAT 97
--- NOTE | 2022-08-27 01:04 | PC.NURSE ---
Pt resting with eyes closed respirations even and unlabored.
--- NOTE | 2022-08-27 03:03 | PC.NURSE ---
Pt ambulated to bathroom 1 assist. Pt had large formed BM. Pt assited back to bed.
[2022-08-27 06:22] VITALS: BP 120/66; PULSE 58; RESP 10; TEMP 36.6; O2SAT 96
[2022-08-27] MEDS: Donepezil HCl 5 MG TABLET PO (08:36)
[2022-08-27] MEDS: Multivitamin TABLET 1 TAB PO (08:36)
[2022-08-27] MEDS: HaloperidoL 0.5 MG TABLET PO ×2 (08:37→20:31)
[2022-08-27 15:56] VITALS: BP 117/62; PULSE 76; RESP 18; TEMP 36; O2SAT 98
[2022-08-27 19:45] LABS: Amphetamine Screen Urine Not Detected (Not Detect); Barbiturates, Urine Not Detected (Not Detect); Benzodiazepines Screen Urine Not Detected (Not Detect); Cannabinoid Screen Urine Not Detected (Not Detect); Cocaine Screen Urine Not Detected (Not Detect); Fentanyl, urine Not Detected (Not Detect); Opiate Screen Urine Not Detected (Not Detect); Phencyclidine Screen Urine Not Detected (Not Detect)
[2022-08-27] MEDS: Acetaminophen 325 MG TABLET 650 MG PO (20:31)
[2022-08-28 06:35] VITALS: BP 106/66; PULSE 56; RESP 15; TEMP 36.4; O2SAT 95
[2022-08-28] MEDS: Donepezil HCl 5 MG TABLET PO (08:09)
[2022-08-28] MEDS: HaloperidoL 0.5 MG TABLET PO ×2 (08:09→19:58)
[2022-08-28] MEDS: Multivitamin TABLET 1 TAB PO (08:09)
[2022-08-28 14:43] VITALS: BP 106/56; PULSE 64; RESP 12; TEMP 36.6; O2SAT 98
--- NOTE | 2022-08-28 15:42 | MHC.EDTECH ---
pt requested to be walked around. pt was walked an is now resting in bed.
--- NOTE | 2022-08-28 19:28 | MHC.EDTECH ---
pt refused dinner. kitchen was called to send an ensure for pt. pt drank 50% b
--- NOTE | 2022-08-28 19:29 | MHC.EDTECH ---
pt refused dinner.kitchen was called for and ensure for pt. pt drank 50% of the ensure. Will continue to encourage drinking the ensure.
--- NOTE | 2022-08-28 21:25 | MHC.EDTECH ---
pt was ambulated to the bathroom. pt urinated and is now resting comfortably in the bed
[2022-08-28 21:45] VITALS: BP 104/64; PULSE 64; RESP 18; TEMP 36.5; O2SAT 94
[2022-08-28] MEDS: QUEtiapine Fumarate 25 MG TABLET PO (22:52)
--- NOTE | 2022-08-29 00:26 | PC.NURSE ---
Assumed care at 7 am. Patient is only oriented to self and vague about situation. Patient can ambulate and ambulated at least 200 feet today with staff 1 assist and contact guard, unsteady and impulsive and jumps OOB frequently. Refusing to eat kitchen food, but his bringing in food he will eat, and he accepted an ensure instead of dinner tonight, often reports that his is taking him out for dinner/breakfast when she intends to come in to give him food, but he will be incorrect about this at times and still refuse meals, discussed with MD, but marinol is nonformulary and no other ordered meds for very poor appetite. Patient is feeling sad that he cannot just spend time with his while he has guardianship and cannot make his own decisions. Patient does express frustration and was consoled with good effect. He is on haldol scheduled and seems like he has possibly extrapyramidal side effects, restlessness, shows pill-rolling, jerky movements, wandering behavior, repetative thoughts and difficult to express his needs at times. Discussed ? extrapyramdals with MD and new order for nonformulary dose of cogentin was questioned and that order cancelled and as new order seroquel 25 mg PO repeat in 30 minutes, second dose held due to good effect and somnolence after first dose.
[2022-08-29 03:29] VITALS: RESP 14
--- NOTE | 2022-08-29 03:31 | PC.NURSE ---
Assumed care at 3:23am from FAYE Silverman, Pt sleeping at this time no sign of distress, medication pending prior to shift, it was report by FAYE Silverman that it was an additional dose that did not need to be given. That was communicated to her by FAYE Ferrell who had provided care before she took over. Will continue to monitor.
[2022-08-29 06:17] VITALS: BP 137/77; PULSE 72; RESP 14; TEMP 36.4; O2SAT 98
--- NOTE | 2022-08-29 06:36 | PC.NURSE ---
Pt sleeping comfortable no sign of distress. bed alarm in place.
[2022-08-29 07:38] VITALS: BP 120/70; PULSE 79; RESP 18; O2SAT 98
[2022-08-29] MEDS: Donepezil HCl 5 MG TABLET PO (08:14)
[2022-08-29] MEDS: Multivitamin TABLET 1 TAB PO (08:14)
[2022-08-29] MEDS: HaloperidoL 0.5 MG TABLET PO ×2 (08:14→20:19)
--- NOTE | 2022-08-29 11:16 | MHC.EDTECH ---
Assisted patient from bed to/in restroom and back to recliner. Changed patients linecornelia. Martha Du
--- NOTE | 2022-08-29 11:43 | MHC.CM.ED ---
Patient remains in ER overflow. Guardian is Emilee Jaimes. [facility] is waiting for copies of patient's guardian from the court. Emilee will need to complete a [employer] application and patient will need to be found LTC placement. Continue to monitor for d/c needs.
--- NOTE | 2022-08-29 13:13 | PC.NURSE ---
Patient up out of bed now sitting in chair. Remains calm and cooperative with staff. Ambulating to bathroom with one assist.
[2022-08-29 15:38] VITALS: BP 112/58; PULSE 63; RESP 20; TEMP 36.6; O2SAT 98
[2022-08-29 22:00] VITALS: BP 134/72; PULSE 74; RESP 18; TEMP 36.8
[2022-08-30 05:40] VITALS: BP 153/74; PULSE 68; RESP 17; TEMP 36.5; O2SAT 98
[2022-08-30] MEDS: Multivitamin TABLET 1 TAB PO (07:21)
[2022-08-30] MEDS: Donepezil HCl 5 MG TABLET PO (07:21)
[2022-08-30] MEDS: HaloperidoL 0.5 MG TABLET PO ×2 (07:21→20:32)
--- NOTE | 2022-08-30 08:14 | PC.NURSE ---
assumed care of patient, pt resting comfortably in bed, visitor at bedside, AM meds given, breakfast delivered and set up for patient. VSS
--- NOTE | 2022-08-30 13:22 | PC.NURSE ---
lunch tray delivered and set up for patient.
--- NOTE | 2022-08-30 15:00 | PC.NURSE ---
Assumed care of patient, pt resting comfortably in bed.
--- NOTE | 2022-08-30 22:15 | PC.NURSE ---
PATIENT CONFUSED ON LOCATION AND SCENARIO. PATIENT REASSURED BY RN, VERBALIZED UNDERSTANDING, AND RESTING COMFORTABLY IN BED. ALL MEDICATIONS PASSED WITHOUT ISSUE. PATIENT ABLE TO SWALLOW PILLS WHOLE WITH WATER. TELESITTER POSITIONED NEXT TO BED.
[2022-08-30 23:51] VITALS: BP 103/89; PULSE 57; RESP 16; O2SAT 97
[2022-08-31 07:33] VITALS: BP 117/68; PULSE 73; RESP 17; O2SAT 95
--- NOTE | 2022-08-31 07:52 | PC.NURSE ---
Pts bedside for visit
[2022-08-31] MEDS: Donepezil HCl 5 MG TABLET PO (08:11)
[2022-08-31] MEDS: HaloperidoL 0.5 MG TABLET PO (08:11)
[2022-08-31] MEDS: Multivitamin TABLET 1 TAB PO (08:11)
--- NOTE | 2022-08-31 13:54 | MHC.CM.ED ---
Patient remains in ER overflow. Still waiting for guardianship paperwork to be provided from court. Continue to monitor for d/c needs.
[2022-08-31 14:00] VITALS: BP 119/74; PULSE 95; RESP 20; TEMP 36.2
--- NOTE | 2022-08-31 18:22 | PC.NURSE ---
Pt confused attempting to get out of bed and chair frequently. Stating he wants to go home and is waiting for his ride
[2022-08-31 22:00] VITALS: BP 130/82; RESP 20; TEMP 36.7; O2SAT 98
--- NOTE | 2022-08-31 22:47 | PC.NURSE ---
Pt refused to take NIVIA bedtime medication. Pt repositioned to right side of bed and resting quietly.
[2022-09-01 06:00] VITALS: BP 97/51; PULSE 76; RESP 17; TEMP 37.2; O2SAT 92
--- NOTE | 2022-09-01 06:05 | PC.NURSE ---
Pt hasn't voided all shift. Urinal and bedside commode was offered to pt throughout shift but no urine output. Bladder scan pt for 479cc. This RN notified ED charge. New order to straight cath was given. Will continue to monitor pts urine output.
--- NOTE | 2022-09-01 06:10 | PC.NURSE ---
This RN notified by OF RN that pt has not voided all night, per Suzi RN, bladder scan showing 479 ml of urine within bladder. Anwer aware, per Anwer to straight cath patient. Order placed, primary RN aware.
[2022-09-01 06:46] VITALS: TEMP 38.6
[2022-09-01] MEDS: Acetaminophen 325 MG TABLET 650 MG PO (06:49)
--- NOTE | 2022-09-01 06:59 | PC.NURSE ---
Addendum entered by Sabra Pablo 09/01/22 07:14: Temp was 100.5 rectally per night nurse Original Note: Attending notified of temp of 101.5, Tylenol given by night nurse. Labs to be drawn. Bladder scan showed 500cc of urine in bladder and unable to get the catheter in due to large prostate.
--- NOTE | 2022-09-01 07:22 | PC.NURSE ---
Throughout cook night pt did not void and bladder scan for 479cc. ED charge notified and straight cath was ordered. This RN attempted to straight cath pt but the pt became agitated and combative. This RN notified ED charge again of the situation and came to bedside to help assist with 2nd attempt of straight cath. During the process there was trauma and slight bleeding when advancing the straight cath. Straight cath was removed with no urine output. Pt was hot to touch and rectal temp was taken and pt had fever of 101.5. PRN Tylenol was given to pt. Pt was able to use the urinal and 400cc was the output. Will continue to monitor pts temp and urine output.
[2022-09-01] MEDS: Donepezil HCl 5 MG TABLET PO (08:44)
[2022-09-01] MEDS: Multivitamin TABLET 1 TAB PO (08:44)
[2022-09-01] MEDS: HaloperidoL 0.5 MG TABLET PO ×2 (08:44→20:16)
[2022-09-01 09:06] VITALS: TEMP 37.9
[2022-09-01 09:19] LABS: Lactic Acid 1.1 mmol/L (0.5-2.0)
--- NOTE | 2022-09-01 13:09 | MHC.CM.ED ---
Patient remains in ER overflow. Guardianship paperwork has not been received the court yet. Continue to monitor for d/c needs.
--- NOTE | 2022-09-01 13:52 | PC.NURSE ---
pt remains with confusion throughout the shift. He is incontinent of urine at times
[2022-09-01 17:06] VITALS: TEMP 37.4
--- NOTE | 2022-09-01 18:24 | PC.NURSE ---
Resumed care at approximately 1500. Pt confused and agitated, requiring very frequent redirection and reorientation. Pt refused meal this shift. Temp is now improving. Pt otherwise in no acute distress. Safety maintained throughout. Tele sitter at bedside. Will continue to monitor.
[2022-09-01 18:29] VITALS: PULSE 68; RESP 16; O2SAT 94
[2022-09-01 23:57] VITALS: BP 98/52; PULSE 82; RESP 20; TEMP 37.2; O2SAT 97
[2022-09-02 04:16] VITALS: BP 106/63; PULSE 67; RESP 20; TEMP 36.9; O2SAT 97
--- NOTE | 2022-09-02 07:42 | MHC.EDTECH ---
ambulated patient to bathroom.
[2022-09-02] MEDS: Multivitamin TABLET 1 TAB PO (08:38)
[2022-09-02] MEDS: Donepezil HCl 5 MG TABLET PO (08:38)
[2022-09-02] MEDS: HaloperidoL 0.5 MG TABLET PO ×2 (08:38→20:50)
--- NOTE | 2022-09-02 08:58 | PC.NURSE ---
patient alert, confuse. at the bedside. morning medication crushed and placed in pudding. no signs of difficulty noted. chair alarm and camera in place for safety
--- NOTE | 2022-09-02 09:01 | MHC.CM.ED ---
Patient remains in ER overflow. Met with patient and Elzbieta. Elzbieta met with guardian, Emilee on 08/31 to complete the [employer] application. Emilee was going to submit the application. But there are a number of things Elzbieta will have to provide to Emilee for [employer] to be able to approve the application. Continue to monitor for d/c needs.
--- NOTE | 2022-09-02 15:31 | PC.NURSE ---
ambulated to the bathroom with marine electronics technician.
[2022-09-02 18:07] VITALS: BP 122/62; PULSE 66; RESP 16; TEMP 36.4; O2SAT 97
[2022-09-02 23:27] VITALS: PULSE 65; RESP 14; O2SAT 98
--- NOTE | 2022-09-02 23:28 | MHC.EDTECH ---
pt and sleeping in the same bed. updated all vitals except bp and temp. will continue to monitor
[2022-09-03 07:58] VITALS: BP 109/60; PULSE 64; RESP 20; TEMP 36.6; O2SAT 96
[2022-09-03] MEDS: Multivitamin TABLET 1 TAB PO (07:58)
[2022-09-03] MEDS: Donepezil HCl 5 MG TABLET PO (07:58)
[2022-09-03] MEDS: HaloperidoL 0.5 MG TABLET PO ×2 (07:58→20:22)
--- NOTE | 2022-09-03 08:30 | PC.NURSE ---
ASSUMED CARE OF THIS PT AT 0700. PT AWAKE IN BED EATING BREAKFAST THAT HIS SPOUSE BROUGHT. HE DENIES PAIN, VSS. MEDS GIVEN DOCUMENTED.
--- NOTE | 2022-09-03 11:00 | PC.NURSE ---
PT'S SPOUSE LEFT. PT UP IN RECLINER WATCHING TV. CAMERA ON.
--- NOTE | 2022-09-03 11:57 | MHC.EDTECH ---
Assisted patient with personal Hygiene. Cleaned patients area,changed linen on bed and recliner.
[2022-09-03 15:23] VITALS: BP 110/65; PULSE 57; RESP 18; TEMP 36.4; O2SAT 98
[2022-09-03 20:17] LABS: PLT CLUMP 1; Red Cell Distribution Width 12.2 % (11.0-16.0); SCAN SMEAR FLAG 1
[2022-09-03 20:19] LABS: Basophils Percent Auto 0.6 % (0-2); Eosinophils Absolute Auto 0.4 X10*3/uL (0.0-0.4); Eosinophils Percent Auto 6.5 % (0-4); Hematocrit 36.4 % (42.0-52.0); Hemoglobin 12.1 g/dl (14.0-18.0); Imm Gran Abs Auto 0.02 X10*3/uL (0.00-0.03); Imm Gran Pct Auto 0.3 % (0.0-0.4); Lymphocytes Absolute Auto 1.5 X10*3/uL (1.2-4.9); Lymphocytes Percent Auto 23.9 % (20-40); MANUAL DIFF FLAG SCAN; Mean Corpuscular HGB Conc 33.2 g/dl (31.0-36.0); Mean Corpuscular Hemoglobin 29.7 pg (27.0-33.0); Mean Corpuscular Volume 89.4 fL (80.0-98.0); Monocytes Absolute Auto 1.1 X10*3/uL (0.1-1.2); Monocytes Percent Auto 17.4 % (2-11); Neutrophils Absolute Auto 3.2 x10*3/uL (2.0-8.3); Neutrophils Percent Auto 51.3 % (45-73); Red Blood Count 4.07 X10*6/uL (4.60-5.80)
[2022-09-03 20:35] LABS: White Blood Count 6.3 X10*3/uL (4.8-10.8)
[2022-09-03 20:36] LABS: SLIDE REVIEW VERIFIED
[2022-09-03 20:39] LABS: Anion Gap 9 (12-20); Blood Urea Nitrogen 29 mg/dL (9-16); Calcium 9.1 mg/dL (8.4-10.2); Carbon Dioxide 35 mmol/L (22-29); Chloride 100 mmol/L (96-108); Creatinine Clr Calc Pharmacy 69.2; Estimated Glomerular Filt Rate > 60; Glucose Random 52 mg/dL (60-115); Potassium 3.4 mmol/L (3.3-5.1); Sodium 141 mmol/L (135-145)
[2022-09-03 23:52] VITALS: BP 101/55; PULSE 55; RESP 16; TEMP 36.2; O2SAT 98
--- NOTE | 2022-09-04 00:48 | PC.NURSE ---
Patient alert to person, confused. VSS. Medications administered as ordered. Pateint resting quietly at present. Will continue to monitor.
[2022-09-04] MEDS: Donepezil HCl 5 MG TABLET PO (07:31)
[2022-09-04] MEDS: HaloperidoL 0.5 MG TABLET PO ×2 (07:31→20:07)
[2022-09-04] MEDS: Multivitamin TABLET 1 TAB PO (07:31)
[2022-09-04 07:52] VITALS: BP 156/82; PULSE 69; RESP 14; TEMP 36.5; O2SAT 99
[2022-09-04 09:29] LABS: Glucose, Whole Blood 153 mg/dL (60-115)
--- NOTE | 2022-09-04 10:38 | MHC.EDTECH ---
Pt sitting in recliner with at bedside. Talking/sitting quietly. Does not endorse any concerns at this time.
--- NOTE | 2022-09-04 12:17 | PC.NURSE ---
0845: PT IN RECLINER WAITING FOR HIS SPOUSE TO COME IN WITH BREAKFAST, HE REFUSED HOSPITAL BREAKFAST, ATE 100% OF MEAL BROUGHT IN BY HIS SPOUSE. PT AMBULATED TO BATHROOM WITH CLOSE CONTACT FROM STAFF. SPOUSE REMAINS AT BEDSIDE.
--- NOTE | 2022-09-04 12:22 | PC.NURSE ---
Assumed care of Pt at 0700. Pt alert to self and place, forgetful at times. Pt denies pain. Bed alarm on, camera in place. Pt has ambulated to the toilet with one assist to void. at bedside. Pt sleeping in bed at this time.
[2022-09-04 14:47] VITALS: BP 112/65; PULSE 72; RESP 16; TEMP 36.7; O2SAT 99
--- NOTE | 2022-09-04 15:48 | PC.NURSE ---
PT'S SPOUSE NO LONGER AT BEDSIDE, PT IN BED AT THIS TIME. BED ALARM ON, CAMERA IN PLACE.
--- NOTE | 2022-09-04 18:35 | PC.NURSE ---
pt ambulated around unit with staff in close contact. snack given, pt sleeping at this time.
--- NOTE | 2022-09-04 22:53 | MHC.EDTECH ---
Patient has Dementia. He has been up multiple of times looking for his . Patient has been redirected to his bed and reminded that his was here all day, and she has left home for the day.
[2022-09-05 05:48] VITALS: BP 115/63; PULSE 70; RESP 20; TEMP 36.6; O2SAT 100
[2022-09-05] MEDS: Multivitamin TABLET 1 TAB PO (08:59)
[2022-09-05] MEDS: Donepezil HCl 5 MG TABLET PO (08:59)
[2022-09-05] MEDS: HaloperidoL 0.5 MG TABLET PO ×2 (08:59→19:15)
--- NOTE | 2022-09-05 12:11 | PC.NURSE ---
Pts has been at bedside for a couple hours visiting with pt. Camera on. will CTM
--- NOTE | 2022-09-05 14:56 | PC.NURSE ---
pts remains at bedside. Pt sleeping, respirations equal and unlabored.
[2022-09-05 16:04] VITALS: BP 100/58; PULSE 74; RESP 16; TEMP 36.4; O2SAT 97
--- NOTE | 2022-09-05 16:05 | MHC.EDTECH ---
this pct assumed care of pt at 1500 ,pt here visiting ,snack offered ,vitals sign taken .
--- NOTE | 2022-09-05 16:36 | MHC.EDTECH ---
assist pt with ambulation to bathroom ,pt void large amount ,back to bed warm blanket given ,pt left .
--- NOTE | 2022-09-05 18:52 | MHC.EDTECH ---
pt was given dinner ,ate 100 % of meal ,drank 480 ml fluids .
--- NOTE | 2022-09-05 19:39 | MHC.EDTECH ---
took pt for a walk ,then back in bed ,warm blanket given .
[2022-09-05 21:19] VITALS: BP 134/70; PULSE 70; RESP 16; TEMP 36.3; O2SAT 98
[2022-09-06 06:00] VITALS: BP 110/67; PULSE 73; RESP 16; TEMP 36.1
--- NOTE | 2022-09-06 06:00 | MHC.EDTECH ---
0600 rounding done ,vitals sign taken ,fresh water given ,pt slept all night .
[2022-09-06] MEDS: Multivitamin TABLET 1 TAB PO (08:31)
[2022-09-06] MEDS: HaloperidoL 0.5 MG TABLET PO ×2 (08:31→21:43)
[2022-09-06] MEDS: Donepezil HCl 5 MG TABLET PO (08:31)
[2022-09-06 14:16] VITALS: BP 120/65; PULSE 71; RESP 16; TEMP 36.2; O2SAT 98
--- NOTE | 2022-09-06 15:15 | MHC.CM.ED ---
Patient remains in ER overflow. Guardianship obtained 08/26. [employer] application completed by guardian and , Elzbieta. [employer] not active in [facility] [place] at this time. Continue to monitor for d/c needs.
--- NOTE | 2022-09-06 21:59 | PC.NURSE ---
Pt alert and oriented to self. Resting at the bedside in no apparent distress. Breaths are even, regular, and unlabored. Medicated as ordered and tolerated well. Video monitor at bedside. Care ongoing.
[2022-09-06 23:26] VITALS: RESP 18
[2022-09-07 05:39] VITALS: BP 112/62; PULSE 61; RESP 18; TEMP 36.2; O2SAT 100
[2022-09-07] MEDS: HaloperidoL 0.5 MG TABLET PO ×2 (09:11→21:06)
[2022-09-07] MEDS: Multivitamin TABLET 1 TAB PO (09:11)
[2022-09-07] MEDS: Donepezil HCl 5 MG TABLET PO (09:11)
[2022-09-07 11:21] VITALS: BP 98/53; PULSE 64; RESP 16; TEMP 36.4; O2SAT 100
--- NOTE | 2022-09-07 11:44 | MHC.EDTECH ---
Assist patient from bed to restroom and back to bed. Later assisted patient from bed to recliner. Martha Du
[2022-09-07 14:34] VITALS: BP 112/65; PULSE 68; RESP 18; O2SAT 96
--- NOTE | 2022-09-07 16:00 | MHC.EDTECH ---
this pct assumed care of pt at 1500 ,pt went for a walk around over flow ,then back to bed ,ice cream given for snack ,vitals sign taken .
[2022-09-07 16:07] VITALS: BP 103/58; PULSE 64; RESP 16; TEMP 36.4; O2SAT 8
--- NOTE | 2022-09-07 17:29 | MHC.EDTECH ---
pt went for another walk .
--- NOTE | 2022-09-07 18:43 | MHC.EDTECH ---
pt ate 100 % of dinner drank 240 ml juice .
--- NOTE | 2022-09-07 19:35 | PC.NURSE ---
Addendum entered by Ryanne Hilton 09/07/22 19:54: Camera remains in place at bedside and bed alarm is active. Original Note: Assumed care of pt. at 1900. Pt. resting quietly in bed at that time. Pt. up out of bed looking for son, who is not here. Pt. then requesting to use the bathroom. Assisted pt. to restroom where he urinated, washed hands and returned to bed. Pt. watched sports for a short time and spoke on his phone. Pt. currently resting in bed with no apparent distress. Will continue to monitor.
[2022-09-07 22:31] VITALS: BP 134/64; PULSE 63; RESP 15; TEMP 36.6; O2SAT 99
--- NOTE | 2022-09-08 02:12 | PC.NURSE ---
Patient AO to self only on shift. Constantly easily redirected back to bed. Patient up several times attempting to get out of bed unassisted asking for the time. He's not in any respiratory distress, pleasantly confused and cooperative with care. Bed alarm and video monitoring camera in place for safety and fall risk. Patient is sleeping now, care is ongoing.
[2022-09-08 07:12] VITALS: BP 131/74; PULSE 80; RESP 17; TEMP 36.9; O2SAT 98
[2022-09-08] MEDS: Multivitamin TABLET 1 TAB PO (07:36)
[2022-09-08] MEDS: Donepezil HCl 5 MG TABLET PO (07:36)
[2022-09-08] MEDS: HaloperidoL 0.5 MG TABLET PO ×2 (07:37→19:27)
[2022-09-08 07:59] VITALS: BP 166/85; PULSE 99; RESP 16; TEMP 37.2; O2SAT 97
[2022-09-08 08:43] VITALS: RESP 18
--- NOTE | 2022-09-08 15:58 | MHC.CM.ED ---
Pt continue to wait for MH approval. Will need LTC. Guardiananda Jaimes submitted MH application.
[2022-09-08 16:12] VITALS: BP 112/79; PULSE 73; RESP 16; TEMP 36.4; O2SAT 97
--- NOTE | 2022-09-08 19:45 | PC.NURSE ---
Pt had a good day overall. Although he continues to get out of bed w/o calling for help -he is easily redirectable.
[2022-09-08 23:26] VITALS: BP 139/75; PULSE 67; RESP 14; TEMP 36.6; O2SAT 100
--- NOTE | 2022-09-09 01:27 | PC.NURSE ---
Assumed care of pt. at 2300. Pt. sitting up in bed at that time. Pt. now sleeping, respirations even and unlabored, no distress noted. Will continue to monitor.
--- NOTE | 2022-09-09 03:57 | PC.NURSE ---
Pt. awoke and got out of bed, stating he needed to call Elzbieta . This RN explained to pt. that is was almost 4am and that Elzbieta was asleep and he should try calling in the morning. Pt. then said he needed to find a oni place for his phone . This RN reoriented pt. to time of day and that it was dark out and that it was time for sleep. Pt. reported not needing to use the bathroom. Pt. tucked back in bed. Pt. then got up and out of bed stating that he forgot he did need to use the bathroom . Pt. assisted to bathroom where he urinated and then assisted back to bed.
--- NOTE | 2022-09-09 04:58 | PC.NURSE ---
Pt. up and out of bed, wanting to call his , Elzbieta. This RN explained that it was still nighttime and was a couple hours away from breakfast time. Pt. sat in reclining chair for a short while with tech at beside. Pt. assisted back in bed.
[2022-09-09 06:00] VITALS: BP 103/66; PULSE 70; RESP 16; O2SAT 98
[2022-09-09] MEDS: HaloperidoL 0.5 MG TABLET PO ×2 (07:34→20:20)
[2022-09-09] MEDS: Multivitamin TABLET 1 TAB PO (07:34)
[2022-09-09] MEDS: Donepezil HCl 5 MG TABLET PO (07:34)
[2022-09-09 07:36] LABS: Glucose, Whole Blood 109 mg/dL (60-115)
[2022-09-09 08:31] VITALS: BP 119/67; PULSE 85; RESP 14; TEMP 36.7; O2SAT 95
--- NOTE | 2022-09-09 08:45 | PC.NURSE ---
Patient confused at baseline. Denies any pain. VSS. OOB to recliner with at bedside. Non labored breathing. No distress noted. Chair alarm in place and camera at bedside for fall safety.
[2022-09-09 13:04] LABS: Glucose, Whole Blood 86 mg/dL (60-115)
--- NOTE | 2022-09-09 13:10 | MHC.EDTECH ---
Pt POC checked before lunch, helped Pt out of bed and into the recliner to eat. Pt ate whole sandwich and 1 can of gingerale. Pt resting in recliner, making phone call.
--- NOTE | 2022-09-09 13:57 | MHC.EDTECH ---
Pt up from chair to use the bathroom. This tech assisted Pt to use the bathroom, hospital pants ended up soiled. Pt sat in chair in bathroom and was cleaned up with new pants put on. Assisted Pt back to chair as requested. Pt sitting quietly.
--- NOTE | 2022-09-09 14:58 | MHC.CM.ED ---
Pt continues to board in the ED awaiting LTC placement. Pt has a legal guardian and [employer] has been submitted and is pending authorization. Once payor has been secured, LTC referrals will be made for pt. ED CM to follow
[2022-09-09 16:00] VITALS: BP 105/59; PULSE 68; RESP 16; O2SAT 98
--- NOTE | 2022-09-09 16:59 | PC.NURSE ---
Patient A&O to person, confused at baseline. VSS, no pain reported. Patient OOB to chair, chair alarm on, telesitter camera at bedside.
[2022-09-09 22:00] VITALS: BP 110/62; PULSE 66; RESP 16; TEMP 36.7; O2SAT 98
--- NOTE | 2022-09-09 22:44 | PC.NURSE ---
Patient A&O X1, to self only. He is pleasantly confused. He can be restless at times when needing to use the BR. Pt amb to BR w/ this RN w/ contact guard. He is easily redirected, took his nighttime meds and is currently sleeping. Bed alarm and video monitoring camera in place for safety and fall risk.
[2022-09-09] MEDS: LORazepam 1 MG TABLET 2 MG PO (23:31)
--- NOTE | 2022-09-09 23:34 | PC.NURSE ---
: Pt very restless, appears anxious, trying to call his . keeps getting OOB despite redirection, unsteady on feet. Provider Ewa notified and ordered PRN ativan STEFANIE. Med given, awaiting effect. Pt helped back to bed.
[2022-09-10 05:41] VITALS: BP 105/55; PULSE 72; RESP 16; TEMP 36.6; O2SAT 96
[2022-09-10] MEDS: diphenhydrAMINE HCL 50 MG/ML VIAL 25 MG IM (07:38)
[2022-09-10] MEDS: LORazepam 2 MG/ML VIAL IM (07:39)
[2022-09-10] MEDS: Haloperidol Lactate 5 MG/ML VIAL IM (07:47)
--- NOTE | 2022-09-10 07:54 | PC.NURSE ---
Around 0715, Pt became very agitated, completely unredirectable and refusing to sit. He insists on leaving states he wants to drive his car. Pt became increasingly aggresisve, pushing at staff. He is unsteady on his feet and almost fell multiple times. 3 staff contact guard trying to stop him from falling. ED extension service specialist in charge and MD notified. MD ordered stat IM haldol/benadryl and ativan. Meds given and Pt back in bed now. Report given to oncoming RN.
--- NOTE | 2022-09-10 12:05 | PC.NURSE ---
patient remains sleeping post IM injection. chest rise and fall equal and unlabored. no signs of distress noted. camera and bed alarm in place for safety
--- NOTE | 2022-09-10 18:15 | PC.NURSE ---
bed bath provided post incontinence
--- NOTE | 2022-09-10 19:19 | MHC.EDTECH ---
pt refused dinner ,pt sleeping .
[2022-09-10 20:19] VITALS: BP 124/70; PULSE 64; RESP 16; TEMP 36.3; O2SAT 97
[2022-09-10] MEDS: HaloperidoL 0.5 MG TABLET PO (21:00)
--- NOTE | 2022-09-10 21:26 | PC.NURSE ---
Pt attempted to get out of bed and trying to leave. Staff redirected pt back to bed. Pt's brief was wet so pt was cleaned and changed before being settled back into bed.
[2022-09-10] MEDS: LORazepam 1 MG TABLET 2 MG PO (21:45)
[2022-09-11 02:06] VITALS: BP 112/65; PULSE 67; RESP 16; TEMP 36.3; O2SAT 97
--- NOTE | 2022-09-11 02:07 | MHC.EDTECH ---
pt was bladder scan ,amount was 109 ,rn jacklyn aware .
--- NOTE | 2022-09-11 02:15 | PC.NURSE ---
PT HAS BEEN ASLEEP SINCE THIS RN ASSUMED CARE AT 2300. OUTSTANDING ORDER FOR U/A WITH CULTURE ORDERED WITH STRAIGHT CATH ORDER. PT STRAIGHT CATHED WITHOUT DIFFICULTY AND NO URINE RETURNED. PT SLEPT THROUGH PROCEDURE. BLADDER SCANNED FOR 109 ML. FINALLY ABLE TO GET ABOUT 40 ML FROM STRAIGHT CATH BAG AND URINE SENT TO LAB. VITAL SIGNS STABLE 112/65, T 97.4 PO, HR 67, RR 16. ER MD NOTIFIED PT HAS NOT HAD ANY FOOD OR DRINK FOR 24 HOURS, QUESTION IV FLUIDS OR LABS. AWAITING ORDERS.
[2022-09-11 02:37] LABS: Appearance Urine Clear; Color Urine Dark Yellow; Glucose Urine UA Negative (Negative); Leukocyte Esterase Urine Negative (Negative); Nitrite Urine Negative (Negative); PH 5.5 (5.0-9.0); Specific Gravity - Urine 1.025 (1.005-1.025); UMIC TRIGGER UACC YES; Urine Blood Trace (Negative); Urine Ketones Trace mg/dL (Negative); Urine Protein Trace mg/dL (Neg-Trace)
[2022-09-11 03:07] LABS: Bacteria Urine None Seen (None Seen); Hyaline Casts Urine 0-2 /LPF (0-2); Squamous Epithelial Cell Urine 0-2 /HPF (0-2); WBC Urine 0-5 /HPF (0-5)
[2022-09-11] MEDS: 0.9 % Sodium Chloride 1,000 ML 999 ML IV (03:14)
--- NOTE | 2022-09-11 04:14 | PC.NURSE ---
MD ORDERED IV INSERTION AND NS IV BOLUS WHICH JUST FINISHED INFUSING AT THIS TIME. LABS ORDERED FOR AM...CHEM PROFILE AND CBC. PT CONTINUES TO SLEEP. DID NOT WAKE UP FOR IV INSERTION WHICH TOOK 2 ATTEMPTS. PT TURNED AND REPOSITIONED Q2HR. SKIN IS INTACT. NO VOID THUS FAR FOR THIS RN'S SHIFT SINCE 2300. LAST INCONTINENT VOID APPROXIMATELY 2100.
[2022-09-11 05:45] VITALS: BP 124/58; PULSE 52; RESP 10; TEMP 36.1; O2SAT 97
[2022-09-11 06:13] LABS: MANUAL DIFF FLAG NO
[2022-09-11 06:29] LABS: Basophils Percent Auto 0.6 % (0-2); Eosinophils Absolute Auto 0.3 X10*3/uL (0.0-0.4); Eosinophils Percent Auto 5.8 % (0-4); Hematocrit 34.3 % (42.0-52.0); Hemoglobin 11.6 g/dl (14.0-18.0); Imm Gran Abs Auto 0.02 X10*3/uL (0.00-0.03); Imm Gran Pct Auto 0.4 % (0.0-0.4); Lymphocytes Absolute Auto 1.3 X10*3/uL (1.2-4.9); Lymphocytes Percent Auto 27.5 % (20-40); Mean Corpuscular HGB Conc 33.8 g/dl (31.0-36.0); Mean Corpuscular Hemoglobin 30.7 pg (27.0-33.0); Mean Corpuscular Volume 90.7 fL (80.0-98.0); Monocytes Absolute Auto 0.6 X10*3/uL (0.1-1.2); Monocytes Percent Auto 12.3 % (2-11); Neutrophils Absolute Auto 2.6 x10*3/uL (2.0-8.3); Neutrophils Percent Auto 53.4 % (45-73); Red Blood Count 3.78 X10*6/uL (4.60-5.80); Red Cell Distribution Width 12.2 % (11.0-16.0); White Blood Count 4.8 X10*3/uL (4.8-10.8)
[2022-09-11 09:23] LABS: Anion Gap 16 (12-20)
[2022-09-11 09:50] LABS: Alanine Aminotransferase 20 U/L (0-40); Albumin Level 3.6 g/dL (3.5-5.0); Alkaline Phosphatase 50 U/L (39-117); Aspartate Amino Transferase 39 U/L (5-37); Bilirubin Total 1.1 mg/dL (0.0-1.0); Blood Urea Nitrogen 23 mg/dL (9-16); Calcium 9.3 mg/dL (8.4-10.2); Carbon Dioxide 23 mmol/L (22-29); Chloride 105 mmol/L (96-108); Creatinine Clr Calc Pharmacy 83.1; Estimated Glomerular Filt Rate > 60; Glucose Random 78 mg/dL (60-115); Sodium 140 mmol/L (135-145); Total Protein 6.1 g/dL (6.5-8.0)
[2022-09-11 10:00] VITALS: BP 114/62; PULSE 76; RESP 14
[2022-09-11] MEDS: Donepezil HCl 5 MG TABLET PO (10:29)
[2022-09-11] MEDS: Multivitamin TABLET 1 TAB PO (10:29)
[2022-09-11] MEDS: HaloperidoL 0.5 MG TABLET PO (10:30)
--- NOTE | 2022-09-11 11:13 | PC.NURSE ---
pt is somewhat agitated and for a while insisting that he get up, IV fluid is not given due to his current status per SUPERVISOR ORCHARD. He did talk to his Elzbieta and wanting her to come see him. I also called and left a message with no return phone call noted. Gave his 9 am meds late as sleeping until about 10:30 am. currently siting on edge of bed, refusing to lay down. very weak with ambulation noted
[2022-09-11] MEDS: LORazepam 1 MG TABLET 2 MG PO (12:09)
--- NOTE | 2022-09-11 12:30 | MHC.EDTECH ---
Assisted pt back to bed from chair. Provided warm blanket. Bed in low, locked potition. Bed alarm in place.
--- NOTE | 2022-09-11 13:19 | PC.NURSE ---
Ativan 2mg given at 12:10 pm due to increased agitation pt did drink 2 cups of water since he became awake. sleeping now. VSS. breathing is non labored and respirations are wnl.
[2022-09-11 14:30] VITALS: BP 114/67; PULSE 75; RESP 16; O2SAT 98
[2022-09-11] MEDS: OLANZapine 2.5 MG TABLET PO (15:11)
--- NOTE | 2022-09-11 17:42 | PC.NURSE ---
pt remains very confused and was constantly trying to get up since 14:00. very unsteady on his feet even with 2 assists. tech to sit with him at this time. He did eat lunch and had 2 cups of liquid
[2022-09-11 20:49] VITALS: RESP 18
[2022-09-12 02:30] VITALS: BP 101/61; PULSE 68; RESP 17; TEMP 36.4; O2SAT 98
[2022-09-12 05:00] VITALS: BP 104/66; PULSE 59; RESP 17; TEMP 37.1; O2SAT 100
--- NOTE | 2022-09-12 06:31 | PC.NURSE ---
Assumed care at 23:00. Patient seems worse than prior occasions with respect to alertness, instability with ambulation, redirectability, falls safety, and following instructions. Shuffling gait, pill-rolling hand motions, and delusional ideation tonight. On scheduled haldol, but was refused on days per emar. 1:1 sitter. Delusional ideation, threatening staff, resistive to care. Walked him to the bathroom where he urinated all over the floor and would not keep his eyes open for the walk despite encouragement. Agitated. Prevented from wandering because he was so unsafe with ambulating. Refusing his PO ativan. He has not been able to sleep and is expressing delusional ideation. Failed [place] catheter. Discussed with PA. IV NS at 50/hour on hold per prior nursing documentation, will address on days.
--- NOTE | 2022-09-12 08:00 | MHC.EDTECH ---
pt was fed breakfast. pt is a 1:1 feed.
--- NOTE | 2022-09-12 08:26 | MHC.CARE ---
CARE Team consulted with ANEL Morrissey , plan for Pt to be seen by psychiatry secondary to care team consult placed for delirium and agitation.
[2022-09-12 09:00] VITALS: BP 108/66; PULSE 76; RESP 12; TEMP 36.4; O2SAT 96
--- NOTE | 2022-09-12 09:16 | MHC.EDTECH ---
sitter for pt fed pt breakfast 1:1.
[2022-09-12] MEDS: Multivitamin TABLET 1 TAB PO (09:17)
[2022-09-12] MEDS: Donepezil HCl 5 MG TABLET PO (09:17)
--- NOTE | 2022-09-12 09:30 | PC.NURSE ---
Patient alert and confused. No c/o pain. All medications taken crushed in applesauce. Will continue to monitor.
--- NOTE | 2022-09-12 13:19 | PC.NURSE ---
Patient did not want to eat lunch earlier. Now eating a late lunch with setup and cueing.
--- NOTE | 2022-09-12 13:40 | P.CNPS_ITS ---
History of Present Illness Date of Service: 09/12/2022 Chief Complaint: Fall (poss head strike) per EMS Reason for Consult: agitation Requesting physician: Nel Bustos Discussed with referring provider: Yes Sources of Information: patient interviewed, chart reviewed and crisis/core team assessment reviewed HPI Narrative: Mr. Yañez is a 72 year-old male with hx of Dementia. Pt currently awaiting guardianship and placement. Psych consult ordered due to increase agitation. Per records, pt more agitated since 09/10 increasingly more confused, combative, trying to push staff and elope. This morning, pt refusing medications, trying to ambulate on his own without safety awareness. Pt has had significant declined in physical endurance and stability of gait. Pt with cog wheel. Pt seen while sitting and having breakfast. Pt not oriented to year stating 2062. He reports he thinks month is July, and can't tell name of hospital or whether this is a hospital or not. He reports his visited him yesterday. He is able to say that he is waiting to go to another place. Past Psychiatric History: -Inpatient: S1 12/2021 -Denies hx of previous psych treatment Past medication trials: haldol, aricept. [facility] Social History: -Pt reports he lives with his significant other, Elzbieta. He does report getting more confused at night. Pt reports he had visual hallucinations 3 days ago, but not today. He is clear in that what he sees other people can't see it. He denies symptoms of depression, anxiety. He denies SI/HI. Trauma History: -Unknown Diagnostics Vital Signs (24Hr): Vital Signs - 24 hr 09/11/22 14:30 09/11/22 20:49 09/12/22 02:30 Temperature 97.6 F Pulse Rate 75 68 Respiratory Rate 16 18 17 Blood Pressure 114/67 101/61 Pulse Oximetry 98 98 Oxygen Delivery Method Room Air 09/12/22 05:00 09/12/22 09:00 Temperature 98.8 F 97.6 F Pulse Rate 59 76 Respiratory Rate 17 12 Blood Pressure 104/66 108/66 Pulse Oximetry 100 96 Oxygen Delivery Method Room Air Room Air BMI result Body Mass Index 20.5 Labs 09/11/22 06:04 09/11/22 09:00 Labs: Laboratory Results - last 48 hr 09/11/22 09/11/22 09/11/22 02:29 06:04 09:00 WBC 4.8 RBC 3.78 L Hgb 11.6 L Hct 34.3 L MCV 90.7 MCH 30.7 MCHC 33.8 RDW 12.2 Plt Count TNP MPV TNP Immature Gran % (Auto) 0.4 Neut % (Auto) 53.4 Lymph % (Auto) 27.5 [place] % (Auto) 12.3 H Eos % (Auto) 5.8 H Baso % (Auto) 0.6 Lymph # (Auto) 1.3 [place] # (Auto) 0.6 Eos # (Auto) 0.3 Baso # (Auto) 0.0 Abs Immat Gran (auto) 0.02 Absolute Neuts (auto) 2.6 Absolute Nucleated RBC 0.000 Nucleated RBC % (auto) 0.0 Sodium 140 Potassium 4.0 Chloride 105 Carbon Dioxide 23 Anion Gap 16 BUN 23 H Creatinine 0.80 Estim Creat Clear Calc 83.1 Estimated GFR > 60 Random Glucose 78 Calcium 9.3 Total Bilirubin 1.1 H AST 39 H ALT 20 Alkaline Phosphatase 50 Total Protein 6.1 L Albumin 3.6 Urine Color Dark Yellow Urine Appearance Clear Urine pH 5.5 Ur Specific [place] 1.025 Urine Protein Trace Urine Glucose (UA) Negative Urine Ketones Trace Urine Blood Trace H Urine Nitrite Negative Ur Leukocyte Esterase Negative Urine RBC 6-10 H Urine WBC 0-5 Ur Squamous Epith Cells 0-2 Urine Bacteria None Seen Hyaline Casts 0-2 Imaging Radiology Impressions: ITS Impressions Knee X-Ray 08/05/22 09:40 IMPRESSION: 1. No definite evidence for acute fracture or dislocation. 2. Small loose bodies. Cervical Spine CT 08/05/22 09:47 IMPRESSION: 1. No acute intracranial finding. 2. No acute maxillofacial fracture. Mild right premaxillary soft tissue swelling. 3. No acute fracture or malalignment of the cervical spine. Mild degenerative change. Face CT 08/05/22 09:47 IMPRESSION: 1. No acute intracranial finding. 2. No acute maxillofacial fracture. Mild right premaxillary soft tissue swelling. 3. No acute fracture or malalignment of the cervical spine. Mild degenerative change. Head CT 08/05/22 09:47 IMPRESSION: 1. No acute intracranial finding. 2. No acute maxillofacial fracture. Mild right premaxillary soft tissue swelling. 3. No acute fracture or malalignment of the cervical spine. Mild degenerative change. Chest X-Ray 08/07/22 14:50 IMPRESSION: No active cardiopulmonary disease. Mental Status Exam Mental Status Exam Narrative: Appearance: wearing hospital gown, fair hygiene, in NAD Behavior: cooperative but not as engaged Speech: mostly clear, some delayed in responses, soft tone, spontaneous Psychomotor: slight retardation noted TP: mostly linear, at times disorganized TC: hoping he could be with his and at home, bored Mood: okay Affect: blunted SI: denies HI: denies VH/AH: denies Delusions: no overt delusional content Insight/judgment: impaired x 2. Memory/cog: alert, not oriented to month, date, year vaguely to situation Medications Medications Current Medications Acetaminophen (Acetaminophen 325 Mg Tablet) 650 mg PO ONCE PRN PRN Reason: Pain, Mild (Pain Scale 1-3) Last Admin: 09/01/22 06:49 Dose: 650 mg Donepezil HCl (Donepezil Hcl 5 Mg Tablet) 5 mg PO DAILY [facility] Last Admin: 09/12/22 09:17 Dose: 5 mg Haloperidol (Haloperidol 0.5 Mg Tablet) 0.5 mg PO BID [facility] Last Admin: 09/12/22 09:23 Dose: Not Given Lorazepam (Lorazepam 1 Mg Tablet) 2 mg PO Q6H PRN PRN Reason: aggitation Last Admin: 09/11/22 12:09 Dose: 2 mg Multivitamins/Vitamin C (Multivitamin Tablet) 1 tab PO DAILY [facility] Last Admin: 09/12/22 09:17 Dose: 1 tab Pharmacy Consult (Consult Rx Perform Med Rec) 1 each MISCELLANE ONCE PRN PRN Reason: Consult order Allergies Allergies Allergy/AdvReac Type Severity Reaction Status Date / Time No Known Allergies Allergy Unverified 07/03/21 05:39 Assessment & Plan Assessment & Plan (1) Major neurocognitive disorder: Status: Acute Code(s): F03.90 - Unspecified dementia, unspecified severity, without behavioral disturb ance, psychotic disturbance, mood disturbance, and anxiety Plan Mr. Yañez is a 72 year-old male with hx of neurcognitive disorder, awaiting placement to skilled nursing facility who has been presenting as increasingly more confused since 09/10 with episodes of combativeness and agitation. CBC with diff, CMP and UA completed on 09/11 largely unremarkable. Pt afebrile. No signs of infection. He denies pain. He does appear significantly de- condition, with unsteady gait and weak. Pt does have some degree of cogwheel which could be secondary to haldol even on low dose. We can switch to low dose of olanzapine, less high potency, less likely to cause EPS. Pt would benefit from PT evaluation and treatment. PLAN 1. d/c haldol, start low dose olanzapine. If need to use IM, please use Olanzapine due to EPS with higher potency antipsychotics. 2. Order PT eval & treatment given unsteady gait, significantly worsened since he was admitted. Total time managing care of this patient today ____ minutes.
[2022-09-12 16:29] VITALS: BP 96/60; PULSE 61; RESP 16; TEMP 36.6; O2SAT 100
--- NOTE | 2022-09-12 18:20 | PC.NURSE ---
Discontinued #20 peripheral line in right forearm. Patient tolerated procedure well.
[2022-09-12] MEDS: HaloperidoL 0.5 MG TABLET PO (19:42)
--- NOTE | 2022-09-12 21:18 | MHC.CM.ED ---
MH application is still not active. No referrals placed, pending MH application. CM to follow for discharge planning.
[2022-09-13 03:00] VITALS: BP 131/64; PULSE 74; RESP 16; TEMP 36.7; O2SAT 96
--- NOTE | 2022-09-13 05:04 | MHC.EDTECH ---
pt phone charged and returned. Pt toileted and resting comfortably
[2022-09-13 07:37] VITALS: BP 131/64; PULSE 74; O2SAT 96
[2022-09-13] MEDS: Multivitamin TABLET 1 TAB PO (08:09)
[2022-09-13] MEDS: Donepezil HCl 5 MG TABLET PO (08:09)
[2022-09-13 08:12] VITALS: BP 95/57; PULSE 59; O2SAT 98
--- NOTE | 2022-09-13 10:23 | MHC.CM.ED ---
Patient remains in ER overflow. [facility] not active per [facility] [place]. Copy of patient's guardianship and Jeevan's order scanned into medical record. Physical therapy is recommending STR with likely transition to LTC. Continue to monitor for d/c needs.
--- NOTE | 2022-09-13 10:39 | MHC.EDTECH ---
With my assistance, Pt was able to get up into the shower and get cleaned up. Pt was found to have feces stuck to his bottom, this was cleaned while in the shower. Pts face was shaved. Pt was dried off and clean hospital gown and red socks put on. Pt agreed to sit in recliner for a while so I could clean his bed and change his bedding, which was done. Pt sat in recliner for about 45 minutes and then with help of FAYE Shine, Pt was boosted in bed and repositioned.
--- NOTE | 2022-09-13 10:42 | PC.NURSE ---
PT ALERT, PLEASANTLY CONFUSED, HE DENIES PAIN. REFUSED HOSPITAL BREAKFAST, HIS VISITED AND BROUGHT HIM BREAKFAST. COMPLIANT WITH MEDS. SHOWERED, SHAVED, COMPLETE BED CHANGE BY TECH AND UP IN RECLINER. PT IN BED SLEEPING AT THIS TIME. WILL CONTINUE TO OBSERVE.
[2022-09-13 11:20] LABS: Influenza A PCR NEGATIVE (Negative); Influenza B PCR NEGATIVE (Negative); Resp Syncy Virus RNA Qual PCR NEGATIVE (Negative); SARS COV2 PCR INHOUSE NEGATIVE (Negative)
--- NOTE | 2022-09-13 17:38 | PC.NURSE ---
pt assisted to BSC, voided and large BM. Eliz area cleaned, assisted back to bed, safety precautions in place. Call horton and belongings within reach.
--- NOTE | 2022-09-13 18:56 | MHC.EDTECH ---
Changed patients gown after dinner and assist patient to wash up.
[2022-09-13] MEDS: OLANZapine 2.5 MG TABLET PO (20:49)
--- NOTE | 2022-09-13 21:27 | PC.NURSE ---
Patient is pleasantly confused but hard to redirect on shift. Patient placed on closed observation for fall risk. Bed, chair alarms and cameras in place for safety. Took all scheduled meds, No distress at this time. Care is ongoing.
[2022-09-13 22:00] VITALS: BP 114/96; PULSE 81; RESP 16; TEMP 36.3; O2SAT 99
[2022-09-14 06:13] VITALS: BP 93/49; PULSE 55; RESP 16; TEMP 36.1; O2SAT 98
[2022-09-14 06:43] LABS: Glucose, Whole Blood 78 mg/dL (60-115)
--- NOTE | 2022-09-14 07:02 | PC.NURSE ---
Patient POC 78, asymptomatic. MD notified, no new orders. [place] juice and margo cracker giving and tolerated, breakfast tray up.
[2022-09-14] MEDS: Multivitamin TABLET 1 TAB PO (07:36)
[2022-09-14] MEDS: Donepezil HCl 5 MG TABLET PO (07:36)
[2022-09-14 08:14] VITALS: BP 135/84; PULSE 77; RESP 16; TEMP 36.9; O2SAT 100
[2022-09-14 09:54] VITALS: BP 135/84; PULSE 77; O2SAT 100
--- NOTE | 2022-09-14 10:52 | MHC.EDTECH ---
Assisted patient with changing his gown and pajama pants. Martha Du
--- NOTE | 2022-09-14 10:56 | PC.NURSE ---
Pt remains in ED overflow awaiting disposition. Pt is A&O x2 -confused about situation, and eager to leave, but easily redirectable. Pt did not voice any discomfort or distress. Pt ate most of meal
--- NOTE | 2022-09-14 12:17 | MHC.CM.ED ---
Addendum entered by Hansa Mariscal 09/14/22 14:42: Referral broadcasted within 50 miles at this time. Original Note: Patient remains in ER overflow. T/W spoke with guardian, Emilee. Copy of [employer] application obtained from Emilee's office. Emilee aware referral is being broadcasted in [facility]. Emilee also aware placement has been difficult to find due to 4 facilities closing in the area. Continue to monitor for d/c needs.
[2022-09-14 17:13] VITALS: BP 111/63; PULSE 76; RESP 12; TEMP 36.4; O2SAT 97
[2022-09-14] MEDS: OLANZapine 2.5 MG TABLET PO (17:48)
--- NOTE | 2022-09-14 18:12 | PC.NURSE ---
Juan José had a rough day. Stated that he had a dream which caused him to be agitated and more difficult to redirect than normal. He was ambulated several times, but continued to get out of bed and argue with staff when he was redirected. PRN olanzapine was given to him to attempt to calm him down. Otherwise no new complaints voiced by patients or observed by nursing staff.
[2022-09-15] MEDS: Donepezil HCl 5 MG TABLET PO (11:00)
[2022-09-15] MEDS: Multivitamin TABLET 1 TAB PO (11:00)
[2022-09-15 11:51] VITALS: BP 111/63; PULSE 76; O2SAT 97
--- NOTE | 2022-09-15 16:32 | PC.NURSE ---
Assumed care of patient 15:00 Pt A+Ox1, forgetful, confused, clear speech. Sleeping 15:00-15:30, then restless but easily redirectable. Pt communicated with Elzbieta 15:30 via cell phone. Denies pain, no complaints at this time Respirations WNL, nonlabored, on room air Ambulates 1 assist standby, pt up to recliner chair and requires intermittent redirection
[2022-09-15] MEDS: OLANZapine 2.5 MG TABLET PO (21:33)
[2022-09-15 21:59] VITALS: BP 142/68; PULSE 83; RESP 16; TEMP 36.5; O2SAT 98
[2022-09-16 06:19] VITALS: BP 124/54; PULSE 55; RESP 12; TEMP 36.2; O2SAT 94
[2022-09-16] MEDS: Donepezil HCl 5 MG TABLET PO (09:30)
[2022-09-16] MEDS: Multivitamin TABLET 1 TAB PO (09:30)
--- NOTE | 2022-09-16 09:42 | PC.NURSE ---
Offering no complaints at this time, visited this morning. Pt ambulated to bathroom with one assist.
[2022-09-16 10:22] VITALS: BP 124/54; PULSE 55; O2SAT 94
--- NOTE | 2022-09-16 14:09 | MHC.CM.ED ---
Patient remains in ER overflow. [facility] is not active per [facility] [place]. No bed offers at this time. Continue to monitor for d/c needs.
--- NOTE | 2022-09-16 15:59 | PC.NURSE ---
Ambulates around overflow with no devices, encouraged to use walker, pt declines. Walks with steady gait with this RN.
[2022-09-16 16:16] VITALS: BP 141/81; PULSE 87; RESP 16; TEMP 36.6; O2SAT 99
--- NOTE | 2022-09-16 20:49 | PC.NURSE ---
Pt is restless and unable to sit still in bed. Pt continues to get out of bed and his chair and walk into other pt's rooms. Pt is verbally expressing that he needs to leave and go do his errands. Pt is confused at baseline. This RN will give PRN Ativan to help pt relax and sleep. Video monitor is set up next to pt's bed.
[2022-09-16] MEDS: LORazepam 1 MG TABLET PO (21:09)
[2022-09-16] MEDS: OLANZapine 2.5 MG TABLET PO (21:09)
--- NOTE | 2022-09-16 21:29 | PC.NURSE ---
Pt noted to have clear and yellow drainage coming from the right eye. Provider notified. Plan to start treatment for conjunctivitis with erythromycin cream.
[2022-09-16] MEDS: Erythromycin Base 0.5% Oph Oin 1 GM TUBE 1 CM EYE-RIGHT (22:12)
[2022-09-17 07:45] VITALS: BP 99/55; PULSE 61; RESP 18; TEMP 36.4; O2SAT 99
[2022-09-17] MEDS: Donepezil HCl 5 MG TABLET PO (07:58)
[2022-09-17] MEDS: Multivitamin TABLET 1 TAB PO (07:58)
[2022-09-17] MEDS: Erythromycin Base 0.5% Oph Oin 1 GM TUBE 1 CM EYE-RIGHT ×3 (07:58→21:42)
[2022-09-17] MEDS: LORazepam 1 MG TABLET PO (10:31)
--- NOTE | 2022-09-17 13:24 | MHC.CM.ED ---
Met with pt to review LTC placement: no bed offers per review of referral communications: Pt engaging in activity w/staff: offers no complaints at this time. ED CM to follow
[2022-09-17 14:00] VITALS: BP 119/77; PULSE 69; RESP 18; TEMP 36.4; O2SAT 100
--- NOTE | 2022-09-17 18:14 | MHC.EDTECH ---
Brought patient dinner tray.
--- NOTE | 2022-09-17 18:15 | MHC.EDTECH ---
Brought patient dinner tray.
[2022-09-17 22:00] VITALS: BP 110/70; PULSE 68; RESP 16; TEMP 36.4; O2SAT 99
[2022-09-17] MEDS: OLANZapine 2.5 MG TABLET PO (22:47)
--- NOTE | 2022-09-18 00:39 | PC.NURSE ---
Patient sleeping throughout night. Incontinent of urine x1.Patient confused at baseline although redirectable.
[2022-09-18 05:58] VITALS: BP 109/57; PULSE 62; RESP 16; TEMP 36.5; O2SAT 95
--- NOTE | 2022-09-18 05:59 | MHC.EDTECH ---
0600 rounding done ,vitals sign taken ,pt sleeping and is dry ,pt was reposition ,fresh ice water given .
[2022-09-18 10:55] VITALS: BP 113/64; PULSE 67; RESP 16; O2SAT 97
--- NOTE | 2022-09-18 11:24 | PC.NURSE ---
Addendum entered by Tori Sin RN 09/18/22 14:07: Patient awake and alert for lunch. Ate 75%. Spoke to on phone. Attempted to get OOB. Redirected. Original Note: Patient mostly sleeping. Mostly not following commands. Unable to assess orientation. Not answering appropriately. Unable to take po medications safely. Provider notified. No new orders at present. Will continue to monitor.
[2022-09-18] MEDS: Erythromycin Base 0.5% Oph Oin 1 GM TUBE 1 CM EYE-RIGHT ×3 (13:13→22:10)
--- NOTE | 2022-09-18 15:42 | PC.NURSE ---
Patient has no complaints,sleeping ,easily arousable,lungs sounds diminished ,not in any distress.
[2022-09-18] MEDS: OLANZapine 2.5 MG TABLET PO (22:10)
--- NOTE | 2022-09-18 23:15 | PC.NURSE ---
Report received. Pt resting quietly with eyes closed Respirations even and unlabored. No acute distress noted.
[2022-09-19] VITALS (7 sets, daily range): BP systolic 105–147; BP diastolic 53–77; PULSE 66–93; RESP 14–18; TEMP 36.3–38.8; O2SAT 93–95
--- NOTE | 2022-09-19 00:54 | MHC.EDTECH ---
i got report from previous tech, kylah is sleeping comfortable
--- NOTE | 2022-09-19 06:50 | MHC.EDTECH ---
pt got up to use the bathroom but as he sat on the commode he stated he cant go so we tried the urinal and he stated no i dont have to go so back to bed he went
--- NOTE | 2022-09-19 07:38 | PC.NURSE ---
pt resting with eyes closed, wet cough noted - chest x-ray ordered. NAD noted, respirations otherwise even and unlabored.
--- NOTE | 2022-09-19 10:04 | MHC.CM.ED ---
Patient remains in ER overflow. [id number] is still not active per [facility] [place]. Clinical updates sent to facilities still following patients: [facility], [facility], [facility], [facility], [facility], and [facility]. Continue to monitor for d/c needs.
[2022-09-19] MEDS: Erythromycin Base 0.5% Oph Oin 1 GM TUBE 1 CM EYE-RIGHT ×4 (10:14→20:06)
[2022-09-19 18:33] LABS: COVID-19 Test Negative (Negative); IDNOW Serial# 9DB6401D
--- NOTE | 2022-09-19 19:59 | MHC.EDTECH ---
late entry 1800 pt ambulated to bathroom w 2x assist. pt pushes walker away when offered. pt held t/w hands to aid ambulation. pt attempted to use toilet standing but was unsuccessful, getting urine on floor and self. pt changed into new elza and socks, ambulated to recliner. t/w set pt up with dinner tray. assisted pt 1x from recliner to bed. provided warm blanket, repositioning, new drink. pt resting comfortably at this time.
[2022-09-19] MEDS: OLANZapine 2.5 MG TABLET PO (20:05)
[2022-09-19] MEDS: Acetaminophen 325 MG TABLET 650 MG PO (20:35)
[2022-09-20 01:25] VITALS: BP 104/45; PULSE 83; RESP 17; TEMP 36.9; O2SAT 94
[2022-09-20 06:15] VITALS: BP 97/65; PULSE 83; RESP 19; TEMP 36.4; O2SAT 94
--- NOTE | 2022-09-20 06:16 | PC.NURSE ---
pt assessed, slept during the night, congested cough, VS obtained
[2022-09-20] MEDS: Donepezil HCl 5 MG TABLET PO (09:54)
[2022-09-20] MEDS: Erythromycin Base 0.5% Oph Oin 1 GM TUBE 1 CM EYE-RIGHT ×4 (09:54→20:11)
[2022-09-20] MEDS: Multivitamin TABLET 1 TAB PO (09:54)
[2022-09-20 10:24] VITALS: BP 97/65; PULSE 83; O2SAT 94
--- NOTE | 2022-09-20 12:45 | MHC.EDTECH ---
Pt was given a complete bed bath by me with extensive assistance. Body lotion applied on limbs, hands and feet. Body powder applied in under arms. Pt was shaved and provided oral care with total assistance. Pt was ambulated with limited assistance of 2. Pt refuses walker. Pt ambulated 350 feet. Pt was repositioned to recliner, feet elevated and provided with water as requested by him. Pt dranked 360ml's of water. Pt is asking about his . We have redirected him by reminding him she will come by later.
[2022-09-20 13:44] VITALS: BP 118/71; PULSE 80; RESP 16; TEMP 36.7; O2SAT 94
[2022-09-20 20:09] VITALS: BP 111/68; PULSE 82; RESP 20; TEMP 36.6; O2SAT 97
[2022-09-20] MEDS: OLANZapine 2.5 MG TABLET PO (20:11)
[2022-09-21 05:09] VITALS: BP 142/71; PULSE 76; RESP 18; TEMP 36.7; O2SAT 99
--- NOTE | 2022-09-21 06:43 | PC.NURSE ---
breakfast tray provided
[2022-09-21] MEDS: Multivitamin TABLET 1 TAB PO (08:06)
[2022-09-21] MEDS: Erythromycin Base 0.5% Oph Oin 1 GM TUBE 1 CM EYE-RIGHT ×3 (08:06→20:28)
[2022-09-21] MEDS: Donepezil HCl 5 MG TABLET PO (08:06)
--- NOTE | 2022-09-21 11:29 | MHC.CM.ED ---
Addendum entered by Hansa Mariscal 09/21/22 14:33: Spoke with Emilee via telephone. Emilee aware [facility] is unable to offer a bed. Emilee also aware [facility] and [facility] will need copies of patient's bank accounts for business office to review. Emilee just received RFI from [employer] with a list of things they will need. Emilee is going to patient's bank tomorrow and will obtain bank states. They will be provided to after that. Original Note: Patient remains in ER overflow. [facility] and [facility] might be able to offer a bed, but they would need a copy of patient's bank statements. T/W spoke with Guardian, Emilee, via telephone at [phone]. Emilee is requesting T/W re-refer to [facility]. T/W spoke with [facility]. They still do not have a bed for patient. T/W attempted to re-reach out to Emilee. Left message requesting return telephone call. Continue to monitor for d/c needs.
[2022-09-21 16:26] VITALS: BP 124/61; PULSE 74; RESP 18; TEMP 36.8; O2SAT 98
--- NOTE | 2022-09-21 17:44 | PC.NURSE ---
Patient restless throughout the shift, often getting out of bed and trying to walk the unit. Patient easily redirected back to recliner or bed. Now resting in bed, able to reposition independently.
[2022-09-21] MEDS: OLANZapine 2.5 MG TABLET PO (20:28)
--- NOTE | 2022-09-22 00:30 | PC.NURSE ---
Received report from off going RN. Pt currently resting quietly with eyes closed. Respirations even and unlabored. No acute distress noted.
[2022-09-22 06:00] VITALS: BP 111/71; PULSE 66; RESP 16; TEMP 36.3; O2SAT 95
[2022-09-22 07:45] VITALS: BP 99/59; PULSE 72; RESP 16; TEMP 37.2; O2SAT 97
--- NOTE | 2022-09-22 07:59 | PC.NURSE ---
Pt out of bed into recliner with two assist. Was offered breakfast, pt refused keeping only the coffee. Resting quietly in recliner with video monitor on.
[2022-09-22] MEDS: Erythromycin Base 0.5% Oph Oin 1 GM TUBE 1 CM EYE-RIGHT ×4 (08:44→20:30)
[2022-09-22] MEDS: Donepezil HCl 5 MG TABLET PO (08:44)
[2022-09-22] MEDS: Multivitamin TABLET 1 TAB PO (08:44)
--- NOTE | 2022-09-22 10:03 | MHC.CM.ED ---
Patient remains in ER overflow. [facility] may be able to offer a bed after they review patient's bank statements. Patient's guardian, Emilee, has an appointment to go to patient's bank today. Emilee will provide these statements to CM. Continue to monitor for d/c needs.
--- NOTE | 2022-09-22 15:10 | PC.NURSE ---
Assumed care of patient, pt resting comfortably in bed.
[2022-09-22 19:04] VITALS: BP 111/86; PULSE 66; RESP 16; O2SAT 98
--- NOTE | 2022-09-22 19:05 | MHC.EDTECH ---
patient is resting comfortably in bed. patient was not awake for dinner and did not want to eat when asked.
[2022-09-22 20:12] VITALS: BP 114/61; PULSE 68; RESP 17; TEMP 36.4; O2SAT 98
--- NOTE | 2022-09-22 20:13 | MHC.EDTECH ---
i got report from previous Tech Chikis, pt is resting in bed vitals were taken and a cup of cold water as he requested was given
[2022-09-22] MEDS: OLANZapine 2.5 MG TABLET PO (20:30)
--- NOTE | 2022-09-23 04:04 | PC.NURSE ---
Assumed care at19:00. Pt slept through dinner, was given a turkey sandwich and ice cream upon waking up. Pt ate 100% of meal, walked to the bathroom twice throughout shift, one assist with steady gait. Pt took his HS meds without difficulty, resting quietly, eyes closed throughout most of shift. Pt awoke a few times in confused state and was easily redirectable.
--- NOTE | 2022-09-23 05:56 | MHC.EDTECH ---
pt ambulated to BR x2 and did not void , back to bed he went now he is resting
[2022-09-23 06:01] VITALS: BP 111/67; PULSE 61; RESP 15; TEMP 36.1; O2SAT 95
[2022-09-23] MEDS: Multivitamin TABLET 1 TAB PO (07:20)
[2022-09-23] MEDS: Donepezil HCl 5 MG TABLET PO (07:21)
[2022-09-23] MEDS: Erythromycin Base 0.5% Oph Oin 1 GM TUBE 1 CM EYE-RIGHT ×4 (07:21→19:32)
[2022-09-23 08:01] VITALS: BP 100/58; PULSE 65; RESP 18; TEMP 36.6; O2SAT 98
[2022-09-23 09:16] VITALS: BP 100/58; PULSE 65; O2SAT 98
--- NOTE | 2022-09-23 10:39 | MHC.EDTECH ---
Assisted patient out of bed, to and from restroom and back in bed. Martha Du
[2022-09-23 19:00] VITALS: BP 145/75; PULSE 76; RESP 16; TEMP 36.7; O2SAT 93
[2022-09-23] MEDS: OLANZapine 2.5 MG TABLET PO (19:32)
[2022-09-24 06:00] VITALS: BP 114/56; PULSE 61; RESP 17; TEMP 36.3; O2SAT 100
[2022-09-24] MEDS: Donepezil HCl 5 MG TABLET PO (07:39)
[2022-09-24] MEDS: Multivitamin TABLET 1 TAB PO (07:39)
[2022-09-24] MEDS: Erythromycin Base 0.5% Oph Oin 1 GM TUBE 1 CM EYE-RIGHT ×4 (07:39→20:17)
[2022-09-24 14:00] VITALS: BP 98/55; PULSE 73; RESP 17; TEMP 36; O2SAT 96
--- NOTE | 2022-09-24 16:18 | PC.NURSE ---
Pt sleeps between meals, alert, calm and cooperative during care. Oriented to self only. Pleasantly confused. Denies pain, SOB or N&V. Set up with meals and consumed with no issues. Voided in urinal, scheduled toileting. Mepilex applied to coccyx on open area, Deana [employer] made aware of finding. Barrier cream applied, turned and reposition with pillows. Video monitor in place.
[2022-09-24] MEDS: OLANZapine 2.5 MG TABLET PO (20:15)
[2022-09-24 22:02] VITALS: BP 121/71; PULSE 63; RESP 16; TEMP 36.9; O2SAT 99
[2022-09-25 05:15] VITALS: BP 114/62; PULSE 54; RESP 17; TEMP 36.5; O2SAT 95
--- NOTE | 2022-09-25 09:29 | PC.NURSE ---
patient sleeping. chest rise and fall equal, unlabored. no signs of distress noted. will CTM
--- NOTE | 2022-09-25 11:30 | PC.NURSE ---
pt awake. alert, confused. cooperative and pleasant with staff. given coffee and snack. will CTM
[2022-09-25] MEDS: Donepezil HCl 5 MG TABLET PO (12:00)
[2022-09-25] MEDS: Multivitamin TABLET 1 TAB PO (12:00)
[2022-09-25] MEDS: Erythromycin Base 0.5% Oph Oin 1 GM TUBE 1 CM EYE-RIGHT (12:01)
--- NOTE | 2022-09-25 12:57 | MHC.CM.ED ---
Patient remains in ER overflow. Copies of bank statements sent to [facility]. Waiting to see if they can acept pateint. Continue to monitor for d/c needs.
[2022-09-25 14:00] VITALS: BP 133/71; PULSE 73; RESP 18; TEMP 36.1; O2SAT 97
[2022-09-25] MEDS: OLANZapine 2.5 MG TABLET PO ×2 (20:32→23:27)
--- NOTE | 2022-09-26 05:57 | PC.NURSE ---
patient attempting to get out of bed multiple times overnight. prn zyprexa given with good effect. patient voiding in urinal.
--- NOTE | 2022-09-26 07:25 | PC.NURSE ---
Addendum entered by Ingrid Malhotra RN 09/26/22 07:26: error, pt currently sleeping in bed, safety measures in place, camera in place. Original Note: Resumed care of this patient this morning, currently sitting on the edge of the bed eating his breakfast. Denies pain at this time, all needs met at this time
--- NOTE | 2022-09-26 09:18 | MHC.CM.PN ---
PT CONTINUES TO WAIT FOR LTC PLACEMENT 84 REFERRALS ARE OUT, TWO SNFS ARE FOLLOWING PER CM NOTES, BANK STATEMENTS WERE SENT TO THE SNFS ON MONDAY CM DID REACH OUT FOR UPDATES FROM THE SNF, HOWEVER, PER MED REPORT, PT RECEIVED PRN ZYPREXA YESTERDAY WHICH WILL BE A BARRIER TO DC IF A BED IS OPEN
[2022-09-26] MEDS: Erythromycin Base 0.5% Oph Oin 1 GM TUBE 1 CM EYE-RIGHT ×2 (09:51→16:29)
[2022-09-26] MEDS: Donepezil HCl 5 MG TABLET PO (09:51)
[2022-09-26] MEDS: Multivitamin TABLET 1 TAB PO (09:51)
[2022-09-26 10:04] VITALS: BP 144/72; PULSE 75; RESP 18; TEMP 36.2; O2SAT 99
[2022-09-26 14:03] VITALS: BP 111/63; PULSE 70; RESP 18; TEMP 36.1; O2SAT 99
--- NOTE | 2022-09-26 16:37 | PC.NURSE ---
Pt sleeping in bed. No c/o pain at this time. All needs in reach. Telesitter and bed alarm on
[2022-09-26] MEDS: OLANZapine 2.5 MG TABLET PO (20:57)
[2022-09-26 20:59] VITALS: BP 111/59; PULSE 68; RESP 15; TEMP 37.1; O2SAT 97
[2022-09-27 07:30] VITALS: BP 139/73; PULSE 73; RESP 16; TEMP 36.4; O2SAT 98
[2022-09-27] MEDS: Donepezil HCl 5 MG TABLET PO (08:24)
[2022-09-27] MEDS: Multivitamin TABLET 1 TAB PO (08:24)
--- NOTE | 2022-09-27 09:09 | MHC.CM.ED ---
Patient remains in ER Overflow. [facility] is willing to offer a bed. Attempted to speak with guardian, Emilee Rahmanrenato via telephone at [phone]. Left message requesting return telephone call. Continue to monitor for d/c needs.
--- NOTE | 2022-09-27 09:36 | PC.NURSE ---
Patient resting in bed at start of shift. Patient awake and taking medications as prescribed. in at bedside bringing patient breakfast.
--- NOTE | 2022-09-27 11:12 | MHC.CM.ED ---
Addendum entered by Hansa Mariscal 09/27/22 12:19: [facility]. Original Note: Spoke with guardian, Emilee via telephone at [phone] [facility]. Emilee is requesting referrals to the [place], [place] and [place] areas because patient has family there and will relocate. Referrals made via [facility]. Continue to monitor for d/c needs.
[2022-09-27 13:11] VITALS: BP 111/59; PULSE 68; O2SAT 97
--- NOTE | 2022-09-27 13:23 | PC.NURSE ---
Patient up in chair eating lunch. Using commode at bedside.
--- NOTE | 2022-09-27 14:09 | MHC.EDTECH ---
patient refused sponge bath but did a complete bed sheet change.
--- NOTE | 2022-09-27 14:12 | PC.NURSE ---
Patient able to go outside with in patient nursing staff in wheel chair. Now back in chair.
--- NOTE | 2022-09-27 15:15 | PC.NURSE ---
Assumed care fore this pt at this time, pt up in the chair.
[2022-09-27] MEDS: Erythromycin Base 0.5% Oph Oin 1 GM TUBE 1 CM EYE-RIGHT ×2 (16:36→19:29)
[2022-09-27] MEDS: OLANZapine 2.5 MG TABLET PO (19:29)
[2022-09-27 19:35] VITALS: BP 103/58; PULSE 63; RESP 20; TEMP 36.6; O2SAT 99
--- NOTE | 2022-09-27 21:24 | PC.NURSE ---
Assumed care, Pt Alert to self, sitting up watching TV. VSS, camera in room and bed alarm on. Safety maintained.
[2022-09-28 04:04] VITALS: BP 131/71; PULSE 60; RESP 18; TEMP 36.6; O2SAT 100
--- NOTE | 2022-09-28 07:31 | PC.NURSE ---
Pt requesting loida/riley hernandez called.
[2022-09-28] MEDS: Multivitamin TABLET 1 TAB PO (08:10)
[2022-09-28] MEDS: Donepezil HCl 5 MG TABLET PO (08:10)
[2022-09-28 09:38] VITALS: BP 131/71; PULSE 60; O2SAT 100
--- NOTE | 2022-09-28 11:04 | PC.NURSE ---
Pt washed up, brushed teeth, linen changed and now sitting in chair
--- NOTE | 2022-09-28 11:08 | PC.NURSE ---
Ate 100% of breakfast
[2022-09-28 11:57] VITALS: BP 116/83; PULSE 67; RESP 16; TEMP 36.6; O2SAT 99
--- NOTE | 2022-09-28 12:59 | PC.NURSE ---
pt ate 100% lunch, ambulating around unit using walker and stand by assist w pct.
--- NOTE | 2022-09-28 13:07 | MHC.CM.ED ---
Addendum entered by Hansa Mariscal 09/28/22 14:57: [facility] does not have a bed for patient. Addendum entered by Hansa Mariscal 09/28/22 14:44: Received telephone call from Emilee. She will speak to Elzbieta about [facility] and get back to . Original Note: Patient remains in ER overflow. [facility] sister facility, [facility] in [place] may be able to offer a bed. It's 25 miles from [place]. [facility] is still reviewing financials. T/W left a voicemail with building to see if there has been any progress on this. Clinical information faxed to [facility]. umer Raya from [facility] stated LTC beds are tight at this time. Clinical information faxed to Elton at [facility]. Waiting to hear back from him. Left messages with the following facilities [facility], [facility], [facility], [facility], [facility], [facility] and [facility]. Left messge with guardianEmilee via telephone at [phone], requesting a return telephone call to discuss placement options.
[2022-09-28 19:46] VITALS: BP 140/75; PULSE 78; RESP 18; TEMP 36.8; O2SAT 98
[2022-09-28] MEDS: OLANZapine 2.5 MG TABLET PO (20:02)
--- NOTE | 2022-09-28 22:23 | PC.NURSE ---
Patient alert, oriented to self, redirectable. Offers no complaints at this time. Bedtime medication administered, assisted patient into bed.
--- NOTE | 2022-09-29 05:11 | PC.NURSE ---
Patient sleeping on shift, no distress. Assisted to the bathroom. No behavioral concerns, care in progress.
[2022-09-29 05:51] VITALS: BP 117/54; PULSE 61; RESP 18; TEMP 37.1; O2SAT 100
[2022-09-29] MEDS: Multivitamin TABLET 1 TAB PO (08:21)
[2022-09-29] MEDS: Donepezil HCl 5 MG TABLET PO (08:21)
[2022-09-29 08:47] VITALS: BP 115/53; PULSE 84; RESP 16; TEMP 36.8; O2SAT 97
[2022-09-29 11:11] VITALS: BP 115/53; PULSE 84; O2SAT 97
[2022-09-29 12:44] LABS: COVID-19 Test Invalid (Negative); IDNOW Serial# 08D9AD1C
[2022-09-29 13:27] LABS: COVID-19 Test Negative (Negative); IDNOW Serial# BCCEAD1C
== END 2022-09-29 13:24 ==
PROVIDERS: Internal Medicine; Nurse Practitioner Family; Physician Assistant; Physician Assistant Medical; Emergency Provider Student in an Organized Health Care Education/Training Program
DX: S00.83XA Contusion of other part of head, initial encounter (principal); S80.01XA Contusion of right knee, initial encounter; S00.211A Abrasion of right eyelid and periocular area, initial encounter; W01.0XXA Fall on same level from slipping, tripping and stumbling without subsequent striking against object, initial encounter; F03.90 Unspecified dementia, unspecified severity, without behavioral disturbance, psychotic disturbance, mood disturbance, and anxiety; Y93.01 Activity, walking, marching and hiking; Y92.480 Sidewalk as the place of occurrence of the external cause; Y99.9 Unspecified external cause status; R07.89 Other chest pain; M54.2 Cervicalgia; R51.9 Headache, unspecified; H57.11 Ocular pain, right eye; R26.89 Other abnormalities of gait and mobility; R05.9 Cough, unspecified; H10.31 Unspecified acute conjunctivitis, right eye; R26.81 Unsteadiness on feet; Z20.822 Contact with and (suspected) exposure to COVID-19; Z20.828 Contact with and (suspected) exposure to other viral communicable diseases; Z79.899 Other long term (current) drug therapy
CPT/HCPCS: 0241U; 36415; 70450; 70486; 71045; 72125; 73562; 80048; 80053; 80076; 80307; 81001; 81003; 82947; 83605; 84484; 85025; 87040; 87635; 93005; 96360; 96372; 97110; 97116; 97162; 99285; J1200; J2060